=== PATIENT | male | born 1935 | race Caucasian/White ===

== ENCOUNTER 2017-03-12 13:19 | Emergency (ER) | payer MEDICARE, BC ==
[2017-03-12 14:34] LABS: #Eosinphils 0.3 thou/uL (0.0-0.7); #Lymphocytes 1.1 thou/uL (1.20-3.40); #Monocytes 0.8 thou/uL (0.11-0.59); #Neutrophils 8.3 thou/uL (1.40-6.50); %Basophils 0.4 % (0.0-1.0); %Eosinophils 2.7 % (0.0-10.0); %Lymphocytes 10.6 % (21.0-51.0); %Monocytes 7.7 % (0.0-10.0); %Neutrophils 78.6 % (42.0-75.0); Hemoglobin 14.9 g/dL (14.0-18.0); Mean Corpuscular Hemoglobin 34.3 pg (27.0-31.0); Mean Platelet Volume 9.4 fL (7.4-10.4); Platelet Count 166 thou/uL (130-400); Red Blood Cell (RBC) Count 4.35 mill/uL (4.70-6.10); White Blood Cell (WBC) Count 10.5 thou/uL (4.8-10.8)
--- NOTE | 2017-03-12 14:36 | RAD ---
PORTABLE AP CHEST: Date: 03-12-17 History: Worsening confusion. Altered mental status. Comparison: 08-14-12 FINDINGS: Post-surgical changes related to CABG are again noted. Fractured second sternal wire. Cardiac silhoue tte is magnified by projection and patient rotation. Pulmonary vasculature is within normal limits an d the lungs are clear. There has been no interval change from prior exam. IMPRESSION: No acute cardiopulmonary process. POS: [facility]
[2017-03-12 14:54] LABS: ALT (SGPT) 32 U/L (8-55); AST (SGOT) 24 U/L (5-34); Albumin 4.1 g/dL (3.4-4.8); Alkaline Phosphatase 50 U/L (40-150); Anion Gap 16 mmol/L (10-20); BUN (Urea Nitrogen) 16 mg/dL (8.4-25.7); Bilirubin, Total 0.6 mg/dL (0.2-1.2); Calc. Creatinine Clearance 0 mL/min (70-130); Calcium 10.2 mg/dL (7.8-10.44); Carbon Dioxide 26 mmol/L (23-31); Chloride 96 mmol/L (98-107); Estimated GFR-MDRD 59; Globulin 3.6 g/dL (2.4-3.5); Glucose 150 mg/dL (83-110); Potassium 3.7 mmol/L (3.5-5.1); Protein, Total 7.7 g/dL (5.8-8.1); Sodium 134 mmol/L (136-145)
--- NOTE | 2017-03-12 15:50 | CT ---
NONCONTRAST CT HEAD: Date: 03-12-17 History: Worsening confusion/altered mental status. Comparison: 08-14-12 FINDINGS: Again noted are areas of encephalomalacia seen within the right frontoparietal and left parietal lobe s, larger in size on the right, which are unchanged from the prior exam. There is decreased attenuati on likely related to prior areas of infarction. Areas of decreased attenuation are again seen in the periventricular white matter, again most likely reflective of chronic small vessel ischemic changes. There is a small low density area seen within the left basal ganglia, not definitely present on the p rior study, suggestive of a lacunar infarction of indeterminate age. No acute cortical infarction, he morrhage, mass effect, or midline shift is seen. Cerebral volume loss is again noted. Ventricular sys tem is normal in size, shape, and position for the degree of sulcal atrophy. No other interval change . IMPRESSION: 1. 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 MRI would be a more sensitive s tudy for evaluation of acute infarction. 2. Areas of encephalomalacia in the right frontoparietal and left parietal lobes likely related to re mote areas of infarction. 3. Chronic small vessel ischemic changes and cerebral volume loss. POS: [facility]
[2017-03-12] MEDS ORDERED: Haloperidol 1 MG TAB ONE (18:15)
== END 2017-03-12 18:19 | disposition home or self-care (01) ==
LOC: ERS 13:19
DX: F03.90 Unspecified dementia, unspecified severity, without behavioral disturbance, psychotic disturbance, mood disturbance, and anxiety (principal); I10 Essential (primary) hypertension; I48.91 Unspecified atrial fibrillation
CPT/HCPCS: 36415; 70450; 71045; 80053; 85025

== ENCOUNTER 2017-04-02 09:07 | Outpatient (CLI) | payer MEDICARE, BC ==
--- NOTE | 2017-04-02 10:39 | MRI ---
MRI BRAIN NONCONTRAST: DATE: 04/02/17 HISTORY: 82-year-old male with R41.3 memory impairment, F91.9 behavioral change, and dementia. COMPARISON: MRI of 08/15/12. FINDINGS: There is diffuse brain parenchymal volume loss. There is mild to moderate ventriculomegaly on an ex v acuo basis due to the diffuse parenchymal volume loss. There is a moderate sized region of right devaughn etal encephalomalacia and gliosis representing an old infarction in the right MCA territory. There is a smaller region of contralateral left parietal encephalomalacia and gliosis representing an old infarction in the left MCA territory. This has mild hemosiderin staining, indicating previous mi ld hemorrhagic transformation. There is a stronger but smaller focal hemosiderin stain at the posterior aspect of the right external capsule consistent with a small focus of prior hemorrhage. There are several tiny focal discrete T2 hyperintensities in the inferior aspect of the left basal ganglia, most of which represent mildly dil ated Virchow-Moreno spaces. There are more patchy, ill-defined regions of T2 hyperintensity in the bibiana ateral thalami and bilateral basal ganglia, suggestive of chronic ischemic changes. There are moderat e chronic ischemic white matter changes in the periventricular white matter and deep cerebral white m atter. There is no restricted diffusion to indicate any acute infarction. There is no acute intracran ial hemorrhage. No mass effect, midline shift, or any significant interval change compared to 3. There are also chronic ischemic white matter changes of the kay and midbrain. IMPRESSION: 1. Moderate sized old right parietal infarction in the right middle cerebral artery territory. 2. Smaller old left parietal infarction in the left middle cerebral artery territory. 3. Small focus of remote hemorrhage in the posterior aspect of the right external capsule. 4. Chronic ischemic changes in the bilateral thalami and basal ganglia. 5. Involutional changes and diffuse, moderate chronic ischemic white matter changes. 6. No acute findings and no interval change compared to 08/15/12. JOSHUA Bejarano POS: [facility]
== END 2017-04-02 09:08 | disposition home or self-care (01) ==
LOC: MRI 09:07
PROVIDERS: ATTEND Student in an Organized Health Care Education/Training Program
DX: R41.3 Other amnesia (principal); F91.9 Conduct disorder, unspecified; G93.89 Other specified disorders of brain; Z86.73 Personal history of transient ischemic attack (TIA), and cerebral infarction without residual deficits
CPT/HCPCS: 36415; 70551; 82164; 82306; 82607; 84207; 84425; 85652; 86038; 86140; 86592; 95816

== ENCOUNTER 2017-05-05 12:33 | Observation (INO) | payer MEDICARE, BC ==
[2017-05-05 15:14] VITALS: BMI 26.9
[2017-05-05] MEDS ORDERED: Senokot 8.6 MG TAB PO PRN (17:02)
[2017-05-05] MEDS ORDERED: Calcium Carbonate 500 MG ChewTAB PO PRN (17:02)
[2017-05-05] MEDS ORDERED: Milk Of Magnesia 30 ML UDCUP PO PRN (17:02)
[2017-05-05] MEDS ORDERED: Nitroglycerin 0.4 MG TAB (25 Tab Bottle) PO PRN (17:02)
[2017-05-05] MEDS ORDERED: hydrALAZINE 20 MG/ML VIAL SLOW IVP PRN (17:07)
[2017-05-05] MEDS ORDERED: Haloperidol 1 MG TAB PO PRN (17:10)
[2017-05-05] MEDS ORDERED: Potassium Chloride 20 MEQ TAB PO SCH (17:15)
[2017-05-05] MEDS ORDERED: Magnesium Sulfate 2 GM in Sodium Chloride 0.9% 100 ML IVPB SCH (17:15)
[2017-05-05] MEDS ORDERED: Atropine Sulfate 1 mg/1 ml Vial IVP PRN (17:22)
[2017-05-05 17:53] LABS: Prothrombin Time 43.6 SEC (12.0-14.7)
[2017-05-05 17:55] LABS: INR-International Normal Ratio 4.3
[2017-05-05 18:18] LABS: Troponin I 0.014 ng/mL (< 0.028)
[2017-05-05] MEDS: Donepezil HCl 5 MG TAB PO SCH (19:42)
[2017-05-05] MEDS: Atorvastatin Calcium 20 MG TAB PO SCH (19:42)
[2017-05-05] MEDS: Docusate 100 MG CAP PO SCH (19:42)
[2017-05-05] MEDS: TROSPIUM 20 MG TABLET PO SCH (19:42)
--- NOTE | 2017-05-05 22:55 | PDOC.PN ---
- Subjective Encounter Start Date: 05/05/17 Encounter Start Time: 21:00 Patient seen and examined. Note dictated. - Objective Resuscitation Status: Resuscitation Status FULL:Full Resuscitation MAR Reviewed: Yes Vital Signs & Weight: Vital Signs (12 hours) Temp Pulse Resp BP BP BP BP 05/05/17 19:42 97.6 F 58 L 16 167/72 H 166/72 H 168/73 H 05/05/17 16:55 98.4 F 60 20 05/05/17 14:43 60 20 170/85 H Pulse Ox 05/05/17 19:42 95 05/05/17 16:55 05/05/17 14:43 96 Weight Weight 161 lb 14.4 oz I&O: 05/04/17 05/05/17 05/06/17 06:59 06:59 06:59 Intake Total 120 Output Total 386 Balance -266 EKG Reviewed by me: Yes (Afib with SVR) Phys Exam - Physical Examination Constitutional: NAD HEENT: PERRLA, moist MMs Neck: no nodes, no JVD, supple Respiratory: no wheezing, no rales, no rhonchi, clear to auscultation bilateral Cardiovascular: no rub, irregular Bradycardic, No heaves/pulsations Gastrointestinal: soft, non-tender, no distention, positive bowel sounds Musculoskeletal: no edema, pulses present Neurological: non-focal, normal sensation, moves all 4 limbs Psychiatric: A&O x 3 Skin: no rash Dx/Plan - Plan * Dictated Review of Systems - Review of Systems Constitutional: negative: fever, chills, sweats, weakness, malaise Eyes: negative: Pain, Vision Change, Conjunctivae Inflammation, Eyelid Inflammation, Redness ENT: negative: Ear Pain, Ear Discharge, Nose Pain, Nose Discharge, Nose Congestion, Mouth Pain, Mouth Swelling, Throat Pain, Throat Swelling, Other Respiratory: negative: Cough, Dry, Shortness of Breath, Hemoptysis, SOB with Excertion, Pleuritic Pain, Sputum, Wheezing Cardiovascular: chest pain. negative: palpitations, orthopnea, paroxysmal nocturnal dyspnea, edema, light headedness Gastrointestinal: negative: Nausea, Vomiting, Abdominal Pain, Diarrhea, Constipation, Melena, Hematochezia Genitourinary: negative: Dysuria, Frequency, Incontinence, Hematuria, Retention Musculoskeletal: negative: Neck Pain, Shoulder Pain, Arm Pain, Back Pain, Hand Pain, Leg Pain, Foot Pain Skin: negative: Rash, Lesions, Demario, Bruising Neurological: negative: Weakness, Numbness, Incoordination, Change in Speech, Confusion, Seizures - Medications/Allergies Allergies/Adverse Reactions: Allergies Allergy/AdvReac Type Severity Reaction Status Date / Time Sulfa (Sulfonamide Allergy Unknown Verified 08/14/12 20:28 Antibiotics) MARIA T Inhibitors Allergy Anaphylaxis Verified 08/14/12 20:28 trimethoprim Allergy Verified 05/05/17 16:23 Medications: Current Medications Acetaminophen (Tylenol) 650 mg PO Q4H PRN PRN Reason: Headache/Fever or Pain Amlodipine Besylate (Norvasc) 5 mg PO DAILY [facility] Aspirin (Ecotrin) 81 mg PO DAILY [facility] Atorvastatin Calcium (Lipitor) 20 mg PO HS [facility] Last Admin: 05/05/17 19:42 Dose: 20 mg Atropine Sulfate (Atropine) 0.5 mg IVP ASDIR PRN PRN Reason: Sustained Bradycardia Calcium Carbonate (Tums) 1,000 mg PO Q4H PRN PRN Reason: Heartburn or Indigestion Docusate Sodium (Colace) 100 mg PO BID [facility] Last Admin: 05/05/17 19:42 Dose: Not Given Donepezil HCl (Aricept) 5 mg PO HS [facility] Last Admin: 05/05/17 19:42 Dose: 5 mg HCTZ/Losartan Potassium (Hyzaar 100/25) 1 tab PO DAILY [facility] Haloperidol (Haldol) 1 mg PO HS PRN PRN Reason: Anxiety Hydralazine HCl (Apresoline) 5 mg SLOW IVP Q4H PRN PRN Reason: SBP Greater Than 180 Magnesium Hydroxide (Milk Of Magnesium) 30 ml PO DAILYPRN PRN PRN Reason: Constipation Miscellaneous Medication (Pharmacy To Dose) 1 each PO PRN PRN PRN Reason: Pharmacy to dose Nitroglycerin (Nitrostat) 0.4 mg PO Q5MIN PRN PRN Reason: Chest Pain Potassium Chloride (Klor-Con 10) 10 meq PO QAM-WM [facility] Senna (Senokot) 2 tab PO HSPRN PRN PRN Reason: Constipation Sertraline HCl (Zoloft) 100 mg PO DAILY [facility] Sodium Chloride (Flush - Normal Saline) 10 ml IVF PRN PRN PRN Reason: Saline Flush Trospium (Trospium) 20 mg PO BID [facility] Last Admin: 05/05/17 19:42 Dose: 20 mg Warfarin Sodium (Coumadin) 6 mg PO SuTuWeFrSa@1700 JOSSUE Warfarin Sodium (Coumadin) 5 mg PO MoTh@1700 JOSSUE
--- NOTE | 2017-05-05 23:23 | HP ---
DATE OF ADMISSION: 05/05/2017 Please note that patient is a direct admit from [facility]. This patient was admitted by [facility] team. The patient's primary care is Dr. Santillan. For this reason, patient's care was transferred to [facility]. CHIEF COMPLAINT: Near syncopal episode. HISTORY OF PRESENT ILLNESS: Patient is an 82-year-old male with chronic atrial fibrillation on anticoagulation, coronary artery disease, status post CABG, hypertension, and hyperlipidemia presented to [facility] Emergency Room with an episode of near syncope this morning around 7:00 a.m. History is somewhat limited from the patient. No family members at the bedside. History was obtained partially from the patient and the ER records. Patient has had a brief episode of near syncopal episode at home. He had mild chest discomfort without any diaphoresis, nausea, vomiting, or palpitations. He felt sick to his stomach; however, denies any vomiting. No seizure, fall, or injuries reported. At [facility], his initial vital signs showed temperature 97.6 with respiration of 19, pulse rate of 40 with a blood pressure 171/77 with O2 saturation 95% on room air. His initial EKG showed atrial fibrillation with slow ventricular response with heart rate in 40s. His potassium was 3.4 with magnesium of 1.5. He was then transferred to this facility for hospital admission. He denies any chest discomfort at this time. PAST MEDICAL HISTORY: 1. Coronary artery disease, status post coronary artery bypass grafting. 2. Chronic atrial fibrillation on anticoagulation. 3. Hypertension. 4. Hyperlipidemia. 5. Depression 6. History of vitamin B12 deficiency. 7. Alzheimer dementia. 8. History of CVA without any residual deficits. 9. History of carotid artery disease. 10. Overactive bladder. 11. Recent RUE Staph Cellulitis completed 12 days of Atbx per spouse. PAST SURGICAL HISTORY: 1. Coronary artery bypass grafting x3 in 2000. 2. Hernia surgery. 3. Tonsillectomy. ALLERGIES: Patient is allergic to SULFA, MARIA T INHIBITOR, and BACTRIM. CURRENT HOME MEDICATIONS: Warfarin, Detrol LA 4 mg at bedtime, Zoloft 100 mg daily, sublingual nitroglycerin as needed, losartan/hydrochlorothiazide 100/25 daily, probiotics daily, Haldol 1 mg at bedtime p.r.n., Aricept 5 mg at bedtime , carvedilol 6.25 mg b.i.d., Lipitor 20 mg at bedtime, aspirin 81 mg daily, amlodipine 5 mg daily. SOCIAL HISTORY: Patient currently lives at home with his . He is a nonsmoker. Drinks alcohol socially. He is retired. He has total of 4 children. FAMILY HISTORY: Mother and father with heart disease. Review of systems, physical examination, and EKG finding, please refer to my progress notes. LABORATORY FINDINGS: At outside emergency room showed WBC of 9.8 with hemoglobin 13.4. BUN 25, creatinine 1.31, sodium 136, potassium 3.4, chloride 99, bicarb 34. D-dimer was negative. Urinalysis was negative for wbc or bacteria. Chest x-ray at outside facility was negative for infiltrate or edema. INR was 4.3. Repeat troponin was negative. TSH was 1.58. EKG by my review as discussed above. IMPRESSION: 1. Near syncope secondary to bradycardia. 2. Coronary artery disease, status post coronary artery bypass graft. 3. Hypertension. 4. Hyperlipidemia. 5. Alzheimer's dementia. 6. History of carotid stenosis. 7. Depression. PLAN: Patient will be monitored in the telemetry unit. Cardiology will be consulted. We will hold beta blockers. We will replace potassium and magnesium. We will recheck labs in a.m. Continue other home medications. Hold Coumadin due to elevated INR. DISPOSITION: Probably in 24 hours if his heart rate improves. MTDD
[2017-05-05] MEDS: Acetaminophen 325 MG TAB PO PRN (23:40)
[2017-05-06] MEDS: Acetaminophen 325 MG TAB PO PRN (03:44)
[2017-05-06 05:40] LABS: Prothrombin Time 45.8 SEC (12.0-14.7)
[2017-05-06 05:51] LABS: INR-International Normal Ratio 4.6
[2017-05-06 06:05] LABS: Albumin 3.5 g/dL (3.4-4.8); Anion Gap 10 mmol/L (10-20); BUN (Urea Nitrogen) 23 mg/dL (8.4-25.7); BUN/Creatinine Ratio 17.83; Calc. Creatinine Clearance 47 mL/min (70-130); Carbon Dioxide 31 mmol/L (23-31); Chloride 99 mmol/L (98-107); Estimated GFR-MDRD 54; Glucose 141 mg/dL (83-110); Magnesium 2.2 mg/dL (1.6-2.6); Potassium 4.3 mmol/L (3.5-5.1); Sodium 136 mmol/L (136-145)
[2017-05-06] MEDS ORDERED: Potassium Chloride 10 MEQ TAB PO SCH (08:00)
[2017-05-06] MEDS: TROSPIUM 20 MG TABLET PO SCH ×2 (09:38→20:56)
[2017-05-06] MEDS: Docusate 100 MG CAP PO SCH ×2 (09:39→20:56)
[2017-05-06] MEDS: Losartan/Hydrochlorothiazide 100 mg/25 mg Tablet PO SCH (09:39)
[2017-05-06] MEDS: Aspirin 81 mg Enteric Coated Tablet PO SCH (09:39)
[2017-05-06] MEDS: Amlodipine 5 MG TAB PO SCH (09:39)
--- NOTE | 2017-05-06 15:48 | CT ---
CT OF HEAD NONCONTRAST 05/06/17 COMPARISON: 03/12/17 INDICATION: Near syncope. FINDINGS: Redemonstration of bilateral encephalomalacia more notable on the right, superimposed upon moderate c hronic microvascular ischemic disease. There is no intracranial hemorrhage, mass effect or midline sh ift. No acute fluid levels of the paranasal sinuses. IMPRESSION: 1. No acute intracranial hemorrhage or mass effect. 2. Extensive chronic ischemic disease is redemonstrated. POS: [facility]
--- NOTE | 2017-05-06 16:15 | PRG ---
DATE OF SERVICE: 05/06/2017 SUBJECTIVE: Mr. Jamil has improved. The patient's heart rate has been in the upper 40s to 60s. He has not been up to ambulate. No current complaints. PHYSICAL EXAMINATION: VITAL SIGNS: Blood pressure 147/67, pulse 58, temperature afebrile. LUNGS: Clear to auscultation. HEART: Irregular, irregular. ABDOMEN: Soft, nontender, nondistended. EXTREMITIES: No edema. IMPRESSION: 1. Syncope. 2. Bradycardia. 3. Coronary artery disease, status post bypass surgery. RECOMMENDATIONS: 1. Discontinue beta matt therapy. 2. Ambulate. 3. If heart rate appears stable, would be okay for discharge from my standpoint with close outpatien t followup with 3-week event recorder.
[2017-05-06] MEDS ORDERED: Warfarin Sodium 5 MG TAB PO SCH (17:00)
[2017-05-06] MEDS ORDERED: cefTRIAXone\\ROCEPHIN 1 GM in Sodium Chloride 0.9% 100 ML IVPB SCH (18:00)
--- NOTE | 2017-05-06 18:04 | CON ---
DATE OF CONSULTATION: 05/05/2017 REASON FOR CONSULTATION: Bradycardia and syncope. REFERRING PROVIDER: Niraj Morales M.D. HISTORY OF PRESENT ILLNESS: Mr. Jamil is an 82-year-old gentleman whom I have seen and evaluated in the past. He recently presented with syncope. His heart rate in outside emergency room was in the 30s to 60s. He has been on a beta matt therapy 6.25 mg p.o. b.i.d. He denied chest pain, pressur e, shortness of breath or other associated symptoms. PAST MEDICAL HISTORY: Atrial fibrillation, hypertension, TIA, CAD, status post bypass surgery, kidne y removal, right leg surgery, and gout. ALLERGIES: SULFA and LISINOPRIL. HOME MEDICATIONS: Include Coumadin, tolterodine, losartan, , sertraline, Detrol, Coumadin, Nor vasc, Lipitor, carvedilol, and nitroglycerin p.r.n. REVIEW OF SYSTEMS: Ten point review of systems reviewed and is as above, negative. PHYSICAL EXAMINATION: GENERAL: Patient is a pleasant male who is in no acute distress. The patient appears his stated age . VITAL SIGNS: Blood pressure 143/69, pulse 65, temperature afebrile. NEUROLOGIC: The patient is alert and oriented times 3 with no focal neurologic deficits. HEENT: Sclerae without icterus. Mouth has moist mucous membranes with normal pallor. NECK: No JVD. Carotid upstroke brisk. No bruits bilaterally. LUNGS: Clear to auscultation with unlabored respirations. BACK: No scoliosis or kyphosis. CARDIAC: Irregularly irregular. ABDOMEN: Soft, nontender, nondistended. No peritoneal signs present. No hepatosplenomegaly. No ab normal striae. EXTREMITIES: 2+ femoral and 2+ dorsalis pedis pulses. No cyanosis, clubbing, or edema. SKIN: No gross abnormalities. EXTREMITIES: No gross abnormalities. PERTINENT LABORATORY DATA: INR 4.6, creatinine 1.29. IMPRESSION: 1. Atrial fibrillation with slow ventricular response. 2. Coronary artery disease. 3. Status post bypass surgery. 4. Recent diagnosis of dementia. RECOMMENDATIONS: At this point, we will stop beta matt therapy and continue to monitor on telemet ry. He appears to currently be asymptomatic. His syncope likely related to bradycardia. If he cont inues to be bradycardic and symptomatic, we would therefore recommend pacemaker implantation, but at this point, do not see the need. Further recommendations pending the above.
--- NOTE | 2017-05-06 19:16 | PDOC.PN ---
- Subjective Encounter Start Date: 05/06/17 Encounter Start Time: 17:00 Patient seen and examined. Spouse noticed redness around the Rt forearm and wrist this afternoon. No overnight events - Objective Resuscitation Status: Resuscitation Status FULL:Full Resuscitation MAR Reviewed: Yes Vital Signs & Weight: Vital Signs (12 hours) Temp Pulse Resp BP BP BP BP 05/06/17 15:40 98.5 F 65 16 05/06/17 11:58 58 L 18 147/67 H 05/06/17 09:57 114/65 05/06/17 09:55 158/67 H 131/59 L 05/06/17 07:54 98.2 F 65 18 153/77 H 05/06/17 07:52 BP Pulse Ox 05/06/17 15:40 168/75 H 93 L 05/06/17 11:58 05/06/17 09:57 05/06/17 09:55 142/69 H 05/06/17 07:54 93 L 05/06/17 07:52 96 Weight Weight 161 lb 14.4 oz I&O: 05/05/17 05/06/17 05/07/17 06:59 06:59 06:59 Intake Total 410 Output Total 386 Balance 24 Result Diagrams: 05/06/17 04:54 Phys Exam - Physical Examination Constitutional: NAD Respiratory: no wheezing, no rhonchi Cardiovascular: RRR, no rub Gastrointestinal: soft, non-tender, positive bowel sounds Musculoskeletal: no edema RUE with erythema over the forearm. Fluctuance over the Rt thenar Neurological: non-focal, moves all 4 limbs Dx/Plan - Plan DVT proph w/SCDs IMPRESSION: 1. Near syncope secondary to bradycardia. Betablockers dced. HR improving 2. RUE cellulitis 3. Hypertension. 4. Hyperlipidemia. 5. Alzheimer's dementia. 6. Hypokalemia/Hypomagnesemia - replaced 7. Depression. 8. Coronary artery disease, status post coronary artery bypass graft/History of carotid stenosis. PLAN: * Event monitor at dc * Will start Vanc/Ceftriaxone due to RUE cellulitis * Blood cultures * AM labs * Obtain records from recent hospitalization for cellulitis * Cont other meds as below Review of Systems - Review of Systems Respiratory: negative: Cough, Dry, Shortness of Breath, Hemoptysis, SOB with Excertion, Pleuritic Pain, Sputum, Wheezing Cardiovascular: negative: chest pain, palpitations, orthopnea, paroxysmal nocturnal dyspnea, edema, light headedness Gastrointestinal: negative: Nausea, Vomiting, Abdominal Pain, Diarrhea, Constipation, Melena, Hematochezia - Medications/Allergies Allergies/Adverse Reactions: Allergies Allergy/AdvReac Type Severity Reaction Status Date / Time Sulfa (Sulfonamide Allergy Unknown Verified 08/14/12 20:28 Antibiotics) MARIA T Inhibitors Allergy Anaphylaxis Verified 08/14/12 20:28 trimethoprim Allergy Verified 05/05/17 16:23 Medications: Current Medications Acetaminophen (Tylenol) 650 mg PO Q4H PRN PRN Reason: Headache/Fever or Pain Last Admin: 05/06/17 03:44 Dose: 650 mg Amlodipine Besylate (Norvasc) 5 mg PO DAILY [facility] Last Admin: 05/06/17 09:39 Dose: 5 mg Aspirin (Ecotrin) 81 mg PO DAILY [facility] Last Admin: 05/06/17 09:39 Dose: 81 mg Atorvastatin Calcium (Lipitor) 20 mg PO HS [facility] Last Admin: 05/05/17 19:42 Dose: 20 mg Atropine Sulfate (Atropine) 0.5 mg IVP ASDIR PRN PRN Reason: Sustained Bradycardia Calcium Carbonate (Tums) 1,000 mg PO Q4H PRN PRN Reason: Heartburn or Indigestion Docusate Sodium (Colace) 100 mg PO BID [facility] Last Admin: 05/06/17 09:39 Dose: 100 mg Donepezil HCl (Aricept) 5 mg PO HS [facility] Last Admin: 05/05/17 19:42 Dose: 5 mg HCTZ/Losartan Potassium (Hyzaar 100/25) 1 tab PO DAILY [facility] Last Admin: 05/06/17 09:39 Dose: 1 tab Haloperidol (Haldol) 1 mg PO HS PRN PRN Reason: Anxiety Hydralazine HCl (Apresoline) 5 mg SLOW IVP Q4H PRN PRN Reason: SBP Greater Than 180 Vancomycin HCl 1 gm/ Device 200 mls @ 200 mls/hr IVPB 2000 [facility] Ceftriaxone Sodium 1 gm/ (Syringe 0.4 ml/ Sterile Water) 10 mls @ 120 mls/hr SLOW IVP Q24HR@1800 [facility] Magnesium Hydroxide (Milk Of Magnesium) 30 ml PO DAILYPRN PRN PRN Reason: Constipation Miscellaneous Medication (Pharmacy To Dose) 1 each PO PRN PRN PRN Reason: Pharmacy to dose Miscellaneous Medication (Pharmacy To Dose) 1 each IVPB PRN PRN PRN Reason: Pharmacy to dose Nitroglycerin (Nitrostat) 0.4 mg PO Q5MIN PRN PRN Reason: Chest Pain Senna (Senokot) 2 tab PO HSPRN PRN PRN Reason: Constipation Sertraline HCl (Zoloft) 100 mg PO DAILY [facility] Last Admin: 05/06/17 09:39 Dose: 100 mg Sodium Chloride (Flush - Normal Saline) 10 ml IVF PRN PRN PRN Reason: Saline Flush Trospium (Trospium) 20 mg PO BID [facility] Last Admin: 05/06/17 09:38 Dose: 20 mg Warfarin Sodium (Coumadin) 6 mg PO SuTuWeFrSa@1700 JOSSUE Warfarin Sodium (Coumadin) 5 mg PO MoTh@1700 JOSSUE
[2017-05-06] MEDS ORDERED: Vancomycin HCl 1 GM in Premix Bag 1 BAG IVPB SCH (20:00)
[2017-05-06] MEDS: cefTRIAXone\\ROCEPHIN 1 GM, Syringe 0.4 ML in Sterile Water 9.6 ML SLOW IVP SCH (20:51)
[2017-05-06] MEDS: Donepezil HCl 5 MG TAB PO SCH (20:56)
[2017-05-06] MEDS: Atorvastatin Calcium 20 MG TAB PO SCH (20:56)
[2017-05-07 05:10] LABS: INR-International Normal Ratio 3.3; Prothrombin Time 34.7 SEC (12.0-14.7)
[2017-05-07 05:27] LABS: Anion Gap 11 mmol/L (10-20); BUN (Urea Nitrogen) 19 mg/dL (8.4-25.7); Calc. Creatinine Clearance 56 mL/min (70-130); Calcium 8.8 mg/dL (7.8-10.44); Carbon Dioxide 29 mmol/L (23-31); Chloride 96 mmol/L (98-107); Estimated GFR-MDRD 65; Glucose 129 mg/dL (83-110); Magnesium 1.7 mg/dL (1.6-2.6); Potassium 3.6 mmol/L (3.5-5.1); Sodium 132 mmol/L (136-145)
[2017-05-07 06:06] LABS: #Eosinphils 0.2 thou/uL (0.0-0.7); #Lymphocytes 1.2 thou/uL (1.20-3.40); #Neutrophils 7.3 thou/uL (1.40-6.50); %Basophils 0.2 % (0.0-1.0); %Eosinophils 1.7 % (0.0-10.0); %Lymphocytes 12.1 % (21.0-51.0); %Monocytes 10.7 % (0.0-10.0); %Neutrophils 75.3 % (42.0-75.0); Hemoglobin 12.9 g/dL (14.0-18.0); Mean Corpuscular HGB CONC 33.4 g/dL (32.0-36.0); Mean Corpuscular Hemoglobin 32.7 pg (27.0-31.0); Mean Corpuscular Volume 98.1 fl (80.0-94.0); Mean Platelet Volume 9.1 fL (7.4-10.4); PLT Morphology Comment Appears Decreased; Platelet Count 116 thou/uL (130-400); RBC Distribution Width 12.5 % (11.5-14.5); Red Blood Cell (RBC) Count 3.95 mill/uL (4.70-6.10); White Blood Cell (WBC) Count 9.7 thou/uL (4.8-10.8)
--- NOTE | 2017-05-07 09:39 | PRG ---
DATE OF SERVICE: 05/07/2017 Mr. Jamil is doing well. I spoke with Dr. Morales today. It appears he has a cellulitis to his arm. From a heart rate standpoint, he has been stable. Heart rates have been in the 50s-60s, stop beta b locker therapy. PHYSICAL EXAMINATION: VITAL SIGNS: Blood pressure 152/70, pulse 72, temperature 97.3. LUNGS: Clear to auscultation. CARDIAC: Irregularly irregular. ABDOMEN: Soft, nontender, nondistended. EXTREMITIES: No edema. IMPRESSION: Bradycardia. RECOMMENDATIONS: From a cardiovascular standpoint, Mr. Jamil is doing well. It would be okay from my standpoint to discharge tele if he is anticipating a longer hospitalization. We will hold off on beta matt therapy. Recommend a 3-week event recorder.
[2017-05-07] MEDS: Amlodipine 5 MG TAB PO SCH ×2 (09:52→20:23)
[2017-05-07] MEDS: Aspirin 81 mg Enteric Coated Tablet PO SCH (09:52)
[2017-05-07] MEDS: Docusate 100 MG CAP PO SCH ×2 (09:52→21:53)
[2017-05-07] MEDS: Losartan/Hydrochlorothiazide 100 mg/25 mg Tablet PO SCH (09:52)
[2017-05-07] MEDS: TROSPIUM 20 MG TABLET PO SCH ×2 (09:53→20:23)
--- NOTE | 2017-05-07 14:46 | CON ---
DATE OF CONSULTATION: 05/07/2017 REASON FOR CONSULTATION: Concern with inflammatory changes, right upper extremity. HISTORY OF PRESENT ILLNESS: An 82-year-old patient with history of ischemic cardiomyopathy, atrial f ibrillation, and episodes of syncopal events with prior coronary bypass graft surgery. 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 The patient had been admitted to a hospital in [place] a few weeks ago for what the describes as an inflammatory process in th e right upper extremity, localized around the right hand extending to the more proximal aspects of th e right forearm. This was treated with IV antimicrobial therapy. We do not have yet the records fro [facility] to review, the patient was discharged home and I believe yesterday had another syncop al event and EMT was activated. He was brought to [facility] and transferred over her e. Initial findings included temperature 97.6, BP 160/72, pulse 58, and respiratory rate 16. The ex am was fairly unremarkable. Apparently over the course of the first 24 hours, he developed some swel ling and tenderness in the right first MCP joint and skin area extending towards the proximal forearm and was started on antimicrobial therapy. Dr. Page has evaluated the patient yesterday and fel t that he had atrial fibrillation with slow ventricular response. Beta matt therapy was discontin ued and he was continued to be monitored. It felt that his syncopal event was due to bradycardia. P ossibility of pacemaker implantation was discussed. Currently, Mr. Jamil is awake. He has signific ant cognitive impairment. is in the room with him. Denies headaches, visual symptoms, sore thr oat, odynophagia or dysphagia and little bit of shoulder pain. The patient has had pain in the ankle s intermittently related to gout or gouty arthritis. No back pain, no dyspnea or chest pain, no abdo jovita pain or diarrhea, voids without difficulty. No other joint symptoms outside the areas mentione d above. The patient is oriented to himself and knows he is in the hospital, but could not tell me t he name or the date. Recollection is quite limited. PAST MEDICAL HISTORY: Coronary artery disease with bypass graft surgery, atrial fibrillation previou sly on beta-blockers and warfarin, hypertension, hyperlipidemia, depression, vitamin B12 deficiency, history of gout, mostly involving ankle regions and a history of this possible cellulitis in the righ t forearm treated with IV antimicrobial therapy. PAST SURGICAL HISTORY: As above. Also, herniorrhaphy and tonsillectomy. ALLERGIES: SULFA DRUGS, MARIA T INHIBITOR, and BACTRIM. MEDICATIONS: Warfarin, Detrol, Zoloft, losartan, probiotics, Haldol, Aricept, Coreg, Lipitor, aspiri n, Norvasc. SOCIAL HISTORY: Lives with in [place]. Never a smoker, retired. FAMILY HISTORY: Noncontributory. CURRENT MEDICATIONS: Include the ones mentioned above, Rocephin and vancomycin. PHYSICAL EXAMINATION: VITAL SIGNS: Patient has been afebrile through the hospital stay. BP 152/70, pulse 68, respirations 18, O2 sat 94 to 96%. GENERAL: Appears no distress, awake, alert, oriented. Oral cavity with still quite a few teeth in p lace with the expected decay and gum disease. NECK: Supple, no jugular vein distention, no carotid bruits. LUNGS: With symmetric, clear breath sounds. HEART: S1, S2, regular rate. No S3 or S4. ABDOMEN: Soft, not distended or tender. No ascites. No bladder distention. EXTREMITIES: The patient has some swelling of the right MCP joint. No erythema noted in the skin an ywhere. No areas of induration or evidence of phlebitis noted in the right upper extremity. There i s some tenderness in the first right MCP joint. ABDOMEN: Soft, nondistended noted. No clubbing, cyanosis or edema. Pulses are 1+ in dorsalis pedis . He has what appears to be resting tremor in the right side of his extremities. NEUROLOGIC: His cognitive function is as described above. LABORATORY DATA: Sodium 136, creatinine 1.29, GFR 54. I do not have a previous uric acid submitted. There is an SUE screen from March this year was nonreactive. The white cell count 9.7, hemoglobi n 12.9, platelets 116 with 75% neutrophils. INR 4.3 and 4.6. Microbiology with 2 sets of blood cult ures thus far no growth. He had brain CT, was not remarkable. Brain MRI with old CVAs. Previous est x-ray from March with no acute cardiopulmonary process. ASSESSMENT: 1. Ischemic cardiomyopathy, atrial fibrillation, bradycardia with syncopal event. 2. Inflammatory process right upper extremity with first metacarpophalangeal joint involvement, poss ible cellulitis described during the recent admission in the hospital in [place]. DISCUSSION: The differential diagnosis includes gouty arthritis involving the right first MCP joint as the most likely scenario. Cellulitis is less likely. There is no evidence of cellulitis at this point in time. We need to obtain records from the hospital in [place] but I would switch him to Co lcrys, check uric acid serum level and x-rays of the right hand. Discontinue antimicrobial therapy.
--- NOTE | 2017-05-07 15:45 | RAD ---
THREE VIEWS OF THE RIGHT HAND 05/07/17 COMPARISON: None. HISTORY: Swelling of the right thenar eminence. FINDINGS: There is widening of the scapholunate interspace, evidence of a scapholunate ligament tear. There is chondrocalcinosis in the region of the triangular fibrocartilage complex. There is severe degenerative change at the first carpometacarpal joint with joint space narrowing, hawkins bchondral sclerosis and osteophyte formation. There is prominent degenerative change at the second and third metacarpophalangeal joints and to a le sser degree, the first and fourth metacarpophalangeal joints. There is also significant degenerative change involving the distal interphalangeal joint of the secon d and third digits. IMPRESSION: 1. Prominent multilevel osteoarthritic changes. 2. No acute fracture or dislocation. 3. Widening of the scapholunate interval, evidence of scapholunate ligament rupture. 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 POS: ANTONIO
[2017-05-07] MEDS ORDERED: Warfarin Sodium 3 MG TAB PO SCH (17:00)
[2017-05-07] MEDS: cefTRIAXone\\ROCEPHIN 1 GM, Syringe 0.4 ML in Sterile Water 9.6 ML SLOW IVP SCH (18:17)
[2017-05-07] MEDS ORDERED: hydrALAZINE 20 MG/ML VIAL SLOW IVP PRN (18:29)
--- NOTE | 2017-05-07 18:29 | PDOC.PN ---
- Subjective Encounter Start Date: 05/07/17 Encounter Start Time: 17:00 Patient seen and examined. Rt hand swelling improving. No overnight events - Objective Resuscitation Status: Resuscitation Status FULL:Full Resuscitation MAR Reviewed: Yes Vital Signs & Weight: Vital Signs (12 hours) Temp Pulse Resp BP BP Pulse Ox 05/07/17 17:01 165/79 H 05/07/17 15:57 97.8 F 76 20 179/73 H 94 L 05/07/17 11:10 98.4 F 59 L 16 148/66 H 96 05/07/17 08:00 98.2 F 68 18 05/07/17 07:25 97.3 F L 72 16 152/70 H 94 L Weight Weight 161 lb 14.4 oz I&O: 05/06/17 05/07/17 05/08/17 06:59 06:59 06:59 Intake Total 650 177 5818 Output Total 386 200 Balance 24 370 1640 Result Diagrams: 05/07/17 04:33 05/07/17 04:33 Radiology Reviewed by me: Yes (Hand XR - Pseudogout) EKG Reviewed by me: Yes (Tele SR) Phys Exam - Physical Examination Constitutional: NAD Respiratory: no wheezing, no rales, no rhonchi, clear to auscultation bilateral Cardiovascular: RRR, no rub no heaves/pulsations Gastrointestinal: soft, non-tender, no distention, positive bowel sounds Musculoskeletal: no edema improving Rt UE swelling/erythema Neurological: moves all 4 limbs Dx/Plan - Plan DVT proph w/SCDs IMPRESSION: 1. Near syncope secondary to bradycardia. Betablockers dced. HR improving 2. RUE cellulitis vs [address] st MCP Pseudogout flare 3. Hypertension - uncontrolled 4. Hyperlipidemia. 5. Alzheimer's dementia. 6. Hypokalemia/Hypomagnesemia - replaced 7. Depression. 8. Coronary artery disease, status post coronary artery bypass graft/History of carotid stenosis. PLAN: * DC ATbx per ID * Increase Amlodipine to 5 mg BID due to elevated BP * Event monitor at dc * Blood cultures pending * AM labs * DC summary from recent hospitalization reviewed * Add Colchicine * Cont other meds as below * Add Doxycycline Review of Systems - Review of Systems Respiratory: negative: Cough, Dry, Shortness of Breath, Hemoptysis, SOB with Excertion, Pleuritic Pain, Sputum, Wheezing Cardiovascular: negative: chest pain, palpitations, orthopnea, paroxysmal nocturnal dyspnea, edema, light headedness - Medications/Allergies Allergies/Adverse Reactions: Allergies Allergy/AdvReac Type Severity Reaction Status Date / Time Sulfa (Sulfonamide Allergy Unknown Verified 08/14/12 20:28 Antibiotics) MARIA T Inhibitors Allergy Anaphylaxis Verified 08/14/12 20:28 trimethoprim Allergy Verified 05/05/17 16:23 Medications: Current Medications Acetaminophen (Tylenol) 650 mg PO Q4H PRN PRN Reason: Headache/Fever or Pain Last Admin: 05/06/17 03:44 Dose: 650 mg Amlodipine Besylate (Norvasc) 5 mg PO BID [facility] Aspirin (Ecotrin) 81 mg PO DAILY [facility] Last Admin: 05/07/17 09:52 Dose: 81 mg Atorvastatin Calcium (Lipitor) 20 mg PO HS [facility] Last Admin: 05/06/17 20:56 Dose: 20 mg Atropine Sulfate (Atropine) 0.5 mg IVP ASDIR PRN PRN Reason: Sustained Bradycardia Calcium Carbonate (Tums) 1,000 mg PO Q4H PRN PRN Reason: Heartburn or Indigestion Colchicine (Colcrys) 0.3 mg PO BID [facility] Docusate Sodium (Colace) 100 mg PO BID [facility] Last Admin: 05/07/17 09:52 Dose: 100 mg Donepezil HCl (Aricept) 5 mg PO HS [facility] Last Admin: 05/06/17 20:56 Dose: 5 mg Doxycycline Hyclate (Vibramycin) 100 mg PO BID [facility] HCTZ/Losartan Potassium (Hyzaar 100/25) 1 tab PO DAILY [facility] Last Admin: 05/07/17 09:52 Dose: 1 tab Haloperidol (Haldol) 1 mg PO HS PRN PRN Reason: Anxiety Hydralazine HCl (Apresoline) 5 mg SLOW IVP Q4H PRN PRN Reason: SBP Greater Than 180 Magnesium Hydroxide (Milk Of Magnesium) 30 ml PO DAILYPRN PRN PRN Reason: Constipation Miscellaneous Medication (Pharmacy To Dose) 1 each PO PRN PRN PRN Reason: Pharmacy to dose Miscellaneous Medication (Pharmacy To Dose) 1 each IVPB PRN PRN PRN Reason: Pharmacy to dose Nitroglycerin (Nitrostat) 0.4 mg PO Q5MIN PRN PRN Reason: Chest Pain Senna (Senokot) 2 tab PO HSPRN PRN PRN Reason: Constipation Sertraline HCl (Zoloft) 100 mg PO DAILY [facility] Last Admin: 05/07/17 09:52 Dose: 100 mg Sodium Chloride (Flush - Normal Saline) 10 ml IVF PRN PRN PRN Reason: Saline Flush Trospium (Trospium) 20 mg PO BID [facility] Last Admin: 05/07/17 09:53 Dose: 20 mg Warfarin Sodium (Coumadin) 6 mg PO SuTuWeFrSa@1700 JOSSUE Warfarin Sodium (Coumadin) 5 mg PO MoTh@1700 JOSSUE
[2017-05-07] MEDS: Doxycycline 100 MG CAP PO SCH (20:23)
[2017-05-07] MEDS: Donepezil HCl 5 MG TAB PO SCH (20:24)
[2017-05-07] MEDS: Atorvastatin Calcium 20 MG TAB PO SCH (20:24)
[2017-05-07] MEDS: Colchicine 0.3 MG TAB PO SCH (20:25)
[2017-05-07] MEDS: Acetaminophen 325 MG TAB PO PRN (22:28)
[2017-05-08 04:52] LABS: INR-International Normal Ratio 1.7; Prothrombin Time 20.3 SEC (12.0-14.7)
[2017-05-08 07:56] VITALS: BP 146/66; TEMP 97.4
[2017-05-08] MEDS: Aspirin 81 mg Enteric Coated Tablet PO SCH (09:38)
[2017-05-08] MEDS: Doxycycline 100 MG CAP PO SCH (09:38)
[2017-05-08] MEDS: TROSPIUM 20 MG TABLET PO SCH (09:38)
[2017-05-08] MEDS: Losartan/Hydrochlorothiazide 100 mg/25 mg Tablet PO SCH (09:39)
[2017-05-08] MEDS: Amlodipine 5 MG TAB PO SCH (09:39)
[2017-05-08] MEDS: Docusate 100 MG CAP PO SCH (09:44)
[2017-05-08] MEDS: Colchicine 0.3 MG TAB PO SCH (10:02)
--- NOTE | 2017-05-08 13:19 | DIS ---
DATE OF DISCHARGE: 05/08/2017 DISCHARGE DISPOSITION: Home. FOLLOWUP: 1. Follow up with primary care physician, Dr. Santillan in 1 week. 2. Follow up with Dr. Page in 1 week. 3. Event monitor has been arranged by Dr. Page. ALLERGIES: Patient is allergic to SULFA, MARIA T INHIBITOR, and BACTRIM. DISCHARGE MEDICATIONS: Amlodipine 5 mg b.i.d., aspirin 81 mg daily, Lipitor 20 mg at bedtime, colchi cine 0.3 mg twice a day, Aricept 5 mg at bedtime, doxycycline 100 mg b.i.d. #14, Haldol as needed, pr obiotic 1 capsule daily, losartan/hydrochlorothiazide 100/25 daily, sublingual nitroglycerin as neede d, Zoloft 100 mg daily, Detrol-LA 4 mg at bedtime, Coumadin as directed. SIGNIFICANT LABORATORY: INR on the day of discharge is 1.7, on admission was 4.3. Creatinine 1.09 w ith BUN of 19. CRP was 9.6. INPATIENT CONSULTANTS: Dr. Page, Cardiology and Infectious Disease, Dr. King. BRIEF HOSPITAL COURSE: The patient is an 82-year-old male with chronic atrial fibrillation, on antic oagulation; coronary artery disease, status post CABG; hypertension; hyperlipidemia with recent staph infection at [facility], presented to the emergency room at [facility] with near syncope around 7:00 a.m. The patient was found to have bradycardia with heart rate in 40s . He was transferred to this facility and was accepted by the [facility] team. When the patient arrived, it was found that patient sees Dr. Santillan, for which the care was transferred t [facility]. Please refer to the history and physical dated 05/05/2017 for further details. The patient was admitted to the hospital with a diagnosis of near syncope secondary to bradycardia. Beta blockers were discontinued. He also had few sinus pauses on the monitor. The patient was evalu ated by Cardiology, Dr. Page. He had no more sinus pauses after discontinuation of the beta blo ckers. Due to elevated blood pressure, amlodipine has been increased to 5 mg twice a day. The next day the noticed some swelling of his right thenar eminence with some redness around his right forearm. He was started on broad spectrum antibiotics for suspected cellulitis. Blood cultur es were negative. The patient was evaluated by Dr. King. The x-ray of his hand is consistent with pseudogout. Antibiotics have been changed to doxycycline for suspected infection with acute pseudogo ut. He has shown good improvement with colchicine. Primary care physician advised to follow. The patient was advised to resume his INR check as scheduled. FINAL DIAGNOSES: 1. Near syncope secondary to bradycardia with sinus pause. Beta blockers discontinued. Event monit or arranged. 2. Right upper extremity cellulitis versus pseudogout flare. 3. Hypertension 4. Hyperlipidemia. 5. Alzheimer dementia. 6. Hypokalemia and hypomagnesemia on admission, resolved. 7. Depression. 8. Coronary artery disease, status post coronary artery bypass grafting. 9. History of carotid stenosis in the past. Primary care physician advised to follow. 10. Thrombocytopenia with platelet of 116. Primary care physician advised to follow. Please note t hat patient has history of chronic thrombocytopenia in the past. 11. Hyponatremia. 12. MARIA T INHIBITOR, SULFA AND BACTRIM allergy. Plan of care was discussed with the patient in detail. He stated understanding.
[2017-05-08] MEDS ORDERED: Warfarin Sodium 5 MG TAB PO SCH (17:00)
== END 2017-05-08 10:01 | disposition home or self-care (01) ==
LOC: 2SW 14:22
PROVIDERS: ADMIT Internal Medicine; ATTEND Internal Medicine
DX: R00.1 Bradycardia, unspecified (principal); I45.5 Other specified heart block; R55 Syncope and collapse; I10 Essential (primary) hypertension; E78.5 Hyperlipidemia, unspecified; G30.9 Alzheimer's disease, unspecified; F02.80 Dementia in other diseases classified elsewhere, unspecified severity, without behavioral disturbance, psychotic disturbance, mood disturbance, and anxiety; E87.6 Hypokalemia; E83.42 Hypomagnesemia; E87.1 Hypo-osmolality and hyponatremia; F32.9 Major depressive disorder, single episode, unspecified; I25.10 Atherosclerotic heart disease of native coronary artery without angina pectoris; D69.6 Thrombocytopenia, unspecified; I48.2 Chronic atrial fibrillation; L03.113 Cellulitis of right upper limb; Z88.1 Allergy status to other antibiotic agents; Z88.2 Allergy status to sulfonamides; Z88.8 Allergy status to other drugs, medicaments and biological substances; Z79.899 Other long term (current) drug therapy; Z95.1 Presence of aortocoronary bypass graft; Z79.01 Long term (current) use of anticoagulants; Z98.890 Other specified postprocedural states
CPT/HCPCS: 70450; 73130; 80048; 80069; 83735 ×2; 84443; 84484; 85025; 85610 ×4; 86140; 87040; 94760 ×3; 96365; 96367; 97139; G0378; G0379; 36415; A4216; J0696; J3370; J3475; J7050

== ENCOUNTER 2019-02-09 17:36 | Emergency (ER) | payer MEDICARE, BC ==
--- NOTE | 2019-02-09 19:46 | CT ---
Exam: Head CT without contrast HISTORY: Fall. Pain. COMPARISON: 05/06/2017 FINDINGS: Hemorrhage: No intraparenchymal hemorrhage or extra-axial hematoma. Brain parenchyma: Stable encephalomalacia involving the right temporal occipital parietal region and left occipital parietal region. Remainder of the cerebrum demonstrates preservation of cortical davison-white matter differentiation. Confluent white matter hypodensities due to chronic small vessel i schemic change. Ventricular system: Ventricles and sulci are patent and symmetric. Calvarium: Intact. Sinuses and mastoid air cells: Adequate aeration. IMPRESSION: No acute intracranial process. Stable encephalomalacia.
[2019-02-09] MEDS ORDERED: Lidocaine 1% w/Epinephrine 1:100K 20 ML VIAL ONE (20:43)
[2019-02-09] MEDS ORDERED: Lidocaine 4% Cream 5 GM TUBE w/ Tegaderm ONE (20:43)
--- NOTE | 2019-02-14 08:00 | CON ---
DATE OF CONSULTATION: CHIEF COMPLAINT: Left ear trauma. HISTORY OF PRESENT ILLNESS: An elderly male patient with history of dementia, taking Haldol with significant trauma, presenting with recent fall, resulting in left ear trauma and left ear laceration with hematoma and active bleeding. ENT consult was warranted given the patient was bleeding and the patient has significant ear trauma. The patient is alert and oriented, in normal mental status after emergency room evaluation. However, given risk for ear necrosis and cosmetic defect, emergency room recommended Otolaryngology consultation. PAST MEDICAL HISTORY: Please see HPI. PAST SURGICAL HISTORY: No known head and neck surgery. CURRENT MEDICATIONS: Please see electronic medical record. ALLERGIES: NO KNOWN DRUG ALLERGIES. 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 REVIEW OF SYSTEMS: SKIN: Negative. EYES: Negative. EARS, NOSE, AND THROAT: Please see HPI. RESPIRATORY: Negative. CARDIOVASCULAR: Negative. GASTROINTESTINAL: Negative. MUSCULOSKELETAL: Negative. NEUROLOGIC: Please see HPI. HEMATOLOGIC/LYMPHATIC/IMMUNOLOGIC: Please see HPI. ENDOCRINE: Negative. PHYSICAL EXAMINATION: GENERAL: No acute distress and is alert and oriented. HEAD AND FACE: Traumatic. Laceration to the left ear. No facial skin lesions. No maxillary tenderness. No frontal tenderness. No parotid gland masses or tenderness. No submandibular masses or lesions. EYES: Equally round and reactive to light pupils. Extraocular movements are intact. No nystagmus on lateral gaze. EARS: Left ear has a superior laceration that extends all the way from the root of the helix all the way through the cartilage and through the skin on the other side and the ear appears to be somewhat dusky and ischemic in the superior aspect. The inferior aspect is showing some active arterial bleeding. NOSE: External nose is normal. Nasal mucosa is healthy. Turbinates are healthy. No masses or lesions. No septal hematoma. ORAL CAVITY: Lips, teeth, and tongue are normal. Oral mucosa is moist. Tongue and floor of mouth are without masses. Palate and uvula without lesions with symmetric elevation. NECK: No lymphadenopathy. Trachea midline. Thyroid, normal size without apparent nodules. NEUROLOGIC: Grossly 2 through 12 are intact. Mood and affect are normal. PROCEDURE NOTE: The procedure is I and D and washout of hematoma and irrigation of wound, ligation of left ear arterial bleeding and complex wound and layered closure. The patient's ear was washed out. The wound was probed and a small hematoma was drained and some thick blood was removed. There was a small arterial bleeder on the inferior aspect of the helix of the ear, which was tied with chromic suture to stop bleeding. Once hemostasis was achieved, 1% lidocaine with 1:100,000 epinephrine 5 mL was injected in the ear for anesthetic. The cartilage was reapproximated with chromic suture and the skin anteriorly and posteriorly was approximated with a combination of interrupted as well as a running suture. The posterior aspect of the ear was also sutured with 5-0 Prolene suture in a horizontal mattress to reapproximate the height of the ear, which was lost. ASSESSMENT AND PLAN: Elderly gentleman, presenting with significant left ear trauma, hematoma, complex laceration, arterial bleeding, as well as some wound necrosis and ischemia. Given the patient's significant wound injury, I recommend the procedure of closing that ear as well as irrigating with wound debridement and complex layered closure and drainage of hematoma with followup in clinic. The patient should be on antibiotics over the course and should follow up within 7-10 days for removal of the sutures and for examination and repeat debridement if need be. Pain control per emergency room. Job ID: [id number]
== END 2019-02-09 22:29 | disposition home or self-care (01) ==
LOC: ERS 17:36
DX: S09.90XA Unspecified injury of head, initial encounter (principal); S01.312A Laceration without foreign body of left ear, initial encounter; I10 Essential (primary) hypertension; E78.00 Pure hypercholesterolemia, unspecified; I48.91 Unspecified atrial fibrillation; Z79.899 Other long term (current) drug therapy; Z79.01 Long term (current) use of anticoagulants; W18.30XA Fall on same level, unspecified, initial encounter
CPT/HCPCS: 70450

== ENCOUNTER 2020-01-13 19:14 | Inpatient (IN) | payer MEDICARE ==
[2020-01-13 20:30] LABS: Bacteria/HPF None Seen HPF (None Seen); Bilirubin Negative (Negative); Blood, Urine Negative (Negative); Clarity Clear (Clear); Glucose, Urine (Dipstick) Normal (Negative); Ketone, Urine Negative (Negative); Leukocyte Negative Leu/uL (Negative); Nitrite Negative (Negative); Protein, Urine (Dipstick) 70 mg/dL (Neg-Trace); RBC/HPF 0-3 HPF (0-3); Squamous Epithelial None Seen HPF (0-3); Urobilinogen Normal mg/dL (Less than 2); WBC/HPF 0-3 HPF (0-3); pH, Urine 6.5 (5.0-9.0)
--- NOTE | 2020-01-13 20:52 | CT ---
CT BRAIN WITHOUT CONTRAST: HISTORY:Weakness COMPARISON:02/24/2019 FINDINGS: There are foci of decreased attenuation in the periventricular white matter, consistent with chronic small vessel ischemic disease. Changes of bilateral encephalomalacia, right larger than left are stable. No evidence of acute infarct, hemorrhage, midline shift or abnormal extra-axial fluid collections is seen. The ventricular size is appropriate and the basilar cisterns are patent. The bony calvarium is intact. The visualized paranasal sinuses and mastoid air cells are well aerated. IMPRESSION: Stable exam. No CT evidence of acute intracranial process.
[2020-01-13 21:04] LABS: #Eosinphils 0.3 thou/uL (0.0-0.7); #Monocytes 1.4 thou/uL (0.11-0.59); #Neutrophils 8.1 thou/uL (1.40-6.50); %Basophils 0.3 % (0.0-1.0); %Lymphocytes 9.5 % (21.0-51.0); %Monocytes 12.7 % (0.0-10.0); %Neutrophils 74.4 % (42.0-75.0); Hemoglobin 14.1 g/dL (14.0-18.0); Mean Corpuscular HGB CONC 34.6 g/dL (32.0-36.0); Mean Corpuscular Hemoglobin 34.2 pg (27.0-31.0); Mean Corpuscular Volume 98.8 fL (78.0-98.0); Mean Platelet Volume 9.3 fL (7.4-10.4); Platelet Count 126 thou/uL (130-400); RBC Distribution Width 12.1 % (11.5-14.5); Red Blood Cell (RBC) Count 4.13 mill/uL (4.70-6.10); White Blood Cell (WBC) Count 10.8 thou/uL (4.8-10.8)
--- NOTE | 2020-01-13 21:13 | RAD ---
XR Chest 1 View Portable HISTORY: Hypoxia COMPARISON: 03/12/2017 FINDINGS: Changes of median sternotomy are again seen. Fracture second sternal wire is unchanged. The heart size is at upper limits of normal. The lungs are without focal areas of consolidation, pneumothorax or pleural effusions. IMPRESSION: No radiographic evidence of acute cardiopulmonary process.
[2020-01-13 21:18] LABS: ALT (SGPT) 25 U/L (8-55); AST (SGOT) 16 U/L (5-34); Albumin 4.1 g/dL (3.4-4.8); Alkaline Phosphatase 35 U/L (40-110); Anion Gap 15 mmol/L (10-20); BUN (Urea Nitrogen) 18 mg/dL (8.4-25.7); Bilirubin, Total 0.5 mg/dL (0.2-1.2); Calc. Creatinine Clearance 0 mL/min (70-130); Carbon Dioxide 28 mmol/L (23-31); Chloride 95 mmol/L (98-107); Estimated GFR-MDRD 45; Globulin 2.9 g/dL (2.4-3.5); Glucose 148 mg/dL (83-110); Potassium 3.5 mmol/L (3.5-5.1); Sodium 134 mmol/L (136-145)
[2020-01-14] MEDS: Sodium Chloride 0.9% 1,000 ML IV SCH ×3 (00:30→21:32)
[2020-01-14] MEDS: hydrALAZINE 25 MG TAB PO PRN ×3 (00:30→15:35)
[2020-01-14 00:42] VITALS: BMI 29.2
--- NOTE | 2020-01-14 02:12 | HP ---
REASON FOR ADMISSION: Difficulty with ambulation. HISTORY OF PRESENT ILLNESS: This is an 85-year-old male patient, who is demented, yesterday developed congestion, him and his who has been sick for a week. They slept in the recliner all night in the morning. The patient was able to go to the bathroom, but then at some point was not able to ambulate. He is able to move his lower extremities, but does not have the energy to stand up whenever he stands up his legs gave out and for that reason, the was concerned. She called EMS. Upon their arrival, his oxygen level was low. He was started on oxygen and brought to the ER. The does not report any fevers or chills. No cough. No sputum production. No diarrhea. No dysuria. I did review his records. The patient's last admission to our hospital was in February 2019 after he fell and developed a wound that needed a procedure on his ear. PAST MEDICAL HISTORY: 1. Dementia. 2. High blood pressure. 3. High cholesterol. 4. Depression. 5. Coronary artery disease status post CABG. 6. Carotid stenosis. 7. Atrial fibrillation. 8. Vitamin B12 deficiency. 9. Gout. 10. High cholesterol. ALLERGIES: TO SULFA, MARIA T INHIBITOR AND BACTRIM. FAMILY HISTORY: Noncontributory. SOCIAL HISTORY: Does not smoke. Does not drink alcohol. REVIEW OF SYSTEMS: Unable to obtain due to his dementia. PHYSICAL EXAMINATION: GENERAL: He is awake. He is confused. His is at the bedside providing with most of the information. VITAL SIGNS: His blood pressure is 176/106, pulse of 70, respiratory rate of 22, saturating 97% on room air. HEAD: Nontraumatic, normocephalic. Pupils equal, reactive. Extraocular movements are intact. Nonicteric sclerae. Well injected conjunctivae. Oral mucosa normal. Nasal mucosa normal. NECK: Supple. No adenopathy. No murmur. Thyroid is not palpable. Trachea is midline. No supraclavicular adenopathy. CARDIAC: S1, S2 irregular. No murmur. No gallops. No friction rubs. No displacement of PMI. LUNGS: Poor inspiratory effort. No wheezes. No rhonchi. No crackles. ABDOMEN: Bowel sounds are positive, nontender abdomen. No hepatosplenomegaly. EXTREMITIES: No lower extremity edema. No cyanosis noted on exam. He does have a resting tremor in his upper extremities. He is able to move his bilateral lower extremities. No focal neurological motor weakness detected. LABORATORY STUDIES: Blood work shows a WBC of 10.8, hemoglobin of 14.1%, platelets of 126. Sodium of 134, potassium 3.5, bicarb of 28, creatinine of 1.48, previous creatinine in couple years ago was 1, glucose 148, troponin 0.011. Urinalysis does not show any evidence of infection. COVID-[address] A CT of the brain shows stable exam. A chest x-ray shows no evidence of cardiopulmonary process. ASSESSMENT AND PLAN: 1. This is an 85-year-old male patient, who was brought by his stating that he today developed inability to ambulate. He is able to move his extremities. She says that he has been congested for the past 24 hours. Initially, EMS did detect a low oxygen level at home, but currently does not appear to be short of breath. He is not requiring oxygen. His blood pressure was elevated. He was given his home medication. Blood pressure remained slightly elevated. 2. Cardiac, the patient will be restarted on his blood pressure medications. He has history of atrial fibrillation, so we will continue with Coumadin and we will adjust his dose as per his INR. 3. In regard of his weakness, this could be due to a viral illness. He is now being swab for COVID-19. Also he appears to be dehydrated, witnessed by the increased creatinine. So, the plan is to gently hydrate him. Also hold his diuretics, reassess tomorrow and ask physical therapy to see him. 4. Renal system and electrolytes: The patient is to be slightly dehydrated. We will hold his diuretics and we will have him on IV fluids. 5. For DVT prophylaxis, he is on Coumadin. We will check his INR and we will have him on SCDs. I did discuss the code status with his and she is agreeable for him to receive cardiac resuscitation, but adamantly refusing him to be intubated, so the patient will be modified code. Job ID: [id number]
[2020-01-14 05:10] LABS: #Eosinphils 0.3 thou/uL (0.0-0.7); #Lymphocytes 1.2 thou/uL (1.20-3.40); #Monocytes 1.4 thou/uL (0.11-0.59); #Neutrophils 6.9 thou/uL (1.40-6.50); %Eosinophils 3.1 % (0.0-10.0); %Lymphocytes 12.5 % (21.0-51.0); %Neutrophils 70.3 % (42.0-75.0); Hemoglobin 13.2 g/dL (14.0-18.0); Mean Corpuscular HGB CONC 34.6 g/dL (32.0-36.0); Mean Corpuscular Hemoglobin 34.3 pg (27.0-31.0); Mean Corpuscular Volume 99.2 fL (78.0-98.0); Mean Platelet Volume 9.3 fL (7.4-10.4); Platelet Count 119 thou/uL (130-400); RBC Distribution Width 11.9 % (11.5-14.5); Red Blood Cell (RBC) Count 3.84 mill/uL (4.70-6.10); White Blood Cell (WBC) Count 9.8 thou/uL (4.8-10.8)
[2020-01-14 05:13] LABS: INR-International Normal Ratio 2.3; Prothrombin Time 26.2 sec (12.0-14.7)
[2020-01-14 05:28] LABS: Anion Gap 11 mmol/L (10-20); BUN (Urea Nitrogen) 17 mg/dL (8.4-25.7); Calc. Creatinine Clearance 48 mL/min (70-130); Calcium 8.8 mg/dL (7.8-10.44); Carbon Dioxide 30 mmol/L (23-31); Chloride 97 mmol/L (98-107); Estimated GFR-MDRD 49; Glucose 149 mg/dL (83-110); Potassium 3.2 mmol/L (3.5-5.1); Sodium 135 mmol/L (136-145)
[2020-01-14] MEDS ORDERED: FLU VACC QS2020-21(65YR UP)/PF 240 MCG/0.7 ML SYRINGE IM ONE (09:00)
[2020-01-14] MEDS ORDERED: Potassium Citrate 10 MEQ TAB PO SCH (09:00)
[2020-01-14] MEDS ORDERED: Nitroglycerin 0.4 MG TAB (25 Tab Bottle) SL SCH (10:45)
[2020-01-14] MEDS ORDERED: HALOPERIDOL 2 MG PO PRN (10:45)
--- NOTE | 2020-01-14 12:12 | PDOC.HOSPP ---
- Subjective Encounter Date: 01/14/20 Encounter Time: 10:40 Subjective: Patient's at bedside. He is having some wheezing. Covid test is pending. His sats are 99% with 2 L oxygen. His blood pressure is little elevated. Discussed with RN. Will put him back on his home medications. - Objective Vital Signs & Weight: Vital Signs (12 hours) Temp Pulse Resp BP BP Pulse Ox 01/14/20 11:08 63 20 95 01/14/20 10:58 98.9 F 64 139/69 99 01/14/20 08:50 72 173/77 H 97 01/14/20 07:36 74 20 160/75 H 97 01/14/20 03:56 99.4 F 73 19 151/73 H 96 01/14/20 00:57 96 01/14/20 00:42 99.3 F 63 20 179/76 H 96 01/14/20 00:30 65 172/80 H Weight Weight 187 lb 1.6 oz I&O: 01/13/20 01/14/20 01/15/20 06:59 06:59 06:59 Intake Total 240 Balance 240 Result Diagrams: 01/14/20 04:56 01/14/20 04:56 Hospitalist ROS - Medication Medications: Active Medications Generic Name Dose Route Start Last Admin Trade Name Freq PRN Reason Stop Dose Admin Hydralazine HCl 25 mg 01/14/20 00:04 01/14/20 08:50 Hydralazine 25 Mg Tab PO 25 mg QID PRN Administration Hypertension Sodium Chloride 1,000 mls @ 75 mls/hr 01/14/20 00:15 01/14/20 00:30 Normal Saline 0.9% IV 1,000 mls .[id number] JOSSUE Administration - Exam General Appearance: NAD, awake alert Eye: PERRL ENT: normocephalic atraumatic Neck: supple Heart: RRR Heart - other findings: Some congestion Respiratory: no rales, no ronchi, normal chest expansion, wheezes Gastrointestinal: soft, normal bowel sounds Neurological: no focal deficits Psychiatric: A&O x 3 Hosp A/P - Plan Generalized weakness and not able to ambulate. Metabolic encephalopathy Hypertension History of atrial fibrillation on Coumadin Hyperlipidemia Dementia -CT head did not show any acute abnormalities. -Daily INR. -Breathing treatments and will check his inflammatory markers.--------------> his CRP did come back with a 6.42, even though his D-dimer is 0.3--his chest x- ray did not show any active disease -Pending Covid test result. -We will check his BNP as well as 2D echo as it appears he has some diastolic dysfunction he does not appear volume overloaded at this point. -With his wheezing we will start him on breathing treatments as well as low-dose steroid. Please check his Covid test and if it is positive need to switch him to Decadron. Hypokalemia being replaced. PT consult placed
[2020-01-14] MEDS: Metoprolol Tartrate 5 MG/5 ML VIAL IVP PRN (17:52)
[2020-01-14 18:29] LABS: SARS-CoV-2 MS2 Positive; SARS-CoV-2 N Gene Negative; SARS-CoV-2 S Gene Negative; SARS-CoV-2 by NAA Not Detected (NotDetected); SARS-CoV-2 orf1ab Negative
[2020-01-14] MEDS ORDERED: Tolterodine Tartrate LA 4 MG CAP PO SCH (21:00)
[2020-01-14] MEDS: Atorvastatin Calcium 20 MG TAB PO SCH (21:24)
[2020-01-14] MEDS: Carvedilol 6.25 MG TAB PO SCH (21:24)
[2020-01-14] MEDS: Trospium 20 MG TAB PO SCH (21:42)
[2020-01-14] MEDS ORDERED: Donepezil HCl 5 MG TAB PO SCH (22:00)
[2020-01-14] MEDS: Haloperidol 1 MG TAB PO PRN (22:22)
[2020-01-15 06:05] LABS: Prothrombin Time 23.1 sec (12.0-14.7)
[2020-01-15 06:20] LABS: Anion Gap 11 mmol/L (10-20); BUN (Urea Nitrogen) 18 mg/dL (8.4-25.7); Calc. Creatinine Clearance 50 mL/min (70-130); Calcium 8.7 mg/dL (7.8-10.44); Carbon Dioxide 29 mmol/L (23-31); Chloride 99 mmol/L (98-107); Estimated GFR-MDRD 50; Glucose 131 mg/dL (83-110); Sodium 135 mmol/L (136-145)
[2020-01-15] MEDS ORDERED: Non-Formulary Item 1 EACH (Sertraline Hcl [Zoloft] 20 MG/1 ML Ml) PO SCH (09:00)
[2020-01-15] MEDS ORDERED: Warfarin Sodium 5 MG TAB PO SCH (09:00)
[2020-01-15] MEDS: Carvedilol 6.25 MG TAB PO SCH ×2 (09:44→20:54)
[2020-01-15] MEDS: Trospium 20 MG TAB PO SCH ×2 (09:44→20:55)
[2020-01-15] MEDS: methylPREDNISolone Sod Succ 40 MG VIAL IVP SCH (09:44)
[2020-01-15] MEDS: Oxybutynin 5 MG TAB PO SCH (09:45)
--- NOTE | 2020-01-15 12:20 | PDOC.HOSPP ---
- Subjective Encounter Date: 01/15/20 Encounter Time: 12:08 Subjective: sudden inability to walk or stand - Objective Vital Signs & Weight: Vital Signs (12 hours) Temp Pulse Resp BP BP Pulse Ox 01/15/20 11:35 98.4 F 67 16 149/72 H 92 L 01/15/20 11:09 98.4 F 64 16 149/72 H 93 L 01/15/20 09:44 128/62 01/15/20 07:41 98.1 F 64 18 150/79 H 96 01/15/20 03:29 98.2 F 77 16 135/66 96 Weight Weight 187 lb 1.6 oz I&O: 01/14/20 01/15/20 01/16/20 06:59 06:59 06:59 Intake Total 1580 1380 Balance 1580 1380 Result Diagrams: 01/14/20 04:56 01/15/20 05:35 Hospitalist ROS - Medication Medications: Active Medications Generic Name Dose Route Start Last Admin Trade Name Freq PRN Reason Stop Dose Admin Atorvastatin Calcium 20 mg 01/14/20 21:00 01/14/20 21:24 Atorvastatin Calcium 20 Mg Tab PO 20 mg HS JOSSUE Administration Carvedilol 6.25 mg 01/14/20 21:00 01/15/20 09:44 Carvedilol 6.25 Mg Tab PO 6.25 mg BID JOSSUE Administration Haloperidol 1 mg 01/14/20 10:55 01/14/20 22:22 Haloperidol 1 Mg Tab PO 1 mg HSPRN PRN Administration ANXIETY Hydralazine HCl 25 mg 01/14/20 00:04 01/14/20 15:35 Hydralazine 25 Mg Tab PO 25 mg QID PRN Administration Hypertension Sodium Chloride 1,000 mls @ 75 mls/hr 01/14/20 00:15 01/14/20 21:32 Normal Saline 0.9% IV 1,000 mls .[id number] JOSSUE Administration Methylprednisolone Sodium Succinate 40 mg 01/15/20 09:00 01/15/20 09:44 Methylprednisolone Sod Succ 40 Mg Vial IVP 40 mg DAILY JOSSUE Administration Metoprolol Tartrate 5 mg 01/14/20 08:54 01/14/20 17:52 Metoprolol Tartrate 5 Mg/5 Ml Vial IVP 5 mg Q4H PRN Administration for HR > 90 or SBP>150 Oxybutynin Chloride 10 mg 01/15/20 09:00 01/15/20 09:45 Oxybutynin 5 Mg Tab PO 10 mg DAILY JOSSUE Administration Sertraline HCl 100 mg 01/15/20 09:00 01/15/20 09:47 Sertraline Hcl 100 Mg Tab PO 100 mg DAILY JOSSUE Administration Sodium Chloride 10 ml 01/14/20 21:00 01/15/20 09:57 Flush - Normal Saline 10 Ml Syringe IVF 10 ml Q12HR JOSSUE Administration Trospium 20 mg 01/14/20 21:00 01/15/20 09:44 Trospium 20 Mg Tab PO 20 mg BID JOSSUE Administration Warfarin Sodium 5 mg 01/15/20 09:00 01/15/20 09:44 Warfarin Sodium 5 Mg Tab PO 5 mg DAILY JOSSUE Administration - Exam General Appearance: awake alert Neck: no JVD Heart: RRR, no murmur Respiratory: CTAB, no wheezes Gastrointestinal: soft, non-distended, no hepatomegaly Extremities: 1+ LE edema Neurological - other findings: hands, below knees. DTTs leg decreased Hosp A/P (1) Leg weakness, bilateral Code(s): R29.898 - OT SYMPTOMS AND SIGNS INVOLVING THE MUSCULOSKELETAL SYSTEM Status: Acute (2) Dementia Code(s): F03.90 - UNSPECIFIED DEMENTIA WITHOUT BEHAVIORAL DISTURBANCE Status: Acute Qualifiers: Dementia type: unspecified type Dementia behavioral disturbance: without behavioral disturbance Qualified Code(s): F03.90 - Unspecified dementia without behavioral disturbance (3) CAD (coronary artery disease) Code(s): I25.10 - ATHSCL HEART DISEASE OF [place] CORONARY ARTERY W/O ANG PCTRS Status: Acute Qualifiers: Coronary Disease-Associated Artery/Lesion type: [place] artery [place] vs. transplanted heart: [place] heart Associated angina: without angina Qualified Code(s): I25.10 - Atherosclerotic heart disease of [place] coronary artery without angina pectoris (4) HTN (hypertension) Code(s): I10 - ESSENTIAL (PRIMARY) HYPERTENSION Status: Acute Qualifiers: Hypertension type: essential hypertension Qualified Code(s): I10 - Essential (primary) hypertension (5) Atrial fibrillation Code(s): I48.91 - UNSPECIFIED ATRIAL FIBRILLATION Status: Acute Qualifiers: Atrial fibrillation type: permanent Qualified Code(s): I48.21 - Permanent atrial fibrillation - Plan [facility]ER[facility] CPOVID, FLU neg concern for Guillian [place] consult neurology
--- NOTE | 2020-01-15 14:00 | CON ---
NEUROLOGY CONSULTATION DATE OF CONSULTATION: 01/15/2020 REASON FOR CONSULTATION: Bilateral lower extremity weakness and numbness. HISTORY OF PRESENT ILLNESS: Mr. Shane Jamil is an 85-year-old male with history significant for hypertension, dementia, hyperlidemia, was called by the because he was unable to walk on Wednesday. Per , she took him to the restroom and on coming back, he was unable to take any steps and his legs feel heavy and he was unable to stand. She called the EMS. When the EMS arrived, he was found to be hypoxic. The denies any focal weakness, focal paresthesias, nausea, vomiting, headache, chest pain, or abdominal pain. The patient has baseline dementia and needs help with his activities of daily living. However, he is able to walk with the help of the . The denies any recent illness, recent sick contacts, diarrhea, respiratory illness, or exposure to COVID. The also denies urinary incontinence or urinary retention. REVIEW OF SYSTEMS: Per , all systems reviewed and were negative except the pertinent positives and negatives mentioned in the HPI. ALLERGIES: SULFA, MARIA T INHIBITORS, TRIMETHOPRIM. MEDICATIONS: 1. Solu-Medrol. 2. Warfarin. 3. Sertraline. 4. Haldol. 5. DuoNeb. 6. Carvedilol. 7. Metoprolol tartrate. 8. Hydralazine. 9. Oxybutynin chloride. 10. Trospium. 11. Lipitor. 12. Nitrostat. 13. Donepezil. PAST MEDICAL HISTORY: Dementia and hypertension. PAST SURGICAL HISTORY: No significant past surgical history. FAMILY HISTORY: No significant family history. Objective Vital Signs & Weight: Vital Signs (12 hours) Temp Pulse Resp BP BP Pulse Ox 01/15/20 11:35 98.4 F 67 16 149/72 H 92 L 01/15/20 11:09 98.4 F 64 16 149/72 H 93 L 01/15/20 09:44 128/62 01/15/20 07:41 98.1 F 64 18 150/79 H 96 01/15/20 03:29 98.2 F 77 16 135/66 96 Weight Weight 187 lb 1.6 oz I&O: 01/14/20 01/15/20 01/16/20 06:59 06:59 06:59 Intake Total 1580 1380 Balance 1580 1380 Active Medications Generic Name Dose Route Start Last Admin Trade Name Freq PRN Reason Stop Dose Admin Atorvastatin Calcium 20 mg 01/14/20 21:00 01/14/20 21:24 Atorvastatin Calcium 20 Mg Tab PO 20 mg HS JOSSUE Administration Carvedilol 6.25 mg 01/14/20 21:00 01/15/20 09:44 Carvedilol 6.25 Mg Tab PO 6.25 mg BID JOSSUE Administration Haloperidol 1 mg 01/14/20 10:55 01/14/20 22:22 Haloperidol 1 Mg Tab PO 1 mg HSPRN PRN Administration ANXIETY Hydralazine HCl 25 mg 01/14/20 00:04 01/14/20 15:35 Hydralazine 25 Mg Tab PO 25 mg QID PRN Administration Hypertension Sodium Chloride 1,000 mls @ 75 mls/hr 01/14/20 00:15 01/14/20 21:32 Normal Saline 0.9% IV 1,000 mls .[id number] JOSSUE Administration Methylprednisolone Sodium Succinate 40 mg 01/15/20 09:00 01/15/20 09:44 Methylprednisolone Sod Succ 40 Mg Vial IVP 40 mg DAILY JOSSUE Administration Metoprolol Tartrate 5 mg 01/14/20 08:54 01/14/20 17:52 Metoprolol Tartrate 5 Mg/5 Ml Vial IVP 5 mg Q4H PRN Administration for HR > 90 or SBP>150 Oxybutynin Chloride 10 mg 01/15/20 09:00 01/15/20 09:45 Oxybutynin 5 Mg Tab PO 10 mg DAILY JOSSUE Administration Sertraline HCl 100 mg 01/15/20 09:00 01/15/20 09:47 Sertraline Hcl 100 Mg Tab PO 100 mg DAILY JOSSUE Administration Sodium Chloride 10 ml 01/14/20 21:00 01/15/20 09:57 Flush - Normal Saline 10 Ml Syringe IVF 10 ml Q12HR JOSSUE Administration Trospium 20 mg 01/14/20 21:00 01/15/20 09:44 Trospium 20 Mg Tab PO 20 mg BID JOSSUE Administration Warfarin Sodium 5 mg 01/15/20 09:00 01/15/20 09:44 Warfarin Sodium 5 Mg Tab PO 5 mg DAILY JOSSUE Administration - Physical Exam General Appearance: awake alert Neck: no JVD Heart: RRR, no murmur Respiratory: CTAB, no wheezes Gastrointestinal: soft, non-distended, no hepatomegaly Extremities: 1+ LE edema Neurological Mental status, the patient is alert and awake. He is baseline confused, but is able to tell his name. Follows commands intermittently. Cranial nerves 2 through 12 are intact. Motor, muscle tone and bulk are normal. Tremor in upper extremities, left greater than right. Moving upper extremities equally and symmetrically. Minimal movements of the bilateral lower extremities, Reflexes diminished. No sensation to light touch in the lower extremities up to the knees and also on the hands bilaterally. Cerebellar, did not cooperate with the testing. Gait deferred due to the patient's safety reason. Sensory, withdraws both upper extremities to nailbed pressure. No response in the lower extremities. DATA REVIEWED: Labs reviewed. ASSESSMENT AND PLAN: (1) Leg weakness, bilateral Code(s): R29.898 - [facility] SYMPTOMS AND SIGNS INVOLVING THE MUSCULOSKELETAL SYSTEM Status: Acute (2) Dementia Code(s): F03.90 - UNSPECIFIED DEMENTIA WITHOUT BEHAVIORAL DISTURBANCE Status: Acute Qualifiers: Dementia type: unspecified type Dementia behavioral disturbance: without behavioral disturbance Qualified Code(s): F03.90 - Unspecified dementia without behavioral disturbance (3) CAD (coronary artery disease) Code(s): I25.10 - ATHSCL HEART DISEASE OF [place] CORONARY ARTERY W/O ANG PCTRS Status: Acute Qualifiers: Coronary Disease-Associated Artery/Lesion type: [place] artery [place] vs. transplanted heart: [place] heart Associated angina: without angina Qualified Code(s): I25.10 - Atherosclerotic heart disease of [place] coronary artery without angina pectoris (4) HTN (hypertension) Code(s): I10 - ESSENTIAL (PRIMARY) HYPERTENSION Status: Acute Qualifiers: Hypertension type: essential hypertension Qualified Code(s): I10 - Essential (primary) hypertension (5) Atrial fibrillation Code(s): I48.91 - UNSPECIFIED ATRIAL FIBRILLATION Status: Acute Qualifiers: Atrial fibrillation type: permanent Qualified Code(s): I48.21 - Permanent atrial fibrillation Mr. Shane Jamil is an 85-year-old male with history significant for dementia, atrial fibrillation, hypertension, coronary artery disease, presented with bilateral lower extremity weakness with numbness, which is acute onset. 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 Consider lumbar puncture to assess for albumino-cytogenic dissociation. Check IgA level and if negative, start IVIG 0.4 g/kg per day for 3 days. Check negative inspiratory pressure every 6 hours for the first 24 hours. The patient denies any breathing issues at this time. Neuro checks every 4 hours. Continue home medications. Continue medical management per primary team, PT/OT/Speech. We will continue to follow. Plan discussed in detail with the patient's at bedside and also with the primary attending, Dr. Pearson. Thank you for the consult. Job ID: [id number] [facility]
[2020-01-15] MEDS: Sodium Chloride 0.9% 1,000 ML IV SCH (17:29)
[2020-01-15] MEDS: Atorvastatin Calcium 20 MG TAB PO SCH (20:55)
[2020-01-15] MEDS: Donepezil HCl 5 MG TAB PO SCH (20:55)
[2020-01-15] MEDS: Haloperidol 1 MG TAB PO PRN (22:08)
[2020-01-16] MEDS: Sodium Chloride 0.9% 1,000 ML IV SCH ×2 (05:32→17:02)
[2020-01-16 05:40] LABS: Prothrombin Time 22.9 sec (12.0-14.7)
[2020-01-16 05:41] LABS: PTT 56.2 sec (22.9-36.1)
[2020-01-16] MEDS: Carvedilol 6.25 MG TAB PO SCH ×2 (10:29→20:52)
[2020-01-16] MEDS: methylPREDNISolone Sod Succ 40 MG VIAL IVP SCH (10:29)
[2020-01-16] MEDS: Oxybutynin 5 MG TAB PO SCH (10:30)
[2020-01-16] MEDS: Trospium 20 MG TAB PO SCH ×2 (10:31→20:52)
[2020-01-16] MEDS: Warfarin Sodium 5 MG TAB PO SCH (10:32)
--- NOTE | 2020-01-16 11:32 | PDOC.HOSPP ---
- Subjective Encounter Date: 01/16/20 Encounter Time: 11:25 Subjective: alert. calm. mental status stable - Objective Vital Signs & Weight: Vital Signs (12 hours) Temp Pulse Resp BP Pulse Ox 01/16/20 11:02 98.5 F 56 L 16 144/66 H 98 01/16/20 07:22 98.0 F 60 16 154/75 H 97 01/16/20 03:42 97.7 F 66 18 153/75 H 97 01/15/20 23:42 98.9 F 71 16 160/73 H 98 Weight Weight 187 lb 1.6 oz I&O: 01/15/20 01/16/20 01/17/20 06:59 06:59 06:59 Intake Total 1580 3260 Balance 1580 3260 Result Diagrams: 01/14/20 04:56 01/15/20 05:35 Additional Labs: Accuchecks 01/16/20 11:06 POC Glucose 156 H Hospitalist ROS - Medication Medications: Active Medications Generic Name Dose Route Start Last Admin Trade Name Freq PRN Reason Stop Dose Admin Atorvastatin Calcium 20 mg 01/14/20 21:00 01/15/20 20:55 Atorvastatin Calcium 20 Mg Tab PO 20 mg HS JOSSUE Administration Carvedilol 6.25 mg 01/14/20 21:00 01/16/20 10:29 Carvedilol 6.25 Mg Tab PO 6.25 mg BID JOSSUE Administration Donepezil HCl 5 mg 01/15/20 21:00 01/15/20 20:55 Donepezil Hcl 5 Mg Tab PO 5 mg HS JOSSUE Administration Haloperidol 1 mg 01/14/20 10:55 01/15/20 22:08 Haloperidol 1 Mg Tab PO 1 mg HSPRN PRN Administration ANXIETY Hydralazine HCl 25 mg 01/14/20 00:04 01/14/20 15:35 Hydralazine 25 Mg Tab PO 25 mg QID PRN Administration Hypertension Sodium Chloride 1,000 mls @ 75 mls/hr 01/14/20 00:15 01/16/20 05:32 Normal Saline 0.9% IV Not Given .[id number] JOSSUE Methylprednisolone Sodium Succinate 40 mg 01/15/20 09:00 01/16/20 10:29 Methylprednisolone Sod Succ 40 Mg Vial IVP 40 mg DAILY JOSSUE Administration Metoprolol Tartrate 5 mg 01/14/20 08:54 01/14/20 17:52 Metoprolol Tartrate 5 Mg/5 Ml Vial IVP 5 mg Q4H PRN Administration for HR > 90 or SBP>150 Oxybutynin Chloride 10 mg 01/15/20 09:00 01/16/20 10:30 Oxybutynin 5 Mg Tab PO 10 mg DAILY JOSSUE Administration Sertraline HCl 100 mg 01/15/20 09:00 01/16/20 10:30 Sertraline Hcl 100 Mg Tab PO 100 mg DAILY JOSSUE Administration Sodium Chloride 10 ml 01/14/20 21:00 01/16/20 10:30 Flush - Normal Saline 10 Ml Syringe IVF 10 ml Q12HR JOSSUE Administration Trospium 20 mg 01/14/20 21:00 01/16/20 10:31 Trospium 20 Mg Tab PO 20 mg BID JOSSUE Administration Warfarin Sodium 5 mg 01/16/20 09:00 01/16/20 10:32 Warfarin Sodium 5 Mg Tab PO 5 mg DAILY JOSSUE Administration - Exam General Appearance: awake alert Neck: no JVD Heart: RRR, no murmur Respiratory: CTAB, no wheezes Gastrointestinal: soft, normal bowel sounds Extremities: 1+ LE edema Hosp A/P (1) Leg weakness, bilateral Code(s): R29.898 - OT SYMPTOMS AND SIGNS INVOLVING THE MUSCULOSKELETAL SYSTEM Status: Acute (2) Dementia Code(s): F03.90 - UNSPECIFIED DEMENTIA WITHOUT BEHAVIORAL DISTURBANCE Status: Acute Qualifiers: Dementia type: unspecified type Dementia behavioral disturbance: without behavioral disturbance Qualified Code(s): F03.90 - Unspecified dementia without behavioral disturbance (3) CAD (coronary artery disease) Code(s): I25.10 - ATHSCL HEART DISEASE OF [place] CORONARY ARTERY W/O ANG PCTRS Status: Acute Qualifiers: Coronary Disease-Associated Artery/Lesion type: [place] artery [place] vs. transplanted heart: [place] heart Associated angina: without angina Qualified Code(s): I25.10 - Atherosclerotic heart disease of [place] coronary artery without angina pectoris (4) HTN (hypertension) Code(s): I10 - ESSENTIAL (PRIMARY) HYPERTENSION Status: Acute Qualifiers: Hypertension type: essential hypertension Qualified Code(s): I10 - Essential (primary) hypertension (5) Atrial fibrillation Code(s): I48.91 - UNSPECIFIED ATRIAL FIBRILLATION Status: Acute Qualifiers: Atrial fibrillation type: permanent Qualified Code(s): I48.21 - Permanent atrial fibrillation - Plan IgA infusion for guillian barre in progress holding coumadin LP for Dx when INR adequate PT daily
[2020-01-16] MEDS: OCTAGAM 10% 20 GM, OCTAGAM 10% 5 GM in Admixture Fee 1 EACH IVPB SCH (12:13)
--- NOTE | 2020-01-16 17:14 | PDOC.NEUPN ---
- Subjective Encounter Date: 01/16/20 Subjective: Patient alert and awake and no reported complaints in the last 24 hours. - Objective Vital Signs & Weight: Vital Signs (12 hours) Temp Pulse Resp BP Pulse Ox 01/16/20 14:50 98.8 F 67 16 149/55 H 92 L 01/16/20 11:02 98.5 F 56 L 16 144/66 H 98 01/16/20 07:22 98.0 F 60 16 154/75 H 97 Weight Weight 187 lb 1.6 oz I&O: 01/15/20 01/16/20 01/17/20 06:59 06:59 06:59 Intake Total 1580 3260 Balance 1580 3260 Result Diagrams: 01/14/20 04:56 01/15/20 05:35 Additional Labs: Accuchecks 01/16/20 11:06 POC Glucose 156 H Radiology Reviewed by me: Yes EKG Reviewed by me: Yes ROS - Review of Systems ROS unobtainable: due to mental status (dementia) - Medication Medications: Active Medications Generic Name Dose Route Start Last Admin Trade Name Freq PRN Reason Stop Dose Admin Atorvastatin Calcium 20 mg 01/14/20 21:00 01/15/20 20:55 Atorvastatin Calcium 20 Mg Tab PO 20 mg HS JOSSUE Administration Carvedilol 6.25 mg 01/14/20 21:00 01/16/20 10:29 Carvedilol 6.25 Mg Tab PO 6.25 mg BID JOSSUE Administration Donepezil HCl 5 mg 01/15/20 21:00 01/15/20 20:55 Donepezil Hcl 5 Mg Tab PO 5 mg HS JOSSUE Administration Haloperidol 1 mg 01/14/20 10:55 01/15/20 22:08 Haloperidol 1 Mg Tab PO 1 mg HSPRN PRN Administration ANXIETY Hydralazine HCl 25 mg 01/14/20 00:04 01/14/20 15:35 Hydralazine 25 Mg Tab PO 25 mg QID PRN Administration Hypertension Sodium Chloride 1,000 mls @ 75 mls/hr 01/14/20 00:15 01/16/20 17:02 Normal Saline 0.9% IV Not Given .[id number] JOSSUE Immune Globulin 20 gm/ Immune 250 mls @ 0 mls/hr 01/16/20 11:00 01/16/20 12:13 Globulin 5 gm/ Miscellaneous IVPB 01/18/20 11:01 250 mls Medication 1100 JOSSUE Administration As Directed Methylprednisolone Sodium Succinate 40 mg 01/15/20 09:00 01/16/20 10:29 Methylprednisolone Sod Succ 40 Mg Vial IVP 40 mg DAILY JOSSUE Administration Metoprolol Tartrate 5 mg 01/14/20 08:54 01/14/20 17:52 Metoprolol Tartrate 5 Mg/5 Ml Vial IVP 5 mg Q4H PRN Administration for HR > 90 or SBP>150 Oxybutynin Chloride 10 mg 01/15/20 09:00 01/16/20 10:30 Oxybutynin 5 Mg Tab PO 10 mg DAILY JOSSUE Administration Sertraline HCl 100 mg 01/15/20 09:00 01/16/20 10:30 Sertraline Hcl 100 Mg Tab PO 100 mg DAILY JOSSUE Administration Sodium Chloride 10 ml 01/14/20 21:00 01/16/20 10:30 Flush - Normal Saline 10 Ml Syringe IVF 10 ml Q12HR JOSSUE Administration Trospium 20 mg 01/14/20 21:00 01/16/20 10:31 Trospium 20 Mg Tab PO 20 mg BID JOSSUE Administration Warfarin Sodium 5 mg 01/16/20 09:00 01/16/20 10:32 Warfarin Sodium 5 Mg Tab PO 5 mg DAILY JOSSUE Administration - Exam General Appearance: awake alert Eye: PERRL ENT: normocephalic atraumatic Neck: supple Respiratory: CTAB Cardiovascular: RRR Gastrointestinal: soft Extremities: no cyanosis Skin: normal turgor Neurological: CN's grossly intact, no new deficit Musculoskeletal: normal tone, no muscle wasting PSYCH: normal affect, normal behavior, oriented to person Results - Labs Result Diagrams: 01/14/20 04:56 01/15/20 05:35 Lab results: WBC 9.8 thou/uL (4.8-10.8) 01/14/20 04:56 Hgb 13.2 g/dL (14.0-18.0) L 01/14/20 04:56 Hct 38.1 % (42.0-52.0) L 01/14/20 04:56 MCV 99.2 fL (78.0-98.0) H 01/14/20 04:56 Plt Count 119 thou/uL (130-400) L 01/14/20 04:56 Neutrophils % 70.3 % (42.0-75.0) 01/14/20 04:56 Sodium 135 mmol/L (136-145) L 01/15/20 05:35 Potassium 4.0 mmol/L (3.5-5.1) 01/15/20 05:35 Chloride 99 mmol/L (98-107) 01/15/20 05:35 Carbon Dioxide 29 mmol/L (23-31) 01/15/20 05:35 BUN 18 mg/dL (8.4-25.7) 01/15/20 05:35 Creatinine 1.35 mg/dL (0.7-1.3) H 01/15/20 05:35 Glucose 131 mg/dL (83-110) H 01/15/20 05:35 Calcium 8.7 mg/dL (7.8-10.44) 01/15/20 05:35 Total Bilirubin 0.5 mg/dL (0.2-1.2) 01/13/20 20:56 AST 16 U/L (5-34) 01/13/20 20:56 ALT 25 U/L (8-55) 01/13/20 20:56 Alkaline Phosphatase 35 U/L (40-110) L 01/13/20 20:56 Troponin I 0.011 ng/mL (< 0.028) 01/13/20 20:56 C-Reactive Protein 6.42 mg/dL (= or < 0.5) H 01/14/20 11:39 B-Natriuretic Peptide 161.4 pg/mL (0-100) H 01/15/20 05:35 Serum Total Protein 7.0 g/dL (5.8-8.1) 01/13/20 20:56 Albumin 4.1 g/dL (3.4-4.8) 01/13/20 20:56 Urine Ketones Negative mg/dL (Negative) 01/13/20 19:44 Urine Blood Negative (Negative) 01/13/20 19:44 Urine Nitrite Negative (Negative) 01/13/20 19:44 Ur Leukocyte Esterase Negative Jeremiah/uL (Negative) 01/13/20 19:44 Urine RBC 0-3 HPF (0-3) 01/13/20 19:44 Urine WBC 0-3 HPF (0-3) 01/13/20 19:44 Ur Squamous Epith Cells None Seen HPF (0-3) 01/13/20 19:44 Urine Bacteria None Seen HPF (None Seen) 01/13/20 19:44 - Radiology Interpretation CT scan - head Additional Comment: No acute intracranial process. 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 transplanted heart: [place] heart Associated angina: without angina Qualified Code(s): I25.10 - Atherosclerotic heart disease of [place] coronary artery without angina pectoris (4) Dementia Code(s): F03.90 - UNSPECIFIED DEMENTIA WITHOUT BEHAVIORAL DISTURBANCE Status: Acute Qualifiers: Dementia type: unspecified type Dementia behavioral disturbance: without behavioral disturbance Qualified Code(s): F03.90 - Unspecified dementia without behavioral disturbance (5) HTN (hypertension) Code(s): I10 - ESSENTIAL (PRIMARY) HYPERTENSION Status: Acute Qualifiers: Hypertension type: essential hypertension Qualified Code(s): I10 - Essential (primary) hypertension (6) Leg weakness, bilateral Code(s): R29.898 - [place] SYMPTOMS AND SIGNS INVOLVING THE MUSCULOSKELETAL SYSTEM Status: Acute - Plan Daily Plan: plan discussed w/ family, PT/OT, speech therapy, DVT proph w/SCDs 85 year old male with history significant for dementia presented with bilateral weakness. Examination should sensory deficits in BLE up to knees with diminished reflexes. Concern for GBS. LP to look for albuminocytogenic dissociation will be performed once INR is adequate. Check PT/INR daily. Neurochecks every 4 hours. Monitor respiratory status . NIF every 6 hours. Continue to hold coumadin. Coumadin is for atrial fibrillation. Discussed with Dr. Pearson and he is aware and will bridge with Lovenox if needed. Continue IVIG 0.4 G/Kg daily for 3 day. Today is day 1. Continue home medications. Strict control of BP and BG. PT/OT/Speech. Continue medical management per primary team. Plan discussed in detail with the patient's , nursing staff and also the primary attending Dr. Pearson.
--- NOTE | 2020-01-16 18:04 | PQF ---
CLINICAL DOCUMENTATION CLARIFICATION FORM: Dear Dr.COUNCIL WHITE Date: 01-16-20 Please exercise your independent, professional judgment in responding to the clarification form. Clinical indicators are provided on the bottom of this form for your review. Please check appropriate box(es): [ ] Acute Renal Failure (ARF) / Acute Kidney Injury (LUL) [ ] Insignificant Lab Values [ x ] Other diagnosis __CKD 3 [ ] Unable to determine In addition, please specify: Present on Admission (POA): [ ] Yes [ ] No [ ] Unable to determine For continuity of documentation, please document condition throughout progress notes and discharge summary. Thank You. To be completed by CDI/Coding staff for physician review: CLINICAL INDICATORS - SIGNS / SYMPTOMS / LABS / RESULTS AND LOCATION IN MR: GFR: 01-13-20: 45 01-14-20: 49 01-15-20: 50 CREATININE: 01-13-20: 1.48 01-14-20: 1.39 01-15-20: 1.35 BUN: 01-13-20: 18 01-14-20: 17 01-15-20: 18 H&P: 01-13-20: RENAL SYSTEM AND ELECTROLYTES: THE PATIENT IS SLIGHTLY DEHYDRATED, WILL HOLD HIS DIURETICS AND WE WILL HAVE HIM ON IV FLUIDS. RISK FACTORS / RESULTS AND LOCATION IN MR: ER NOTES 01-13-20: AMLODIPINE PO, SERTRALINE PO H&P: 01-13-20: THE PATIENT IS SLIGHTLY DEHYDRATED TREATMENTS / RESULTS AND LOCATION IN MR: H&P: 01-13-20: RENAL SYSTEM AND ELECTROLYTES: THE PATIENT IS SLIGHTLY DEHYDRATED, WILL HOLD HIS DIURETICS AND WE WILL HAVE HIM ON IV FLUIDS. National Kid[employer] Guidelines for CKD Staging Stage I Kidney damage with normal or increased GFR GFR > 90 Stage II Kidney damage with mildly decreased GFR GFR 60-89 Stage III Kidney damage with moderately decreased GFR GFR 30-59 Stage IV Kidney damage with severely decreased GFR GFR 16-29 Stage V Kidney failure GFR<15 ESRD End Stage Renal Disease On dialysis Acute Renal Failure/Acute Kidney Failure defined as: Increases in SCr by (>) 0.3 mg/dl within 48 hours OR- Increases in SCr by (>) 1.5 times baseline, known or presumed to have occurred within the prior 7 days OR- Urine volume < 0.5 ml/kg/hour for 6 hours (KDIGO supplement 2012 for RIFLE/ALEX criteria) CDS Signature: Geethachet Miles Phone #: [phone] Date: 01-16-20 This is a permanent part of the Medical Record [facility]
[2020-01-16] MEDS: Haloperidol 1 MG TAB PO PRN (20:52)
[2020-01-16] MEDS: Donepezil HCl 5 MG TAB PO SCH (20:52)
[2020-01-16] MEDS: Atorvastatin Calcium 20 MG TAB PO SCH (20:52)
[2020-01-17] MEDS: hydrALAZINE 25 MG TAB PO PRN ×2 (00:27→20:21)
[2020-01-17] MEDS: Metoprolol Tartrate 5 MG/5 ML VIAL IVP PRN ×2 (04:04→23:34)
[2020-01-17 06:28] LABS: INR-International Normal Ratio 1.9; PTT 40.5 sec (22.9-36.1); Prothrombin Time 22.4 sec (12.0-14.7)
[2020-01-17] MEDS: methylPREDNISolone Sod Succ 40 MG VIAL IVP SCH (07:45)
--- NOTE | 2020-01-17 08:08 | PDOC.HOSPP ---
- Subjective Encounter Date: 01/17/20 Encounter Time: 08:06 Subjective: called for SOB. nausea - Objective Vital Signs & Weight: Vital Signs (12 hours) Temp Pulse Resp BP BP Pulse Ox 01/17/20 08:00 99.8 F H 76 40 H 165/97 H 95 01/17/20 07:10 100.3 F H 76 20 95 01/17/20 04:15 155/81 H 01/17/20 03:59 170/85 H 01/17/20 03:48 99.4 F 73 18 180/72 H 96 01/17/20 02:33 162/52 H 01/17/20 00:27 77 192/89 H 01/16/20 23:51 99.1 F 77 18 97 01/16/20 21:42 73 20 176/96 H 96 01/16/20 21:16 67 16 97 01/16/20 21:02 96 01/16/20 20:52 165/78 H 92 L 01/16/20 20:32 99.1 F 66 18 165/78 H 92 L Weight Weight 187 lb 1.6 oz I&O: 01/16/20 01/17/20 01/18/20 06:59 06:59 06:59 Intake Total 3260 1979 Balance 3260 1979 Result Diagrams: 01/14/20 04:56 01/15/20 05:35 Additional Labs: Accuchecks 01/16/20 11:06 POC Glucose 156 H Hospitalist ROS - Medication Medications: Active Medications Generic Name Dose Route Start Last Admin Trade Name Freq PRN Reason Stop Dose Admin Albuterol/Ipratropium 3 ml 01/14/20 10:26 01/16/20 21:16 Ipratropium/Albuterol Sulfate 3 Ml Neb NEB 3 ml Q4H PRN Administration WHEEZING Atorvastatin Calcium 20 mg 01/14/20 21:00 01/16/20 20:52 Atorvastatin Calcium 20 Mg Tab PO 20 mg HS JOSSUE Administration Carvedilol 6.25 mg 01/14/20 21:00 01/16/20 20:52 Carvedilol 6.25 Mg Tab PO 6.25 mg BID JOSSUE Administration Donepezil HCl 5 mg 01/15/20 21:00 01/16/20 20:52 Donepezil Hcl 5 Mg Tab PO 5 mg HS JOSSUE Administration Haloperidol 1 mg 01/14/20 10:55 01/16/20 20:52 Haloperidol 1 Mg Tab PO 1 mg HSPRN PRN Administration ANXIETY Hydralazine HCl 25 mg 01/14/20 00:04 01/17/20 00:27 Hydralazine 25 Mg Tab PO 25 mg QID PRN Administration Hypertension Sodium Chloride 1,000 mls @ 75 mls/hr 01/14/20 00:15 01/16/20 17:02 Normal Saline 0.9% IV Not Given .[id number] JOSSUE Immune Globulin 20 gm/ Immune 250 mls @ 0 mls/hr 01/16/20 11:00 01/16/20 12:13 Globulin 5 gm/ Miscellaneous IVPB 01/18/20 11:01 250 mls Medication 1100 JOSSUE Administration As Directed Methylprednisolone Sodium Succinate 40 mg 01/15/20 09:00 01/16/20 10:29 Methylprednisolone Sod Succ 40 Mg Vial IVP 40 mg DAILY JOSSUE Administration Metoprolol Tartrate 5 mg 01/14/20 08:54 01/17/20 04:04 Metoprolol Tartrate 5 Mg/5 Ml Vial IVP 5 mg Q4H PRN Administration for HR > 90 or SBP>150 Oxybutynin Chloride 10 mg 01/15/20 09:00 01/16/20 10:30 Oxybutynin 5 Mg Tab PO 10 mg DAILY JOSSUE Administration Sertraline HCl 100 mg 01/15/20 09:00 01/16/20 10:30 Sertraline Hcl 100 Mg Tab PO 100 mg DAILY JOSSUE Administration Sodium Chloride 10 ml 01/14/20 21:00 01/16/20 20:52 Flush - Normal Saline 10 Ml Syringe IVF 10 ml Q12HR JOSSUE Administration Trospium 20 mg 01/14/20 21:00 01/16/20 20:52 Trospium 20 Mg Tab PO 20 mg BID JOSSUE Administration Warfarin Sodium 5 mg 01/16/20 09:00 01/16/20 10:32 Warfarin Sodium 5 Mg Tab PO 5 mg DAILY JOSSUE Administration - Exam General - other findings: anxious, trmulous, clammt Neck: no JVD Heart: no murmur, irregular Respiratory - other findings: post wheezes, decreased BS Gastrointestinal: soft, non-distended, normal bowel sounds Extremities: 1+ LE edema Hosp A/P (1) Leg weakness, bilateral Code(s): R29.898 - OTH SYMPTOMS AND SIGNS INVOLVING THE MUSCULOSKELETAL SYSTEM Status: Acute (2) Dementia Code(s): F03.90 - UNSPECIFIED DEMENTIA WITHOUT BEHAVIORAL DISTURBANCE Status: Acute Qualifiers: Dementia type: unspecified type Dementia behavioral disturbance: without behavioral disturbance Qualified Code(s): F03.90 - Unspecified dementia without behavioral disturbance (3) CAD (coronary artery disease) Code(s): I25.10 - ATHSCL HEART DISEASE OF [place] CORONARY ARTERY W/O ANG PCTRS Status: Acute Qualifiers: Coronary Disease-Associated Artery/Lesion type: [place] artery [place] vs. transplanted heart: [place] heart Associated angina: without angina Qualified Code(s): I25.10 - Atherosclerotic heart disease of [place] coronary artery without angina pectoris (4) HTN (hypertension) Code(s): I10 - ESSENTIAL (PRIMARY) HYPERTENSION Status: Acute Qualifiers: Hypertension type: essential hypertension Qualified Code(s): I10 - Essential (primary) hypertension (5) Atrial fibrillation Code(s): I48.91 - UNSPECIFIED ATRIAL FIBRILLATION Status: Acute Qualifiers: Atrial fibrillation type: permanent Qualified Code(s): I48.21 - Permanent atrial fibrillation (6) Acute respiratory failure with hypoxia Code(s): J96.01 - ACUTE RESPIRATORY FAILURE WITH HYPOXIA Status: Acute - Plan STAT CXR, ABG O2 to keep sat >92Blood, urine cultures review when studies available
--- NOTE | 2020-01-17 08:14 | RAD ---
EXAM: Single view of the chest HISTORY: Shortness of breath COMPARISON: 01/13/2020 FINDINGS: Single view of the chest shows a normal sized cardiomediastinal silhouette. The patient is status post sternotomy. There are developing areas of airspace opacity in the left lung. No pleural effusion. No acute osseous abnormality. IMPRESSION: Developing left pulmonary infiltrate.
[2020-01-17 08:20] LABS: Actual Bicarbonate (HCO3a) 25.2 mEq/L (22-28); Base Excess (BEa) 0.8 mEq/L (-2.0 to +3.0); CO2 Tension 39.6 mmHg (35.0-45.0); Calcium, Ionized (arterial) 1.13 mmol/L (1.12-1.30); Carboxyhemoglobin (COHb) 0.7 gm% (0.0-3.0); Hemoglobin (Hb) 14.3 g/dL (14.0-18.0); Potassium - ABG Lab 4.13 mmol/L (3.70-5.30); pH, Arterial 7.42 (7.35-7.45)
[2020-01-17 08:22] LABS: O2 Tension (PaO2), arterial 53.4 mmHg (> 60.0)
[2020-01-17 08:25] LABS: Puncture Site RBA
[2020-01-17 08:43] LABS: #Lymphocytes 1.2 thou/uL (1.20-3.40); #Monocytes 1.8 thou/uL (0.11-0.59); #Neutrophils 13.8 thou/uL (1.40-6.50); %Basophils 0.1 % (0.0-1.0); %Eosinophils 0.2 % (0.0-10.0); %Monocytes 10.6 % (0.0-10.0); %Neutrophils 82.1 % (42.0-75.0); Hemoglobin 13.8 g/dL (14.0-18.0); Mean Corpuscular HGB CONC 32.9 g/dL (32.0-36.0); Mean Corpuscular Hemoglobin 33.1 pg (27.0-31.0); Mean Platelet Volume 9.4 fL (7.4-10.4); Platelet Count 173 thou/uL (130-400); RBC Distribution Width 11.9 % (11.5-14.5); Red Blood Cell (RBC) Count 4.17 mill/uL (4.70-6.10); White Blood Cell (WBC) Count 16.8 thou/uL (4.8-10.8)
--- NOTE | 2020-01-17 08:52 | PDOC.BPN ---
- Brief Progress Note Encounter Date: 01/17/20 Encounter Time: 08:49 CXR- L sided PNA. ABG low O2. start antibx, culteres pending
[2020-01-17 09:04] LABS: ALT (SGPT) 33 U/L (8-55); AST (SGOT) 27 U/L (5-34); Albumin 3.7 g/dL (3.4-4.8); Alkaline Phosphatase 33 U/L (40-110); Anion Gap 13 mmol/L (10-20); BUN (Urea Nitrogen) 31 mg/dL (8.4-25.7); Bilirubin, Total 0.7 mg/dL (0.2-1.2); Calc. Creatinine Clearance 56 mL/min (70-130); Calcium 9.1 mg/dL (7.8-10.44); Carbon Dioxide 27 mmol/L (23-31); Chloride 97 mmol/L (98-107); Estimated GFR-MDRD 58; Glucose 158 mg/dL (83-110); Potassium 4.3 mmol/L (3.5-5.1); Protein, Total 7.7 g/dL (5.8-8.1); Sodium 133 mmol/L (136-145)
[2020-01-17] MEDS: Oxybutynin 5 MG TAB PO SCH (09:53)
[2020-01-17] MEDS: Trospium 20 MG TAB PO SCH ×2 (09:53→20:21)
[2020-01-17] MEDS: Carvedilol 6.25 MG TAB PO SCH ×2 (09:54→20:21)
[2020-01-17] MEDS: Azithromycin 500 MG in Sodium Chloride 0.9% 250 ML 250 ML IVPB SCH (10:06)
[2020-01-17] MEDS: Cefepime 2 GM in Sodium Chloride 0.9% 100 ML IVPB SCH ×2 (10:57→23:32)
[2020-01-17] MEDS ORDERED: Gentamicin 370 MG in Sodium Chloride 0.9% 100 ML IVPB SCH (12:00)
[2020-01-17] MEDS: OCTAGAM 10% 20 GM, OCTAGAM 10% 5 GM in Admixture Fee 1 EACH IVPB SCH (12:05)
--- NOTE | 2020-01-17 14:09 | PDOC.NEUPN ---
- Subjective Encounter Date: 01/17/20 Subjective: Patient complained of SOB but no other new complaints. - Objective Vital Signs & Weight: Vital Signs (12 hours) Temp Pulse Resp BP BP Pulse Ox 01/17/20 11:02 99.8 F H 73 20 151/91 H 98 01/17/20 09:54 165/97 H 01/17/20 08:00 99.8 F H 76 40 H 165/97 H 95 01/17/20 07:10 100.3 F H 76 20 95 01/17/20 04:15 155/81 H 01/17/20 03:59 170/85 H 01/17/20 03:48 99.4 F 73 18 180/72 H 96 01/17/20 02:33 162/52 H Weight Weight 187 lb 1.6 oz I&O: 01/16/20 01/17/20 01/18/20 06:59 06:59 06:59 Intake Total 3260 1979 Balance 3260 1979 Result Diagrams: 01/17/20 08:30 01/17/20 08:30 Radiology Reviewed by me: Yes EKG Reviewed by me: Yes ROS - Review of Systems ROS unobtainable: due to mental status (dementia) - Medication Medications: Active Medications Generic Name Dose Route Start Last Admin Trade Name Freq PRN Reason Stop Dose Admin Albuterol/Ipratropium 3 ml 01/14/20 10:26 01/16/20 21:16 Ipratropium/Albuterol Sulfate 3 Ml Neb NEB 3 ml Q4H PRN Administration WHEEZING Albuterol/Ipratropium 3 ml 01/17/20 13:00 01/17/20 12:14 Ipratropium/Albuterol Sulfate 3 Ml Neb NEB 3 ml [id number] JOSSUE Administration Atorvastatin Calcium 20 mg 01/14/20 21:00 01/16/20 20:52 Atorvastatin Calcium 20 Mg Tab PO 20 mg HS JOSSUE Administration Carvedilol 6.25 mg 01/14/20 21:00 01/17/20 09:54 Carvedilol 6.25 Mg Tab PO 6.25 mg BID JOSSUE Administration Donepezil HCl 5 mg 01/15/20 21:00 01/16/20 20:52 Donepezil Hcl 5 Mg Tab PO 5 mg HS JOSSUE Administration Haloperidol 1 mg 01/14/20 10:55 01/16/20 20:52 Haloperidol 1 Mg Tab PO 1 mg HSPRN PRN Administration ANXIETY Hydralazine HCl 25 mg 01/14/20 00:04 01/17/20 00:27 Hydralazine 25 Mg Tab PO 25 mg QID PRN Administration Hypertension Sodium Chloride 1,000 mls @ 75 mls/hr 01/14/20 00:15 01/16/20 17:02 Normal Saline 0.9% IV Not Given .[id number] JOSSUE Immune Globulin 20 gm/ Immune 250 mls @ 0 mls/hr 01/16/20 11:00 01/17/20 12:05 Globulin 5 gm/ Miscellaneous IVPB 01/18/20 11:01 250 mls Medication 1100 JOSSUE Administration As Directed Azithromycin 500 mg/ Sodium 250 mls @ 250 mls/hr 01/17/20 10:00 01/17/20 10:06 Chloride IVPB 250 mls Q24HR JOSSUE Administration Cefepime HCl 2 gm/ Sodium 100 mls @ 200 mls/hr 01/17/20 11:00 01/17/20 10:57 Chloride IVPB 100 mls Q12H JOSSUE Administration Methylprednisolone Sodium Succinate 40 mg 01/15/20 09:00 01/17/20 07:45 Methylprednisolone Sod Succ 40 Mg Vial IVP 40 mg DAILY JOSSUE Administration Metoprolol Tartrate 5 mg 01/14/20 08:54 01/17/20 04:04 Metoprolol Tartrate 5 Mg/5 Ml Vial IVP 5 mg Q4H PRN Administration for HR > 90 or SBP>150 Oxybutynin Chloride 10 mg 01/15/20 09:00 01/17/20 09:53 Oxybutynin 5 Mg Tab PO 10 mg DAILY JOSSUE Administration Sertraline HCl 100 mg 01/15/20 09:00 01/17/20 09:53 Sertraline Hcl 100 Mg Tab PO 100 mg DAILY JOSSUE Administration Sodium Chloride 10 ml 01/14/20 21:00 01/17/20 09:55 Flush - Normal Saline 10 Ml Syringe IVF 10 ml Q12HR JOSSUE Administration Trospium 20 mg 01/14/20 21:00 01/17/20 09:53 Trospium 20 Mg Tab PO 20 mg BID JOSSUE Administration - Exam General Appearance: awake alert Eye: PERRL ENT: normocephalic atraumatic Neck: supple Cardiovascular: RRR Gastrointestinal: soft Extremities: no cyanosis Skin: normal turgor Neurological: no new deficit Musculoskeletal: normal tone, no muscle wasting PSYCH: normal affect, normal behavior, oriented to person Results - Labs Result Diagrams: 01/17/20 08:30 01/17/20 08:30 Lab results: WBC 16.8 thou/uL (4.8-10.8) H 01/17/20 08:30 Hgb 13.8 g/dL (14.0-18.0) L 01/17/20 08:30 Hct 42.0 % (42.0-52.0) 01/17/20 08:30 MCV 101.0 fL (78.0-98.0) H 01/17/20 08:30 Plt Count 173 thou/uL (130-400) 01/17/20 08:30 Neutrophils % 82.1 % (42.0-75.0) H 01/17/20 08:30 ABG pH 7.42 (7.35-7.45) 01/17/20 08:20 ABG pCO2 39.6 mmHg (35.0-45.0) 01/17/20 08:20 ABG pO2 53.4 mmHg (> 60.0) L* 01/17/20 08:20 Sodium 133 mmol/L (136-145) L 01/17/20 08:30 Potassium 4.3 mmol/L (3.5-5.1) 01/17/20 08:30 Chloride 97 mmol/L (98-107) L 01/17/20 08:30 Carbon Dioxide 27 mmol/L (23-31) 01/17/20 08:30 BUN 31 mg/dL (8.4-25.7) H 01/17/20 08:30 Creatinine 1.19 mg/dL (0.7-1.3) 01/17/20 08:30 Glucose 158 mg/dL (83-110) H 01/17/20 08:30 Calcium 9.1 mg/dL (7.8-10.44) 01/17/20 08:30 Total Bilirubin 0.7 mg/dL (0.2-1.2) 01/17/20 08:30 AST 27 U/L (5-34) 01/17/20 08:30 ALT 33 U/L (8-55) 01/17/20 08:30 Alkaline Phosphatase 33 U/L (40-110) L 01/17/20 08:30 Troponin I 0.011 ng/mL (< 0.028) 01/13/20 20:56 C-Reactive Protein 6.42 mg/dL (= or < 0.5) H 01/14/20 11:39 B-Natriuretic Peptide 161.4 pg/mL (0-100) H 01/15/20 05:35 Serum Total Protein 7.7 g/dL (5.8-8.1) 01/17/20 08:30 Albumin 3.7 g/dL (3.4-4.8) 01/17/20 08:30 Urine Ketones Negative mg/dL (Negative) 01/13/20 19:44 Urine Blood Negative (Negative) 01/13/20 19:44 Urine Nitrite Negative (Negative) 01/13/20 19:44 Ur Leukocyte Esterase Negative Jeremiah/uL (Negative) 01/13/20 19:44 Urine RBC 0-3 HPF (0-3) 01/13/20 19:44 Urine WBC 0-3 HPF (0-3) 01/13/20 19:44 Ur Squamous Epith Cells None Seen HPF (0-3) 01/13/20 19:44 Urine Bacteria None Seen HPF (None Seen) 01/13/20 19:44 PN A/P (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 transplanted heart: [place] heart Associated angina: without angina Qualified Code(s): I25.10 - Atherosclerotic heart disease of [place] coronary artery without angina pectoris (4) Dementia Code(s): F03.90 - UNSPECIFIED DEMENTIA WITHOUT BEHAVIORAL DISTURBANCE Status: Acute Qualifiers: Dementia type: unspecified type Dementia behavioral disturbance: without behavioral disturbance Qualified Code(s): F03.90 - Unspecified dementia without behavioral disturbance (5) HTN (hypertension) Code(s): I10 - ESSENTIAL (PRIMARY) HYPERTENSION Status: Acute Qualifiers: Hypertension type: essential hypertension Qualified Code(s): I10 - Essential (primary) hypertension (6) Leg weakness, bilateral Code(s): R29.898 - [facility] SYMPTOMS AND SIGNS INVOLVING THE MUSCULOSKELETAL SYSTEM Status: Acute - Plan 85 year old male with history significant for dementia presented with bilateral weakness. Examination should sensory deficits in BLE up to knees with diminished reflexes. Concern for GBS. LP to look for albuminocytogenic dissociation will be performed once INR is adequate. Check PT/INR daily. Neurochecks every 4 hours. Monitor respiratory status . NIF every 6 hours. Continue to hold coumadin. Coumadin is for atrial fibrillation. Discussed with Dr. Pearson and he is aware and will bridge with Lovenox if needed. Continue IVIG 0.4 G/Kg daily for 3 day. Today is day 2. Continue home medications. Strict control of BP and BG. PT/OT/Speech. Continue medical management per primary team.
--- NOTE | 2020-01-17 14:13 | PDOC.NEUPN ---
- Objective Vital Signs & Weight: Vital Signs (12 hours) Temp Pulse Resp BP BP Pulse Ox 01/17/20 11:02 99.8 F H 73 20 151/91 H 98 01/17/20 09:54 165/97 H 01/17/20 08:00 99.8 F H 76 40 H 165/97 H 95 01/17/20 07:10 100.3 F H 76 20 95 01/17/20 04:15 155/81 H 01/17/20 03:59 170/85 H 01/17/20 03:48 99.4 F 73 18 180/72 H 96 01/17/20 02:33 162/52 H Weight Weight 187 lb 1.6 oz I&O: 01/16/20 01/17/20 01/18/20 06:59 06:59 06:59 Intake Total 3260 1979 Balance 3260 1979 Result Diagrams: 01/17/20 08:30 01/17/20 08:30 ROS - Medication Medications: Active Medications Generic Name Dose Route Start Last Admin Trade Name Freq PRN Reason Stop Dose Admin Albuterol/Ipratropium 3 ml 01/14/20 10:26 01/16/20 21:16 Ipratropium/Albuterol Sulfate 3 Ml Neb NEB 3 ml Q4H PRN Administration WHEEZING Albuterol/Ipratropium 3 ml 01/17/20 13:00 01/17/20 12:14 Ipratropium/Albuterol Sulfate 3 Ml Neb NEB 3 ml [id number] JOSSUE Administration Atorvastatin Calcium 20 mg 01/14/20 21:00 01/16/20 20:52 Atorvastatin Calcium 20 Mg Tab PO 20 mg HS JOSSUE Administration Carvedilol 6.25 mg 01/14/20 21:00 01/17/20 09:54 Carvedilol 6.25 Mg Tab PO 6.25 mg BID JOSSUE Administration Donepezil HCl 5 mg 01/15/20 21:00 01/16/20 20:52 Donepezil Hcl 5 Mg Tab PO 5 mg HS JOSSUE Administration Haloperidol 1 mg 01/14/20 10:55 01/16/20 20:52 Haloperidol 1 Mg Tab PO 1 mg HSPRN PRN Administration ANXIETY Hydralazine HCl 25 mg 01/14/20 00:04 01/17/20 00:27 Hydralazine 25 Mg Tab PO 25 mg QID PRN Administration Hypertension Sodium Chloride 1,000 mls @ 75 mls/hr 01/14/20 00:15 01/16/20 17:02 Normal Saline 0.9% IV Not Given .[id number] JOSSUE Immune Globulin 20 gm/ Immune 250 mls @ 0 mls/hr 01/16/20 11:00 01/17/20 12:05 Globulin 5 gm/ Miscellaneous IVPB 01/18/20 11:01 250 mls Medication 1100 JOSSUE Administration As Directed Azithromycin 500 mg/ Sodium 250 mls @ 250 mls/hr 01/17/20 10:00 01/17/20 10:06 Chloride IVPB 250 mls Q24HR JOSSUE Administration Cefepime HCl 2 gm/ Sodium 100 mls @ 200 mls/hr 01/17/20 11:00 01/17/20 10:57 Chloride IVPB 100 mls Q12H JOSSUE Administration Methylprednisolone Sodium Succinate 40 mg 01/15/20 09:00 01/17/20 07:45 Methylprednisolone Sod Succ 40 Mg Vial IVP 40 mg DAILY JOSSUE Administration Metoprolol Tartrate 5 mg 01/14/20 08:54 01/17/20 04:04 Metoprolol Tartrate 5 Mg/5 Ml Vial IVP 5 mg Q4H PRN Administration for HR > 90 or SBP>150 Oxybutynin Chloride 10 mg 01/15/20 09:00 01/17/20 09:53 Oxybutynin 5 Mg Tab PO 10 mg DAILY JOSSUE Administration Sertraline HCl 100 mg 01/15/20 09:00 01/17/20 09:53 Sertraline Hcl 100 Mg Tab PO 100 mg DAILY JOSSUE Administration Sodium Chloride 10 ml 01/14/20 21:00 01/17/20 09:55 Flush - Normal Saline 10 Ml Syringe IVF 10 ml Q12HR JOSSUE Administration Trospium 20 mg 01/14/20 21:00 01/17/20 09:53 Trospium 20 Mg Tab PO 20 mg BID JOSSUE Administration Results - Labs Result Diagrams: 01/17/20 08:30 01/17/20 08:30 Lab results: WBC 16.8 thou/uL (4.8-10.8) H 01/17/20 08:30 Hgb 13.8 g/dL (14.0-18.0) L 01/17/20 08:30 Hct 42.0 % (42.0-52.0) 01/17/20 08:30 MCV 101.0 fL (78.0-98.0) H 01/17/20 08:30 Plt Count 173 thou/uL (130-400) 01/17/20 08:30 Neutrophils % 82.1 % (42.0-75.0) H 01/17/20 08:30 ABG pH 7.42 (7.35-7.45) 01/17/20 08:20 ABG pCO2 39.6 mmHg (35.0-45.0) 01/17/20 08:20 ABG pO2 53.4 mmHg (> 60.0) L* 01/17/20 08:20 Sodium 133 mmol/L (136-145) L 01/17/20 08:30 Potassium 4.3 mmol/L (3.5-5.1) 01/17/20 08:30 Chloride 97 mmol/L (98-107) L 01/17/20 08:30 Carbon Dioxide 27 mmol/L (23-31) 01/17/20 08:30 BUN 31 mg/dL (8.4-25.7) H 01/17/20 08:30 Creatinine 1.19 mg/dL (0.7-1.3) 01/17/20 08:30 Glucose 158 mg/dL (83-110) H 01/17/20 08:30 Calcium 9.1 mg/dL (7.8-10.44) 01/17/20 08:30 Total Bilirubin 0.7 mg/dL (0.2-1.2) 01/17/20 08:30 AST 27 U/L (5-34) 01/17/20 08:30 ALT 33 U/L (8-55) 01/17/20 08:30 Alkaline Phosphatase 33 U/L (40-110) L 01/17/20 08:30 Troponin I 0.011 ng/mL (< 0.028) 01/13/20 20:56 C-Reactive Protein 6.42 mg/dL (= or < 0.5) H 01/14/20 11:39 B-Natriuretic Peptide 161.4 pg/mL (0-100) H 01/15/20 05:35 Serum Total Protein 7.7 g/dL (5.8-8.1) 01/17/20 08:30 Albumin 3.7 g/dL (3.4-4.8) 01/17/20 08:30 Urine Ketones Negative mg/dL (Negative) 01/13/20 19:44 Urine Blood Negative (Negative) 01/13/20 19:44 Urine Nitrite Negative (Negative) 01/13/20 19:44 Ur Leukocyte Esterase Negative Jeremiah/uL (Negative) 01/13/20 19:44 Urine RBC 0-3 HPF (0-3) 01/13/20 19:44 Urine WBC 0-3 HPF (0-3) 01/13/20 19:44 Ur Squamous Epith Cells None Seen HPF (0-3) 01/13/20 19:44 Urine Bacteria None Seen HPF (None Seen) 01/13/20 19:44 PN A/P (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 transplanted heart: [place] heart Associated angina: without angina Qualified Code(s): I25.10 - Atherosclerotic heart disease of [place] coronary artery without angina pectoris (4) Dementia Code(s): F03.90 - UNSPECIFIED DEMENTIA WITHOUT BEHAVIORAL DISTURBANCE Status: Acute Qualifiers: Dementia type: unspecified type Dementia behavioral disturbance: without behavioral disturbance Qualified Code(s): F03.90 - Unspecified dementia without behavioral disturbance (5) HTN (hypertension) Code(s): I10 - ESSENTIAL (PRIMARY) HYPERTENSION Status: Acute Qualifiers: Hypertension type: essential hypertension Qualified Code(s): I10 - E ssential (primary) hypertension (6) Leg weakness, bilateral Code(s): R29.898 - OTH SYMPTOMS AND SIGNS INVOLVING THE MUSCULOSKELETAL SYSTEM Status: Acute - Plan Daily Plan: PT/OT, speech therapy, incentive spirometry, DVT proph w/SCDs 85 year old male with history significant for dementia presented with bilateral weakness. Examination should sensory deficits in BLE up to knees with diminished reflexes. Concern for GBS. Complain of SOB. CXR L sided PNA. Antibiotics by primary team. LP to look for albuminocytogenic dissociation will be performed once INR is adequate. Check PT/INR daily. Neurochecks every 4 hours. Monitor respiratory status . NIF every 6 hours. Continue to hold coumadin. Coumadin is for atrial fibrillation. Discussed with Dr. Pearson and he is aware and will bridge with Lovenox if needed. Continue IVIG 0.4 G/Kg daily for 3 day. Today is day 2. Continue home medications. Strict control of BP and BG. PT/OT/Speech. Continue medical management per primary team. .
[2020-01-17] MEDS: Warfarin Sodium 5 MG TAB PO SCH (18:31)
[2020-01-17] MEDS: Sodium Chloride 0.9% 1,000 ML IV SCH ×2 (18:31→22:04)
[2020-01-17] MEDS: Atorvastatin Calcium 20 MG TAB PO SCH (20:21)
[2020-01-17] MEDS: Donepezil HCl 5 MG TAB PO SCH (20:21)
[2020-01-18] MEDS: hydrALAZINE 25 MG TAB PO PRN ×3 (05:05→21:58)
[2020-01-18] MEDS: Carvedilol 6.25 MG TAB PO SCH ×2 (09:12→21:52)
[2020-01-18] MEDS: Oxybutynin 5 MG TAB PO SCH (09:12)
[2020-01-18] MEDS: Trospium 20 MG TAB PO SCH ×2 (09:12→21:52)
[2020-01-18] MEDS: methylPREDNISolone Sod Succ 40 MG VIAL IVP SCH (09:12)
[2020-01-18] MEDS: Azithromycin 500 MG in Sodium Chloride 0.9% 250 ML 250 ML IVPB SCH (10:21)
[2020-01-18] MEDS ORDERED: Amlodipine 10 MG TAB PO SCH (11:15)
--- NOTE | 2020-01-18 11:21 | PDOC.HOSPP ---
- Subjective Encounter Date: 01/18/20 Encounter Time: 11:15 Subjective: up walking with PT. SOB, cough improved - Objective Vital Signs & Weight: Vital Signs (12 hours) Temp Pulse Resp BP BP Pulse Ox 01/18/20 10:21 69 150/87 H 01/18/20 09:12 172/98 H 01/18/20 08:00 99.4 F 81 20 172/98 H 91 L 01/18/20 07:34 81 18 94 L 01/18/20 05:10 99.1 F 01/18/20 05:05 82 180/95 H 01/18/20 03:48 100.0 F H 82 18 179/80 H 95 01/18/20 01:02 75 20 93 L 01/17/20 23:28 99.6 F 76 16 172/80 H 94 L Weight Weight 187 lb 1.6 oz I&O: 01/17/20 01/18/20 01/19/20 06:59 06:59 06:59 Intake Total 1979 290 Balance 1979 290 Result Diagrams: 01/17/20 08:30 01/17/20 08:30 Hospitalist ROS - Medication Medications: Active Medications Generic Name Dose Route Start Last Admin Trade Name Freq PRN Reason Stop Dose Admin Albuterol/Ipratropium 3 ml 01/14/20 10:26 01/16/20 21:16 Ipratropium/Albuterol Sulfate 3 Ml Neb NEB 3 ml Q4H PRN Administration WHEEZING Albuterol/Ipratropium 3 ml 01/17/20 13:00 01/18/20 07:34 Ipratropium/Albuterol Sulfate 3 Ml Neb NEB 3 ml [id number] JOSSUE Administration Atorvastatin Calcium 20 mg 01/14/20 21:00 01/17/20 20:21 Atorvastatin Calcium 20 Mg Tab PO 20 mg HS JOSSUE Administration Carvedilol 6.25 mg 01/14/20 21:00 01/18/20 09:12 Carvedilol 6.25 Mg Tab PO 6.25 mg BID JOSSUE Administration Donepezil HCl 5 mg 01/15/20 21:00 01/17/20 20:21 Donepezil Hcl 5 Mg Tab PO 5 mg HS JOSSUE Administration Haloperidol 1 mg 01/14/20 10:55 01/16/20 20:52 Haloperidol 1 Mg Tab PO 1 mg HSPRN PRN Administration ANXIETY Hydralazine HCl 25 mg 01/14/20 00:04 01/18/20 10:21 Hydralazine 25 Mg Tab PO 25 mg QID PRN Administration Hypertension Sodium Chloride 1,000 mls @ 75 mls/hr 01/14/20 00:15 01/17/20 22:04 Normal Saline 0.9% IV Not Given .[id number] JOSSUE Azithromycin 500 mg/ Sodium 250 mls @ 250 mls/hr 01/17/20 10:00 01/18/20 10:21 Chloride IVPB 250 mls Q24HR JOSSUE Administration Cefepime HCl 2 gm/ Sodium 100 mls @ 200 mls/hr 01/17/20 11:00 01/17/20 23:32 Chloride IVPB 100 mls Q12H JOSSUE Administration Methylprednisolone Sodium Succinate 40 mg 01/15/20 09:00 01/18/20 09:12 Methylprednisolone Sod Succ 40 Mg Vial IVP 40 mg DAILY JOSSUE Administration Metoprolol Tartrate 5 mg 01/14/20 08:54 01/17/20 23:34 Metoprolol Tartrate 5 Mg/5 Ml Vial IVP 5 mg Q4H PRN Administration for HR > 90 or SBP>150 Oxybutynin Chloride 10 mg 01/15/20 09:00 01/18/20 09:12 Oxybutynin 5 Mg Tab PO 10 mg DAILY JOSSUE Administration Sertraline HCl 100 mg 01/15/20 09:00 01/18/20 09:12 Sertraline Hcl 100 Mg Tab PO 100 mg DAILY JOSSUE Administration Sodium Chloride 10 ml 01/14/20 21:00 01/18/20 09:13 Flush - Normal Saline 10 Ml Syringe IVF 10 ml Q12HR JOSSUE Administration Trospium 20 mg 01/14/20 21:00 01/18/20 09:12 Trospium 20 Mg Tab PO 20 mg BID JOSSUE Administration - Exam General Appearance: awake alert Neck: no JVD Heart: irregular Respiratory - other findings: L sided post rales Gastrointestinal: soft, non-tender, normal bowel sounds Extremities: no edema Neurological - other findings: sensation now intact in legs/feet Hosp A/P (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 transplanted heart: [place] heart Associated angina: angina presence unspecified Qualified Code(s): I25.10 - Atherosclerotic heart disease of [place] coronary artery without angina pectoris (4) HTN (hypertension) Code(s): I10 - ESSENTIAL (PRIMARY) HYPERTENSION Status: Acute Qualifiers: Hypertension type: essential hypertension Qualified Code(s): I10 - Essential (primary) hypertension (5) Atrial fibrillation Code(s): I48.91 - UNSPECIFIED ATRIAL FIBRILLATION Status: Acute Qualifiers: Atrial fibrillation type: permanent Qualified Code(s): I48.21 - Permanent atrial fibrillation (6) Acute respiratory failure with hypoxia Code(s): J96.01 - ACUTE RESPIRATORY FAILURE WITH HYPOXIA Status: Acute (7) Leg weakness, bilateral Code(s): R29.898 - OTH SYMPTOMS AND SIGNS INVOLVING THE MUSCULOSKELETAL SYSTEM Status: Acute (8) PNA (pneumonia) Code(s): J18.9 - PNEUMONIA, UNSPECIFIED ORGANISM Status: Acute Qualifiers: Pneumonia type: due to Pneumococcus Laterality: left Lung location: lower lobe of lung Qualified Code(s): J13 - Pneumonia due to Streptococcus pneumoniae - Plan PNA= cont iv antibx cont nebs, 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
[2020-01-18] MEDS: Sodium Chloride 0.9% 1,000 ML IV SCH (11:35)
[2020-01-18] MEDS: OCTAGAM 10% 20 GM, OCTAGAM 10% 5 GM in Admixture Fee 1 EACH IVPB SCH (11:51)
[2020-01-18] MEDS: Cefepime 2 GM in Sodium Chloride 0.9% 100 ML IVPB SCH (12:09)
[2020-01-18] MEDS: cefTRIAXone\\ROCEPHIN 1 GM in Sodium Chloride 0.9% 100 ML IVPB SCH (13:34)
[2020-01-18] MEDS: Gentamicin 370 MG in Sodium Chloride 0.9% 100 ML IVPB SCH (15:31)
[2020-01-18] MEDS: Donepezil HCl 5 MG TAB PO SCH (21:52)
[2020-01-18] MEDS: Atorvastatin Calcium 20 MG TAB PO SCH (21:52)
[2020-01-18] MEDS: Haloperidol 1 MG TAB PO PRN (22:19)
[2020-01-19] MEDS: Sodium Chloride 0.9% 1,000 ML IV SCH ×2 (02:49→13:42)
[2020-01-19 05:17] LABS: #Monocytes 1.2 thou/uL (0.11-0.59); #Neutrophils 8.9 thou/uL (1.40-6.50); %Basophils 0.3 % (0.0-1.0); %Eosinophils 0.2 % (0.0-10.0); %Monocytes 10.8 % (0.0-10.0); %Neutrophils 79.7 % (42.0-75.0); Hemoglobin 11.6 g/dL (14.0-18.0); Mean Corpuscular HGB CONC 33.6 g/dL (32.0-36.0); Mean Corpuscular Volume 98.2 fL (78.0-98.0); Mean Platelet Volume 9.5 fL (7.4-10.4); Platelet Count 143 thou/uL (130-400); Red Blood Cell (RBC) Count 3.51 mill/uL (4.70-6.10); White Blood Cell (WBC) Count 11.1 thou/uL (4.8-10.8)
[2020-01-19 05:23] LABS: INR-International Normal Ratio 1.7; Prothrombin Time 20.1 sec (12.0-14.7)
[2020-01-19 05:40] LABS: Anion Gap 12 mmol/L (10-20); BUN (Urea Nitrogen) 33 mg/dL (8.4-25.7); Calc. Creatinine Clearance 57 mL/min (70-130); Calcium 8.5 mg/dL (7.8-10.44); Carbon Dioxide 27 mmol/L (23-31); Chloride 95 mmol/L (98-107); Estimated GFR-MDRD 59; Glucose 151 mg/dL (83-110); Potassium 3.9 mmol/L (3.5-5.1); Sodium 130 mmol/L (136-145)
[2020-01-19] MEDS: Amlodipine 5 MG TAB PO SCH (09:42)
[2020-01-19] MEDS: Losartan/Hydrochlorothiazide 100 mg/25 mg Tablet PO SCH (09:42)
[2020-01-19] MEDS: Oxybutynin 5 MG TAB PO SCH (09:43)
[2020-01-19] MEDS: Carvedilol 6.25 MG TAB PO SCH ×2 (09:43→21:06)
[2020-01-19] MEDS: methylPREDNISolone Sod Succ 40 MG VIAL IVP SCH (09:43)
[2020-01-19] MEDS: Trospium 20 MG TAB PO SCH ×2 (09:43→21:06)
[2020-01-19] MEDS: Azithromycin 500 MG in Sodium Chloride 0.9% 250 ML 250 ML IVPB SCH (10:52)
--- NOTE | 2020-01-19 11:00 | PDOC.HOSPP ---
- Subjective Encounter Date: 01/19/20 Encounter Time: 10:50 Subjective: alert, chronicaaly confused - Objective Vital Signs & Weight: Vital Signs (12 hours) Temp Pulse Resp BP BP Pulse Ox 01/19/20 09:43 162/84 H 01/19/20 09:42 74 162/84 H 01/19/20 08:16 74 16 98 01/19/20 08:11 98.1 F 63 14 162/84 H 97 01/19/20 06:51 98.6 F 77 18 178/80 H 92 L 01/19/20 00:49 79 22 H 94 L 01/19/20 00:00 97.7 F 73 14 159/81 H Weight Weight 187 lb 1.6 oz I&O: 01/18/20 01/19/20 01/20/20 06:59 06:59 06:59 Intake Total 290 360 Balance 290 360 Result Diagrams: 01/19/20 05:02 01/19/20 05:02 Hospitalist ROS - Medication Medications: Active Medications Generic Name Dose Route Start Last Admin Trade Name Freq PRN Reason Stop Dose Admin Albuterol/Ipratropium 3 ml 01/14/20 10:26 01/16/20 21:16 Ipratropium/Albuterol Sulfate 3 Ml Neb NEB 3 ml Q4H PRN Administration WHEEZING Albuterol/Ipratropium 3 ml 01/17/20 13:00 01/19/20 08:16 Ipratropium/Albuterol Sulfate 3 Ml Neb NEB 3 ml [id number] JOSSUE Administration Amlodipine Besylate 5 mg 01/19/20 09:00 01/19/20 09:42 Amlodipine 5 Mg Tab PO 5 mg DAILY JOSSUE Administration Atorvastatin Calcium 20 mg 01/14/20 21:00 01/18/20 21:52 Atorvastatin Calcium 20 Mg Tab PO 20 mg HS JOSSUE Administration Carvedilol 6.25 mg 01/14/20 21:00 01/19/20 09:43 Carvedilol 6.25 Mg Tab PO 6.25 mg BID JOSSUE Administration Donepezil HCl 5 mg 01/15/20 21:00 01/18/20 21:52 Donepezil Hcl 5 Mg Tab PO 5 mg HS JOSSUE Administration HCTZ/Losartan Potassium 1 tab 01/19/20 09:00 01/19/20 09:42 Losartan/Hydrochlorothiazide 100 Mg/25 Mg Tablet PO 1 tab DAILY JOSSUE Administration Haloperidol 1 mg 01/14/20 10:55 01/18/20 22:19 Haloperidol 1 Mg Tab PO 1 mg HSPRN PRN Administration ANXIETY Hydralazine HCl 25 mg 01/14/20 00:04 01/18/20 21:58 Hydralazine 25 Mg Tab PO 25 mg QID PRN Administration Hypertension Sodium Chloride 1,000 mls @ 75 mls/hr 01/14/20 00:15 01/19/20 02:49 Normal Saline 0.9% IV Not Given .[id number] JOSSUE Azithromycin 500 mg/ Sodium 250 mls @ 250 mls/hr 01/17/20 10:00 01/18/20 10:21 Chloride IVPB 250 mls Q24HR JOSSUE Administration Gentamicin Sulfate 370 mg/ 109.25 mls @ 100 mls/hr 01/18/20 15:00 01/18/20 15:31 Sodium Chloride IVPB 109.25 mls Q24HR JOSSUE Administration Ceftriaxone Sodium 1 gm/ 100 mls @ 200 mls/hr 01/18/20 12:00 01/18/20 13:34 Sodium Chloride IVPB 100 mls Q24HR JOSSUE Administration Methylprednisolone Sodium Succinate 40 mg 01/15/20 09:00 01/19/20 09:43 Methylprednisolone Sod Succ 40 Mg Vial IVP 40 mg DAILY JOSSUE Administration Metoprolol Tartrate 5 mg 01/14/20 08:54 01/17/20 23:34 Metoprolol Tartrate 5 Mg/5 Ml Vial IVP 5 mg Q4H PRN Administration for HR > 90 or SBP>150 Oxybutynin Chloride 10 mg 01/15/20 09:00 01/19/20 09:43 Oxybutynin 5 Mg Tab PO 10 mg DAILY JOSSUE Administration Sertraline HCl 100 mg 01/15/20 09:00 01/19/20 09:43 Sertraline Hcl 100 Mg Tab PO 100 mg DAILY JOSSUE Administration Sodium Chloride 10 ml 01/14/20 21:00 01/19/20 09:44 Flush - Normal Saline 10 Ml Syringe IVF 10 ml Q12HR JOSSUE Administration Trospium 20 mg 01/14/20 21:00 01/19/20 09:43 Trospium 20 Mg Tab PO 20 mg BID JOSSUE Administration - Exam General Appearance: awake alert Neck: no JVD Heart: no murmur, irregular Respiratory - other findings: L sided rales Gastrointestinal: soft, non-tender, normal bowel sounds Extremities: no edema Hosp A/P (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 transplanted heart: [place] heart Associated angina: angina presence u nspecified Qualified Code(s): I25.10 - Atherosclerotic heart disease of [place] coronary artery without angina pectoris (4) HTN (hypertension) Code(s): I10 - ESSENTIAL (PRIMARY) HYPERTENSION Status: Acute Qualifiers: Hypertension type: essential hypertension Qualified Code(s): I10 - Essential (primary) hypertension (5) Atrial fibrillation Code(s): I48.91 - UNSPECIFIED ATRIAL FIBRILLATION Status: Acute Qualifiers: Atrial fibrillation type: permanent Qualified Code(s): I48.21 - Permanent atrial fibrillation (6) Acute respiratory failure with hypoxia Code(s): J96.01 - ACUTE RESPIRATORY FAILURE WITH HYPOXIA Status: Acute (7) Leg weakness, bilateral Code(s): R29.898 - OTH SYMPTOMS AND SIGNS INVOLVING THE MUSCULOSKELETAL SYSTEM Status: Acute (8) PNA (pneumonia) Code(s): J18.9 - PNEUMONIA, UNSPECIFIED ORGANISM Status: Acute Qualifiers: Pneumonia type: due to Pneumococcus Laterality: left Lung location: lower lobe of lung Qualified Code(s): J13 - Pneumonia due to Streptococcus pneumoniae - Plan PNA= cont iv antibx cont nebs, O2 supplementation post TX G-B syndrome-improved family wishes not to have LP, restart coumadin CM for REHAB or SNR
--- NOTE | 2020-01-19 12:21 | PDOC.NEUPN ---
- Subjective Encounter Date: 01/19/20 Subjective: Patient alert and awake. Baseline confusion due to dementia. - Objective Vital Signs & Weight: Vital Signs (12 hours) Temp Pulse Resp BP BP Pulse Ox 01/19/20 11:45 97.6 F 71 16 161/91 H 94 L 01/19/20 09:43 162/84 H 01/19/20 09:42 74 162/84 H 01/19/20 08:16 74 16 98 01/19/20 08:11 98.1 F 63 14 162/84 H 97 01/19/20 06:51 98.6 F 77 18 178/80 H 92 L 01/19/20 00:49 79 22 H 94 L Weight Weight 187 lb 1.6 oz I&O: 01/18/20 01/19/20 01/20/20 06:59 06:59 06:59 Intake Total 290 360 Balance 290 360 Result Diagrams: 01/19/20 05:02 01/19/20 05:02 Radiology Reviewed by me: Yes EKG Reviewed by me: Yes ROS - Review of Systems ROS unobtainable: due to mental status - Medication Medications: Active Medications Generic Name Dose Route Start Last Admin Trade Name Freq PRN Reason Stop Dose Admin Albuterol/Ipratropium 3 ml 01/14/20 10:26 01/16/20 21:16 Ipratropium/Albuterol Sulfate 3 Ml Neb NEB 3 ml Q4H PRN Administration WHEEZING Albuterol/Ipratropium 3 ml 01/17/20 13:00 01/19/20 08:16 Ipratropium/Albuterol Sulfate 3 Ml Neb NEB 3 ml [id number] JOSSUE Administration Amlodipine Besylate 5 mg 01/19/20 09:00 01/19/20 09:42 Amlodipine 5 Mg Tab PO 5 mg DAILY JOSSUE Administration Atorvastatin Calcium 20 mg 01/14/20 21:00 01/18/20 21:52 Atorvastatin Calcium 20 Mg Tab PO 20 mg HS JOSSUE Administration Carvedilol 6.25 mg 01/14/20 21:00 01/19/20 09:43 Carvedilol 6.25 Mg Tab PO 6.25 mg BID JOSSUE Administration Donepezil HCl 5 mg 01/15/20 21:00 01/18/20 21:52 Donepezil Hcl 5 Mg Tab PO 5 mg HS JOSSUE Administration HCTZ/Losartan Potassium 1 tab 01/19/20 09:00 01/19/20 09:42 Losartan/Hydrochlorothiazide 100 Mg/25 Mg Tablet PO 1 tab DAILY JOSSUE Administration Haloperidol 1 mg 01/14/20 10:55 01/18/20 22:19 Haloperidol 1 Mg Tab PO 1 mg HSPRN PRN Administration ANXIETY Hydralazine HCl 25 mg 01/14/20 00:04 01/18/20 21:58 Hydralazine 25 Mg Tab PO 25 mg QID PRN Administration Hypertension Sodium Chloride 1,000 mls @ 75 mls/hr 01/14/20 00:15 01/19/20 02:49 Normal Saline 0.9% IV Not Given .[id number] JOSSUE Azithromycin 500 mg/ Sodium 250 mls @ 250 mls/hr 01/17/20 10:00 01/19/20 10:52 Chloride IVPB 250 mls Q24HR JOSSUE Administration Gentamicin Sulfate 370 mg/ 109.25 mls @ 100 mls/hr 01/18/20 15:00 01/18/20 15:31 Sodium Chloride IVPB 109.25 mls Q24HR JOSSUE Administration Ceftriaxone Sodium 1 gm/ 100 mls @ 200 mls/hr 01/18/20 12:00 01/18/20 13:34 Sodium Chloride IVPB 100 mls Q24HR JOSSUE Administration Methylprednisolone Sodium Succinate 40 mg 01/15/20 09:00 01/19/20 09:43 Methylprednisolone Sod Succ 40 Mg Vial IVP 40 mg DAILY JOSSUE Administration Metoprolol Tartrate 5 mg 01/14/20 08:54 01/17/20 23:34 Metoprolol Tartrate 5 Mg/5 Ml Vial IVP 5 mg Q4H PRN Administration for HR > 90 or SBP>150 Oxybutynin Chloride 10 mg 01/15/20 09:00 01/19/20 09:43 Oxybutynin 5 Mg Tab PO 10 mg DAILY JOSSUE Administration Sertraline HCl 100 mg 01/15/20 09:00 01/19/20 09:43 Sertraline Hcl 100 Mg Tab PO 100 mg DAILY JOSSUE Administration Sodium Chloride 10 ml 01/14/20 21:00 01/19/20 09:44 Flush - Normal Saline 10 Ml Syringe IVF 10 ml Q12HR JOSSUE Administration Trospium 20 mg 01/14/20 21:00 01/19/20 09:43 Trospium 20 Mg Tab PO 20 mg BID JOSSUE Administration - Exam General Appearance: awake alert Eye: PERRL ENT: normocephalic atraumatic Neck: supple Respiratory: CTAB Cardiovascular: RRR Gastrointestinal: soft Extremities: no cyanosis Skin: normal turgor Neurological: no new deficit Musculoskeletal: normal tone, no muscle wasting PSYCH: not oriented Results - Labs Result Diagrams: 01/19/20 05:02 01/19/20 05:02 Lab results: WBC 11.1 thou/uL (4.8-10.8) H 01/19/20 05:02 Hgb 11.6 g/dL (14.0-18.0) L 01/19/20 05:02 Hct 34.5 % (42.0-52.0) L 01/19/20 05:02 MCV 98.2 fL (78.0-98.0) H 01/19/20 05:02 Plt Count 143 thou/uL (130-400) 01/19/20 05:02 Neutrophils % 79.7 % (42.0-75.0) H 01/19/20 05:02 ABG pH 7.42 (7.35-7.45) 01/17/20 08:20 ABG pCO2 39.6 mmHg (35.0-45.0) 01/17/20 08:20 ABG pO2 53.4 mmHg (> 60.0) L* 01/17/20 08:20 Sodium 130 mmol/L (136-145) L 01/19/20 05:02 Potassium 3.9 mmol/L (3.5-5.1) 01/19/20 05:02 Chloride 95 mmol/L (98-107) L 01/19/20 05:02 Carbon Dioxide 27 mmol/L (23-31) 01/19/20 05:02 BUN 33 mg/dL (8.4-25.7) H 01/19/20 05:02 Creatinine 1.18 mg/dL (0.7-1.3) 01/19/20 05:02 Glucose 151 mg/dL (83-110) H 01/19/20 05:02 Calcium 8.5 mg/dL (7.8-10.44) 01/19/20 05:02 Total Bilirubin 0.7 mg/dL (0.2-1.2) 01/17/20 08:30 AST 27 U/L (5-34) 01/17/20 08:30 ALT 33 U/L (8-55) 01/17/20 08:30 Alkaline Phosphatase 33 U/L (40-110) L 01/17/20 08:30 Troponin I 0.011 ng/mL (< 0.028) 01/13/20 20:56 C-Reactive Protein 6.42 mg/dL (= or < 0.5) H 01/14/20 11:39 B-Natriuretic Peptide 161.4 pg/mL (0-100) H 01/15/20 05:35 Serum Total Protein 7.7 g/dL (5.8-8.1) 01/17/20 08:30 Albumin 3.7 g/dL (3.4-4.8) 01/17/20 08:30 Urine Ketones Negative mg/dL (Negative) 01/13/20 19:44 Urine Blood Negative (Negative) 01/13/20 19:44 Urine Nitrite Negative (Negative) 01/13/20 19:44 Ur Leukocyte Esterase Negative Jeremiah/uL (Negative) 01/13/20 19:44 Urine RBC 0-3 HPF (0-3) 01/13/20 19:44 Urine WBC 0-3 HPF (0-3) 01/13/20 19:44 Ur Squamous Epith Cells None Seen HPF (0-3) 01/13/20 19:44 Urine Bacteria None Seen HPF (None Seen) 01/13/20 19:44 - Radiology Interpretation CT scan - head Additional Comment: No acute intracranial pathology. 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 transplanted heart: [place] heart Associated angina: angina presence unspecified Qualified Code(s): I25.10 - Atherosclerotic heart disease of [place] coronary artery without angina pectoris (4) Dementia Code(s): F03.90 - UNSPECIFIED DEMENTIA WITHOUT BEHAVIORAL DISTURBANCE Status: Acute Qualifiers: Dementia type: unspecified type Dementia behavioral disturbance: without behavioral disturbance Qualified Code(s): F03.90 - Unspecified dementia without behavioral disturbance (5) HTN (hypertension) Code(s): I10 - ESSENTIAL (PRIMARY) HYPERTENSION Status: Acute Qualifiers: Hypertension type: essential hypertension Qualified Code(s): I10 - Essential (primary) hypertension (6) Leg weakness, bilateral Code(s): R29.898 - OTH SYMPTOMS AND SIGNS INVOLVING THE MUSCULOSKELETAL SYSTEM Status: Acute - Plan Daily Plan: plan discussed w/ family, PT/OT, speech therapy, DVT proph w/SCDs 85 year old male with history significant for dementia presented with bilateral weakness. 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 Completed IVIG course for 3 days. Doing better. Sill complain of SOB. LP to look for albuminocytogenic dissociation declined by family. Neurochecks every 4 hours. Monitor respiratory status . Resume coumadin. Status post IVIG X3 days for GBS. Continue home medications. Strict control of BP and BG. PT/OT/Speech. Continue medical management per primary team. Plan discussed with the .
[2020-01-19] MEDS: cefTRIAXone\\ROCEPHIN 1 GM in Sodium Chloride 0.9% 100 ML IVPB SCH (13:25)
[2020-01-19] MEDS: Gentamicin 370 MG in Sodium Chloride 0.9% 100 ML IVPB SCH (15:57)
[2020-01-19] MEDS: hydrALAZINE 25 MG TAB PO PRN (17:45)
[2020-01-19] MEDS: Warfarin Sodium 5 MG TAB PO SCH (17:45)
[2020-01-19] MEDS: Donepezil HCl 5 MG TAB PO SCH (21:06)
[2020-01-19] MEDS: Atorvastatin Calcium 20 MG TAB PO SCH (21:06)
[2020-01-19] MEDS: Haloperidol 1 MG TAB PO SCH (21:07)
[2020-01-20] MEDS: Losartan/Hydrochlorothiazide 100 mg/25 mg Tablet PO SCH (08:57)
[2020-01-20] MEDS: methylPREDNISolone Sod Succ 40 MG VIAL IVP SCH (08:57)
[2020-01-20] MEDS: Oxybutynin 5 MG TAB PO SCH (08:58)
[2020-01-20] MEDS: Carvedilol 6.25 MG TAB PO SCH ×2 (08:58→20:06)
[2020-01-20] MEDS: Amlodipine 5 MG TAB PO SCH (08:58)
[2020-01-20] MEDS: Trospium 20 MG TAB PO SCH ×2 (08:59→20:09)
[2020-01-20] MEDS: Azithromycin 500 MG in Sodium Chloride 0.9% 250 ML 250 ML IVPB SCH (10:58)
[2020-01-20] MEDS: cefTRIAXone\\ROCEPHIN 1 GM in Sodium Chloride 0.9% 100 ML IVPB SCH (12:58)
[2020-01-20] MEDS: Sodium Chloride 0.9% 1,000 ML IV SCH ×2 (14:27→17:54)
--- NOTE | 2020-01-20 15:50 | PDOC.HOSPP ---
- Subjective Encounter Date: 01/20/20 - Objective Vital Signs & Weight: Vital Signs (12 hours) Temp Pulse Resp BP BP Pulse Ox 01/20/20 11:10 99.0 F 65 16 145/71 H 100 01/20/20 08:58 76 163/80 H 01/20/20 08:15 76 12 01/20/20 08:08 98.5 F 64 14 163/80 H 100 01/20/20 08:00 98.5 F 64 14 163/80 H 100 Weight Weight 187 lb 1.6 oz I&O: 01/19/20 01/20/20 01/21/20 06:59 06:59 06:59 Intake Total 360 2320 Balance 360 2320 Result Diagrams: 01/19/20 05:02 01/19/20 05:02 Hospitalist ROS - Medication Medications: Active Medications Generic Name Dose Route Start Last Admin Trade Name Freq PRN Reason Stop Dose Admin Albuterol/Ipratropium 3 ml 01/14/20 10:26 01/16/20 21:16 Ipratropium/Albuterol Sulfate 3 Ml Neb NEB 3 ml Q4H PRN Administration WHEEZING Albuterol/Ipratropium 3 ml 01/17/20 13:00 01/20/20 12:56 Ipratropium/Albuterol Sulfate 3 Ml Neb NEB 3 ml [id number] JOSSUE Administration Amlodipine Besylate 5 mg 01/19/20 09:00 01/20/20 08:58 Amlodipine 5 Mg Tab PO 5 mg DAILY JOSSUE Administration Atorvastatin Calcium 20 mg 01/14/20 21:00 01/19/20 21:06 Atorvastatin Calcium 20 Mg Tab PO 20 mg HS JOSSUE Administration Carvedilol 6.25 mg 01/14/20 21:00 01/20/20 08:58 Carvedilol 6.25 Mg Tab PO 6.25 mg BID JOSSUE Administration Donepezil HCl 5 mg 01/15/20 21:00 01/19/20 21:06 Donepezil Hcl 5 Mg Tab PO 5 mg HS JOSSUE Administration HCTZ/Losartan Potassium 1 tab 01/19/20 09:00 01/20/20 08:57 Losartan/Hydrochlorothiazide 100 Mg/25 Mg Tablet PO 1 tab DAILY JOSSUE Administration Haloperidol 1 mg 01/19/20 21:00 01/19/20 21:07 Haloperidol 1 Mg Tab PO 1 mg HS JOSSUE Administration Hydralazine HCl 25 mg 01/14/20 00:04 01/19/20 17:45 Hydralazine 25 Mg Tab PO 25 mg QID PRN Administration Hypertension Sodium Chloride 1,000 mls @ 75 mls/hr 01/14/20 00:15 01/20/20 14:27 Normal Saline 0.9% IV Not Given .[id number] JOSSUE Azithromycin 500 mg/ Sodium 250 mls @ 250 mls/hr 01/17/20 10:00 01/20/20 10:58 Chloride IVPB 250 mls Q24HR JOSSUE Administration Gentamicin Sulfate 370 mg/ 109.25 mls @ 100 mls/hr 01/18/20 15:00 01/19/20 15:57 Sodium Chloride IVPB 109.25 mls Q24HR JOSSUE Administration Ceftriaxone Sodium 1 gm/ 100 mls @ 200 mls/hr 01/18/20 12:00 01/20/20 12:58 Sodium Chloride IVPB 100 mls Q24HR JOSSUE Administration Methylprednisolone Sodium Succinate 40 mg 01/15/20 09:00 01/20/20 08:57 Methylprednisolone Sod Succ 40 Mg Vial IVP 40 mg DAILY JOSSUE Administration Metoprolol Tartrate 5 mg 01/14/20 08:54 01/17/20 23:34 Metoprolol Tartrate 5 Mg/5 Ml Vial IVP 5 mg Q4H PRN Administration for HR > 90 or SBP>150 Oxybutynin Chloride 10 mg 01/15/20 09:00 01/20/20 08:58 Oxybutynin 5 Mg Tab PO 10 mg DAILY JOSSUE Administration Sertraline HCl 100 mg 01/15/20 09:00 01/20/20 08:58 Sertraline Hcl 100 Mg Tab PO 100 mg DAILY JOSSUE Administration Sodium Chloride 10 ml 01/14/20 21:00 01/20/20 09:00 Flush - Normal Saline 10 Ml Syringe IVF 10 ml Q12HR JOSSUE Administration Trospium 20 mg 01/14/20 21:00 01/20/20 08:59 Trospium 20 Mg Tab PO 20 mg BID JOSSUE Administration Warfarin Sodium 5 mg 01/19/20 17:00 01/19/20 17:45 Warfarin Sodium 5 Mg Tab PO 5 mg 1700 JOSSUE Administration - Exam General Appearance: awake alert ENT: normocephalic atraumatic Neck: supple Heart: RRR Respiratory: normal chest expansion, no tachypnea Gastrointestinal: soft Extremities: no cyanosis, no clubbing Neurological: cranial nerve grossly intact, no focal deficits Hosp A/P (1) Acute respiratory failure with hypoxia Code(s): J96.01 - ACUTE RESPIRATORY FAILURE WITH HYPOXIA Status: Acute (2) Atrial fibrillation Code(s): I48.91 - UNSPECIFIED ATRIAL FIBRILLATION Status: Acute Qualifiers: Atrial fibrillation type: permanent Qualified Code(s): I48.21 - Permanent atrial fibrillation (3) CAD (coronary artery disease) Code(s): I25.10 - ATHSCL HEART DISEASE OF [place] CORONARY ARTERY W/O ANG PCTRS Status: Acute Qualifiers: Coronary Disease-Associated Artery/Lesion type: [place] artery [place] vs. 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 The patient is pleasantly confused due to underlying dementia. He is on warfarin for atrial fibrillation. INR is 1.7. Continue monitoring INR daily. Pending placement.
[2020-01-20] MEDS: Gentamicin 370 MG in Sodium Chloride 0.9% 100 ML IVPB SCH (16:29)
[2020-01-20] MEDS: Warfarin Sodium 5 MG TAB PO SCH (17:54)
[2020-01-20] MEDS: Atorvastatin Calcium 20 MG TAB PO SCH (20:06)
[2020-01-20] MEDS: Haloperidol 1 MG TAB PO SCH (20:09)
[2020-01-20] MEDS: Donepezil HCl 5 MG TAB PO SCH (20:09)
[2020-01-21] MEDS: Sodium Chloride 0.9% 1,000 ML IV SCH (04:36)
[2020-01-21] MEDS: hydrALAZINE 25 MG TAB PO PRN (05:44)
[2020-01-21 05:46] LABS: #Eosinphils 0.1 thou/uL (0.0-0.7); #Lymphocytes 1.3 thou/uL (1.20-3.40); #Monocytes 1.3 thou/uL (0.11-0.59); %Basophils 0.1 % (0.0-1.0); %Eosinophils 0.5 % (0.0-10.0); %Lymphocytes 12.4 % (21.0-51.0); %Monocytes 11.8 % (0.0-10.0); %Neutrophils 75.2 % (42.0-75.0); Hemoglobin 12.6 g/dL (14.0-18.0); Mean Corpuscular HGB CONC 33.8 g/dL (32.0-36.0); Mean Corpuscular Hemoglobin 33.2 pg (27.0-31.0); Mean Corpuscular Volume 98.3 fL (78.0-98.0); Mean Platelet Volume 9.6 fL (7.4-10.4); Platelet Count 186 thou/uL (130-400); RBC Distribution Width 11.8 % (11.5-14.5); White Blood Cell (WBC) Count 10.6 thou/uL (4.8-10.8)
[2020-01-21 05:47] LABS: INR-International Normal Ratio 1.5; Prothrombin Time 18.4 sec (12.0-14.7)
[2020-01-21 06:12] LABS: Anion Gap 13 mmol/L (10-20); BUN (Urea Nitrogen) 34 mg/dL (8.4-25.7); Calc. Creatinine Clearance 53 mL/min (70-130); Carbon Dioxide 30 mmol/L (23-31); Chloride 93 mmol/L (98-107); Estimated GFR-MDRD 54; Glucose 138 mg/dL (83-110); Potassium 3.8 mmol/L (3.5-5.1); Sodium 132 mmol/L (136-145)
[2020-01-21] MEDS: Amlodipine 5 MG TAB PO SCH (08:12)
[2020-01-21] MEDS: Carvedilol 6.25 MG TAB PO SCH ×2 (08:12→20:22)
[2020-01-21] MEDS: Losartan/Hydrochlorothiazide 100 mg/25 mg Tablet PO SCH (08:12)
[2020-01-21] MEDS: Oxybutynin 5 MG TAB PO SCH (08:13)
[2020-01-21] MEDS: methylPREDNISolone Sod Succ 40 MG VIAL IVP SCH (08:13)
[2020-01-21] MEDS: Trospium 20 MG TAB PO SCH ×2 (08:15→20:22)
[2020-01-21] MEDS: Azithromycin 500 MG in Sodium Chloride 0.9% 250 ML 250 ML IVPB SCH (10:31)
[2020-01-21] MEDS: cefTRIAXone\\ROCEPHIN 1 GM in Sodium Chloride 0.9% 100 ML IVPB SCH (11:57)
--- NOTE | 2020-01-21 13:23 | PDOC.HOSPP ---
- Subjective Encounter Date: 01/21/20 - Objective Vital Signs & Weight: Vital Signs (12 hours) Temp Pulse Resp BP BP Pulse Ox 01/21/20 11:39 98.0 F 74 16 134/88 100 01/21/20 08:12 60 148/78 H 01/21/20 08:00 16 100 01/21/20 07:13 98.0 F 63 16 148/78 H 100 01/21/20 07:09 58 L 14 98 01/21/20 05:44 64 151/79 H 01/21/20 05:32 64 151/79 H 01/21/20 04:52 98.5 F 81 16 174/68 H 93 L Weight Weight 187 lb 1.6 oz I&O: 01/20/20 01/21/20 01/22/20 06:59 06:59 06:59 Intake Total 2320 400 Balance 2320 400 Result Diagrams: 01/21/20 05:29 01/21/20 05:29 Hospitalist ROS - Medication Medications: Active Medications Generic Name Dose Route Start Last Admin Trade Name Freq PRN Reason Stop Dose Admin Albuterol/Ipratropium 3 ml 01/14/20 10:26 01/16/20 21:16 Ipratropium/Albuterol Sulfate 3 Ml Neb NEB 3 ml Q4H PRN Administration WHEEZING Albuterol/Ipratropium 3 ml 01/17/20 13:00 01/21/20 13:19 Ipratropium/Albuterol Sulfate 3 Ml Neb NEB 3 ml [id number] JOSSUE Administration Amlodipine Besylate 5 mg 01/19/20 09:00 01/21/20 08:12 Amlodipine 5 Mg Tab PO 5 mg DAILY JOSSUE Administration Atorvastatin Calcium 20 mg 01/14/20 21:00 01/20/20 20:06 Atorvastatin Calcium 20 Mg Tab PO 20 mg HS JOSSUE Administration Carvedilol 6.25 mg 01/14/20 21:00 01/21/20 08:12 Carvedilol 6.25 Mg Tab PO 6.25 mg BID JOSSUE Administration Donepezil HCl 5 mg 01/15/20 21:00 01/20/20 20:09 Donepezil Hcl 5 Mg Tab PO 5 mg HS JOSSUE Administration HCTZ/Losartan Potassium 1 tab 01/19/20 09:00 01/21/20 08:12 Losartan/Hydrochlorothiazide 100 Mg/25 Mg Tablet PO 1 tab DAILY JOSSUE Administration Haloperidol 1 mg 01/19/20 21:00 01/20/20 20:09 Haloperidol 1 Mg Tab PO 1 mg HS JOSSUE Administration Hydralazine HCl 25 mg 01/14/20 00:04 01/21/20 05:44 Hydralazine 25 Mg Tab PO 25 mg QID PRN Administration Hypertension Sodium Chloride 1,000 mls @ 75 mls/hr 01/14/20 00:15 01/21/20 04:36 Normal Saline 0.9% IV Not Given .[id number] JOSSUE Azithromycin 500 mg/ Sodium 250 mls @ 250 mls/hr 01/17/20 10:00 01/21/20 10:31 Chloride IVPB 250 mls Q24HR JOSSUE Administration Gentamicin Sulfate 370 mg/ 109.25 mls @ 100 mls/hr 01/18/20 15:00 01/20/20 16:29 Sodium Chloride IVPB 109.25 mls Q24HR JOSSUE Administration Ceftriaxone Sodium 1 gm/ 100 mls @ 200 mls/hr 01/18/20 12:00 01/21/20 11:57 Sodium Chloride IVPB 100 mls Q24HR JOSSUE Administration Methylprednisolone Sodium Succinate 40 mg 01/15/20 09:00 01/21/20 08:13 Methylprednisolone Sod Succ 40 Mg Vial IVP 40 mg DAILY JOSSUE Administration Metoprolol Tartrate 5 mg 01/14/20 08:54 01/17/20 23:34 Metoprolol Tartrate 5 Mg/5 Ml Vial IVP 5 mg Q4H PRN Administration for HR > 90 or SBP>150 Oxybutynin Chloride 10 mg 01/15/20 09:00 01/21/20 08:13 Oxybutynin 5 Mg Tab PO 10 mg DAILY JOSSUE Administration Sertraline HCl 100 mg 01/15/20 09:00 01/21/20 08:12 Sertraline Hcl 100 Mg Tab PO 100 mg DAILY JOSSUE Administration Sodium Chloride 10 ml 01/14/20 21:00 01/21/20 08:13 Flush - Normal Saline 10 Ml Syringe IVF 10 ml Q12HR JOSSUE Administration Trospium 20 mg 01/14/20 21:00 01/21/20 08:15 Trospium 20 Mg Tab PO 20 mg BID JOSSUE Administration Warfarin Sodium 5 mg 01/19/20 17:00 01/20/20 17:54 Warfarin Sodium 5 Mg Tab PO 5 mg 1700 JOSSUE Administration - Exam General Appearance: awake alert ENT: normocephalic atraumatic Neck: supple, no JVD Heart: RRR Respiratory: normal chest expansion, no tachypnea Extremities: no cyanosis, no clubbing Neurological: cranial nerve grossly intact, no weakness Hosp A/P (1) Acute respiratory failure with hypoxia Code(s): J96.01 - ACUTE RESPIRATORY FAILURE WITH HYPOXIA Status: Acute (2) Atrial fibrillation Code(s): I48.91 - UNSPECIFIED ATRIAL FIBRILLATION Status: Acute Qualifiers: Atrial fibrillation type: permanent Qualified Code(s): I48.21 - Permanent atrial fibrillation (3) CAD (coronary artery disease) Code(s): I25.10 - ATHSCL HEART DISEASE OF [place] CORONARY ARTERY W/O ANG PCTRS Status: Acute Qualifiers: Coronary Disease-Associated Artery/Lesion type: [place] artery [place] vs. 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 The patient is pleasantly confused due to underlying dementia. He is on warfarin for atrial fibrillation. INR is 1.5. Increase warfarin dose to 7.5 mg orally daily. Pending placement.
[2020-01-21] MEDS: Gentamicin 370 MG in Sodium Chloride 0.9% 100 ML IVPB SCH (14:51)
[2020-01-21] MEDS ORDERED: Acetaminophen 325 MG TAB PO PRN (16:38)
[2020-01-21] MEDS: Warfarin Sodium 7.5 MG TAB PO SCH (17:47)
[2020-01-21] MEDS: Atorvastatin Calcium 20 MG TAB PO SCH (20:21)
[2020-01-21] MEDS: Donepezil HCl 5 MG TAB PO SCH (20:22)
[2020-01-21] MEDS: Haloperidol 1 MG TAB PO SCH (20:22)
[2020-01-22] MEDS: Sodium Chloride 0.9% 1,000 ML IV SCH ×3 (02:33→21:45)
[2020-01-22 06:26] LABS: #Eosinphils 0.1 thou/uL (0.0-0.7); #Lymphocytes 1.6 thou/uL (1.20-3.40); #Monocytes 1.3 thou/uL (0.11-0.59); #Neutrophils 9.2 thou/uL (1.40-6.50); %Basophils 0.2 % (0.0-1.0); %Eosinophils 0.9 % (0.0-10.0); %Monocytes 10.8 % (0.0-10.0); %Neutrophils 75.1 % (42.0-75.0); Hemoglobin 12.2 g/dL (14.0-18.0); Mean Corpuscular HGB CONC 33.4 g/dL (32.0-36.0); Mean Corpuscular Volume 98.7 fL (78.0-98.0); Mean Platelet Volume 9.9 fL (7.4-10.4); Platelet Count 183 thou/uL (130-400); RBC Distribution Width 11.9 % (11.5-14.5); White Blood Cell (WBC) Count 12.3 thou/uL (4.8-10.8)
[2020-01-22 06:30] LABS: INR-International Normal Ratio 1.6; Prothrombin Time 19.6 sec (12.0-14.7)
[2020-01-22 06:43] LABS: Anion Gap 12 mmol/L (10-20); BUN (Urea Nitrogen) 36 mg/dL (8.4-25.7); Calc. Creatinine Clearance 47 mL/min (70-130); Calcium 8.7 mg/dL (7.8-10.44); Carbon Dioxide 33 mmol/L (23-31); Chloride 92 mmol/L (98-107); Estimated GFR-MDRD 47; Glucose 136 mg/dL (83-110); Potassium 3.6 mmol/L (3.5-5.1); Sodium 133 mmol/L (136-145)
[2020-01-22] MEDS: Amlodipine 5 MG TAB PO SCH (08:45)
[2020-01-22] MEDS: Oxybutynin 5 MG TAB PO SCH (08:46)
[2020-01-22] MEDS: Trospium 20 MG TAB PO SCH ×2 (08:46→21:38)
[2020-01-22] MEDS: Carvedilol 6.25 MG TAB PO SCH ×2 (08:46→21:38)
[2020-01-22] MEDS: Losartan/Hydrochlorothiazide 100 mg/25 mg Tablet PO SCH (08:46)
[2020-01-22] MEDS: methylPREDNISolone Sod Succ 40 MG VIAL IVP SCH (08:47)
[2020-01-22] MEDS: Azithromycin 500 MG in Sodium Chloride 0.9% 250 ML 250 ML IVPB SCH (12:03)
[2020-01-22] MEDS: Amoxicillin/Potassium Clav 875 MG TAB PO SCH ×2 (12:37→23:40)
--- NOTE | 2020-01-22 15:17 | PDOC.HOSPP ---
- Subjective Encounter Date: 01/22/20 Subjective: The patient remains confused. - Objective Vital Signs & Weight: Vital Signs (12 hours) Temp Pulse Resp BP BP Pulse Ox 01/22/20 14:24 67 16 95 01/22/20 10:55 98.1 F 62 18 153/75 H 93 L 01/22/20 08:46 144/93 H 01/22/20 08:45 73 01/22/20 08:17 73 16 97 01/22/20 08:15 97 01/22/20 07:04 98.7 F 55 L 18 144/93 H 97 01/22/20 03:48 98.3 F 60 16 166/73 H 100 Weight Weight 187 lb 1.6 oz I&O: 01/21/20 01/22/20 01/23/20 06:59 06:59 06:59 Intake Total 400 810 Output Total 550 Balance 400 260 Result Diagrams: 01/22/20 05:40 01/22/20 05:40 Hospitalist ROS - Medication Medications: Active Medications Generic Name Dose Route Start Last Admin Trade Name Freq PRN Reason Stop Dose Admin Acetaminophen 650 mg 01/21/20 16:38 01/21/20 17:48 Acetaminophen 325 Mg Tab PO 650 mg Q6H PRN Administration Headache/ Albuterol/Ipratropium 3 ml 01/14/20 10:26 01/16/20 21:16 Ipratropium/Albuterol Sulfate 3 Ml Neb NEB 3 ml Q4H PRN Administration WHEEZING Albuterol/Ipratropium 3 ml 01/17/20 13:00 01/22/20 14:24 Ipratropium/Albuterol Sulfate 3 Ml Neb NEB 3 ml [id number] JOSSUE Administration Amlodipine Besylate 5 mg 01/19/20 09:00 01/22/20 08:45 Amlodipine 5 Mg Tab PO 5 mg DAILY JOSSUE Administration Amoxicillin/Clavulanate Potassium 875 mg 01/22/20 21:00 01/22/20 12:37 Amoxicillin/Potassium Clav 875 Mg Tab PO 875 mg Q12HR JOSSUE Administration Atorvastatin Calcium 20 mg 01/14/20 21:00 01/21/20 20:21 Atorvastatin Calcium 20 Mg Tab PO 20 mg HS JOSSUE Administration Carvedilol 6.25 mg 01/14/20 21:00 01/22/20 08:46 Carvedilol 6.25 Mg Tab PO 6.25 mg BID JOSSUE Administration Donepezil HCl 5 mg 01/15/20 21:00 01/21/20 20:22 Donepezil Hcl 5 Mg Tab PO 5 mg HS JOSSUE Administration HCTZ/Losartan Potassium 1 tab 01/19/20 09:00 01/22/20 08:46 Losartan/Hydrochlorothiazide 100 Mg/25 Mg Tablet PO 1 tab DAILY JOSSUE Administration Haloperidol 1 mg 01/19/20 21:00 01/21/20 20:22 Haloperidol 1 Mg Tab PO 1 mg HS JOSSUE Administration Hydralazine HCl 25 mg 01/14/20 00:04 01/21/20 05:44 Hydralazine 25 Mg Tab PO 25 mg QID PRN Administration Hypertension Sodium Chloride 1,000 mls @ 75 mls/hr 01/14/20 00:15 01/22/20 08:47 Normal Saline 0.9% IV Not Given .[id number] JOSSUE Gentamicin Sulfate 370 mg/ 109.25 mls @ 100 mls/hr 01/18/20 15:00 01/21/20 14:51 Sodium Chloride IVPB 109.25 mls Q24HR JOSSUE Administration Methylprednisolone Sodium Succinate 40 mg 01/15/20 09:00 01/22/20 08:47 Methylprednisolone Sod Succ 40 Mg Vial IVP 40 mg DAILY JOSSUE Administration Metoprolol Tartrate 5 mg 01/14/20 08:54 01/17/20 23:34 Metoprolol Tartrate 5 Mg/5 Ml Vial IVP 5 mg Q4H PRN Administration for HR > 90 or SBP>150 Oxybutynin Chloride 10 mg 01/15/20 09:00 01/22/20 08:46 Oxybutynin 5 Mg Tab PO 10 mg DAILY JOSSUE Administration Sertraline HCl 100 mg 01/15/20 09:00 01/22/20 08:46 Sertraline Hcl 100 Mg Tab PO 100 mg DAILY JOSSUE Administration Sodium Chloride 10 ml 01/14/20 21:00 01/22/20 08:47 Flush - Normal Saline 10 Ml Syringe IVF 10 ml Q12HR JOSSUE Administration Trospium 20 mg 01/14/20 21:00 01/22/20 08:46 Trospium 20 Mg Tab PO 20 mg BID JOSSUE Administration Warfarin Sodium 7.5 mg 01/21/20 17:00 01/21/20 17:47 Warfarin Sodium 7.5 Mg Tab PO 7.5 mg 1700 JOSSUE Administration - Exam General Appearance: awake alert ENT: normocephalic atraumatic Neck: supple, no JVD Respiratory: normal chest expansion, no tachypnea Extremities: no cyanosis, no clubbing Neurological: cranial nerve grossly intact Hosp A/P (1) Acute respiratory failure with hypoxia Code(s): J96.01 - ACUTE RESPIRATORY FAILURE WITH HYPOXIA Status: Acute (2) Atrial fibrillation Code(s): I48.91 - UNSPECIFIED ATRIAL FIBRILLATION Status: Acute Qualifiers: Atrial fibrillation type: permanent Qualified Code(s): I48.21 - Permanent atrial fibrillation (3) CAD (coronary artery disease) Code(s): I25.10 - ATHSCL HEART DISEASE OF [place] CORONARY ARTERY W/O ANG PCTRS Status: Acute Qualifiers: Coronary Disease-Associated Artery/Lesion type: [place] artery [place] vs. 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 The patient is pleasantly confused due to underlying dementia. He is on warfarin for atrial fibrillation. INR is 1.7. Creatinine level worsened since yesterday. Hold hydrochlorothiazide and losartan. Pending placement.
[2020-01-22] MEDS: Warfarin Sodium 7.5 MG TAB PO SCH (17:08)
[2020-01-22] MEDS: Gentamicin 370 MG in Sodium Chloride 0.9% 100 ML IVPB SCH (18:12)
[2020-01-22] MEDS: cefTRIAXone\\ROCEPHIN 1 GM in Sodium Chloride 0.9% 100 ML IVPB SCH (18:12)
[2020-01-22] MEDS: Donepezil HCl 5 MG TAB PO SCH (21:38)
[2020-01-22] MEDS: Haloperidol 1 MG TAB PO SCH (21:38)
[2020-01-22] MEDS: Atorvastatin Calcium 20 MG TAB PO SCH (21:38)
[2020-01-23 05:38] LABS: #Basophils 0.1 thou/uL (0.0-0.2); #Eosinphils 0.3 thou/uL (0.0-0.7); #Lymphocytes 1.8 thou/uL (1.20-3.40); #Monocytes 1.2 thou/uL (0.11-0.59); #Neutrophils 8.9 thou/uL (1.40-6.50); %Basophils 0.8 % (0.0-1.0); %Eosinophils 2.3 % (0.0-10.0); %Lymphocytes 14.9 % (21.0-51.0); %Monocytes 9.8 % (0.0-10.0); %Neutrophils 72.1 % (42.0-75.0); Hemoglobin 13.4 g/dL (14.0-18.0); Mean Corpuscular HGB CONC 32.8 g/dL (32.0-36.0); Mean Corpuscular Volume 97.6 fL (78.0-98.0); Mean Platelet Volume 9.2 fL (7.4-10.4); Platelet Count 194 thou/uL (130-400); RBC Distribution Width 11.9 % (11.5-14.5); Red Blood Cell (RBC) Count 4.19 mill/uL (4.70-6.10); White Blood Cell (WBC) Count 12.3 thou/uL (4.8-10.8)
[2020-01-23 05:44] LABS: INR-International Normal Ratio 1.8; Prothrombin Time 20.8 sec (12.0-14.7)
[2020-01-23 06:00] LABS: Anion Gap 14 mmol/L (10-20); BUN (Urea Nitrogen) 44 mg/dL (8.4-25.7); Calc. Creatinine Clearance 37 mL/min (70-130); Calcium 8.8 mg/dL (7.8-10.44); Carbon Dioxide 31 mmol/L (23-31); Chloride 93 mmol/L (98-107); Estimated GFR-MDRD 36; Glucose 113 mg/dL (83-110); Potassium 3.5 mmol/L (3.5-5.1); Sodium 134 mmol/L (136-145)
[2020-01-23] MEDS: Amoxicillin/Potassium Clav 875 MG TAB PO SCH (08:45)
[2020-01-23] MEDS: Amlodipine 5 MG TAB PO SCH (08:46)
[2020-01-23] MEDS: Carvedilol 6.25 MG TAB PO SCH ×2 (08:46→20:13)
[2020-01-23] MEDS: Oxybutynin 5 MG TAB PO SCH (08:46)
[2020-01-23] MEDS: Trospium 20 MG TAB PO SCH ×2 (08:46→20:13)
[2020-01-23] MEDS: predniSONE 20 MG TAB PO SCH (08:46)
[2020-01-23] MEDS: Sodium Chloride 0.9% 1,000 ML IV SCH ×3 (08:54→22:30)
[2020-01-23] MEDS ORDERED: Azithromycin 250 MG TAB PO SCH (09:00)
[2020-01-23] MEDS ORDERED: Bisacodyl 10 MG SUPP PR SCH (10:15)
[2020-01-23] MEDS ORDERED: Polyethylene Glycol 3350 17 GM Packet PO SCH (10:15)
[2020-01-23] MEDS ORDERED: Fleet Enema 133 ML BOT PR SCH (13:30)
--- NOTE | 2020-01-23 14:55 | PDOC.HOSPP ---
- Subjective Encounter Date: 01/23/20 - Objective Vital Signs & Weight: Vital Signs (12 hours) Temp Pulse Resp BP Pulse Ox 01/23/20 10:59 98.6 F 65 16 136/83 94 L 01/23/20 07:15 98.6 F 64 18 136/87 98 01/23/20 07:00 64 16 01/23/20 03:59 98.8 F 67 18 141/64 H 96 Weight Weight 187 lb 1.6 oz I&O: 01/22/20 01/23/20 01/24/20 06:59 06:59 06:59 Intake Total 810 980 Output Total 550 Balance 260 980 Result Diagrams: 01/23/20 05:26 01/23/20 05:26 Hospitalist ROS - Medication Medications: Active Medications Generic Name Dose Route Start Last Admin Trade Name Freq PRN Reason Stop Dose Admin Acetaminophen 650 mg 01/21/20 16:38 01/21/20 17:48 Acetaminophen 325 Mg Tab PO 650 mg Q6H PRN Administration Headache/ Albuterol/Ipratropium 3 ml 01/14/20 10:26 01/16/20 21:16 Ipratropium/Albuterol Sulfate 3 Ml Neb NEB 3 ml Q4H PRN Administration WHEEZING Albuterol/Ipratropium 3 ml 01/17/20 13:00 01/23/20 07:00 Ipratropium/Albuterol Sulfate 3 Ml Neb NEB 3 ml [id number] JOSSUE Administration Amlodipine Besylate 5 mg 01/19/20 09:00 01/23/20 08:46 Amlodipine 5 Mg Tab PO 5 mg DAILY JOSSUE Administration Atorvastatin Calcium 20 mg 01/14/20 21:00 01/22/20 21:38 Atorvastatin Calcium 20 Mg Tab PO 20 mg HS JOSSUE Administration Carvedilol 6.25 mg 01/14/20 21:00 01/23/20 08:46 Carvedilol 6.25 Mg Tab PO 6.25 mg BID JOSSUE Administration Donepezil HCl 5 mg 01/15/20 21:00 01/22/20 21:38 Donepezil Hcl 5 Mg Tab PO 5 mg HS JOSSUE Administration HCTZ/Losartan Potassium 1 tab 01/19/20 09:00 01/22/20 08:46 Losartan/Hydrochlorothiazide 100 Mg/25 Mg Tablet PO 1 tab DAILY JOSSUE Administration Haloperidol 1 mg 01/19/20 21:00 01/22/20 21:38 Haloperidol 1 Mg Tab PO 1 mg HS JOSSUE Administration Hydralazine HCl 25 mg 01/14/20 00:04 01/21/20 05:44 Hydralazine 25 Mg Tab PO 25 mg QID PRN Administration Hypertension Metoprolol Tartrate 5 mg 01/14/20 08:54 01/17/20 23:34 Metoprolol Tartrate 5 Mg/5 Ml Vial IVP 5 mg Q4H PRN Administration for HR > 90 or SBP>150 Oxybutynin Chloride 10 mg 01/15/20 09:00 01/23/20 08:46 Oxybutynin 5 Mg Tab PO 10 mg DAILY JOSSUE Administration Prednisone 40 mg 01/23/20 09:00 01/23/20 08:46 Prednisone 20 Mg Tab PO 40 mg DAILY JOSSUE Administration Sertraline HCl 100 mg 01/15/20 09:00 01/23/20 08:45 Sertraline Hcl 100 Mg Tab PO 100 mg DAILY JOSSUE Administration Sodium Biphosphate/Sodium Phosphate 133 ml 01/23/20 13:30 01/23/20 14:26 Fleet Enema 133 Ml Bot DE 01/23/20 15:30 133 ml NOW JOSSUE Administration Sodium Chloride 10 ml 01/14/20 21:00 01/23/20 08:46 Flush - Normal Saline 10 Ml Syringe IVF Not Given Q12HR JOSSUE Trospium 20 mg 01/14/20 21:00 01/23/20 08:46 Trospium 20 Mg Tab PO 20 mg BID JOSSUE Administration Warfarin Sodium 7.5 mg 01/21/20 17:00 01/22/20 17:08 Warfarin Sodium 7.5 Mg Tab PO 7.5 mg 1700 JOSSUE Administration - Exam General Appearance: awake alert ENT: normocephalic atraumatic Neck: supple, no JVD Heart: RRR Respiratory: normal chest expansion, no tachypnea Extremities: no cyanosis, no clubbing Hosp A/P (1) Acute respiratory failure with hypoxia Code(s): J96.01 - ACUTE RESPIRATORY FAILURE WITH HYPOXIA Status: Acute (2) Atrial fibrillation Code(s): I48.91 - UNSPECIFIED ATRIAL FIBRILLATION Status: Acute Qualifiers: Atrial fibrillation type: permanent Qualified Code(s): I48.21 - Permanent atrial fibrillation (3) CAD (coronary artery disease) Code(s): I25.10 - ATHSCL HEART DISEASE OF [place] CORONARY ARTERY W/O ANG PCTRS Status: Acute Qualifiers: Coronary Disease-Associated Artery/Lesion type: [place] artery [place] vs. 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 The patient is pleasantly confused due to underlying dementia. He is on warfarin for atrial fibrillation. INR is 1.8. Acute renal failure likely due to dehydration and gentamicin. Increase IV fluids to 150 cc/h. Losartan and hydrochlorothiazide are on hold. The patient completed 5 days of antibiotics for pneumonia. Mineral oil enema for constipation.
[2020-01-23 16:41] LABS: Bacteria/HPF None Seen HPF (None Seen); Bilirubin Negative (Negative); Blood, Urine Trace (Negative); Clarity Clear (Clear); Glucose, Urine (Dipstick) Normal (Negative); Ketone, Urine Negative (Negative); Leukocyte Negative Leu/uL (Negative); Nitrite Negative (Negative); Protein, Urine (Dipstick) 50 mg/dL (Neg-Trace); RBC/HPF 0-3 HPF (0-3); Specific Gravity, Urine 1.016 (1.002-1.036); Squamous Epithelial None Seen HPF (0-3); Urobilinogen Normal mg/dL (Less than 2); pH, Urine 6.5 (5.0-9.0)
[2020-01-23] MEDS: Warfarin Sodium 7.5 MG TAB PO SCH (16:56)
[2020-01-23] MEDS: Donepezil HCl 5 MG TAB PO SCH (20:13)
[2020-01-23] MEDS: Atorvastatin Calcium 20 MG TAB PO SCH (20:13)
[2020-01-23] MEDS: Haloperidol 1 MG TAB PO SCH (20:14)
[2020-01-24] MEDS: Sodium Chloride 0.9% 1,000 ML IV SCH ×3 (05:07→17:05)
[2020-01-24 06:00] LABS: INR-International Normal Ratio 1.8; Prothrombin Time 21.3 sec (12.0-14.7)
[2020-01-24 06:18] LABS: Anion Gap 13 mmol/L (10-20); BUN (Urea Nitrogen) 43 mg/dL (8.4-25.7); Band 2 % (5-11); Calc. Creatinine Clearance 38 mL/min (70-130); Calcium 7.8 mg/dL (7.8-10.44); Carbon Dioxide 22 mmol/L (23-31); Chloride 99 mmol/L (98-107); Estimated GFR-MDRD 37; Glucose 181 mg/dL (83-110); Hypochromia SLIGHT = 6-15 cells (100X) (0-5/hpf); Lymphocytes 3 % (21-51); MDiff Complete? YES; Mean Corpuscular HGB CONC 34.2 g/dL (32.0-36.0); Mean Corpuscular Hemoglobin 33.5 pg (27.0-31.0); Mean Corpuscular Volume 97.8 fL (78.0-98.0); Mean Platelet Volume 9.7 fL (7.4-10.4); Monocytes 8 % (0-10); Neutrophil 87 % (42-75); Platelet Count 164 thou/uL (130-400); Platelet Morphology Comment Appears Adequate; Potassium 3.7 mmol/L (3.5-5.1); RBC Distribution Width 11.9 % (11.5-14.5); Red Blood Cell (RBC) Count 3.59 mill/uL (4.70-6.10); Sodium 130 mmol/L (136-145); White Blood Cell (WBC) Count 15.3 thou/uL (4.8-10.8)
--- NOTE | 2020-01-24 07:59 | RAD ---
Exam: Chest one view HISTORY:Shortness of breath Comparison: 01/17/2020, 01/13/2020 FINDINGS: Cardiac silhouette:Stable cardiac silhouette is stable sternotomy wires. Aorta: Unremarkable Pulmonary vessels: Normal Costophrenic angles: Clear LUNGS: Improved aeration of the lung parenchyma. Residual interstitial opacities lung bases do remain . Pneumothorax: None Osseous abnormalities: None IMPRESSION: 1. Improved aeration of the lung parenchyma. 2. Residual opacity in the lung bases do remain. Continued surveillance is recommended.
[2020-01-24] MEDS: predniSONE 20 MG TAB PO SCH (10:38)
[2020-01-24] MEDS: Carvedilol 6.25 MG TAB PO SCH ×2 (10:38→20:00)
[2020-01-24] MEDS: Trospium 20 MG TAB PO SCH ×2 (10:38→20:00)
[2020-01-24] MEDS: Oxybutynin 5 MG TAB PO SCH (10:38)
[2020-01-24] MEDS: Amlodipine 5 MG TAB PO SCH (10:38)
[2020-01-24] MEDS: Warfarin Sodium 7.5 MG TAB PO SCH (17:05)
[2020-01-24] MEDS: Haloperidol 1 MG TAB PO SCH (20:00)
[2020-01-24] MEDS: Donepezil HCl 5 MG TAB PO SCH (20:00)
[2020-01-24] MEDS: Atorvastatin Calcium 20 MG TAB PO SCH (20:00)
--- NOTE | 2020-01-24 20:31 | PDOC.HOSPP ---
- Subjective Encounter Date: 01/24/20 - Objective Vital Signs & Weight: Vital Signs (12 hours) Temp Pulse Resp BP BP Pulse Ox 01/24/20 20:00 153/69 H 01/24/20 19:33 98.4 F 70 15 153/69 H 93 L 01/24/20 18:47 70 16 93 L 01/24/20 17:08 70 132/65 01/24/20 16:05 97.8 F 67 18 142/76 H 93 L 01/24/20 14:09 67 20 93 L 01/24/20 11:49 99.2 F 68 14 166/85 H 93 L 01/24/20 10:38 57 L 148/82 H Weight Admit Weight 187 lb 1.6 oz Weight 187 lb 1.6 oz I&O: 01/23/20 01/24/20 01/25/20 06:59 06:59 06:59 Intake Total 980 3890 2730 Output Total 700 Balance 980 3190 2730 Result Diagrams: 01/24/20 05:40 01/24/20 05:40 Hospitalist ROS - Medication Medications: Active Medications Generic Name Dose Route Start Last Admin Trade Name Freq PRN Reason Stop Dose Admin Acetaminophen 650 mg 01/21/20 16:38 01/21/20 17:48 Acetaminophen 325 Mg Tab PO 650 mg Q6H PRN Administration Headache/ Albuterol/Ipratropium 3 ml 01/14/20 10:26 01/16/20 21:16 Ipratropium/Albuterol Sulfate 3 Ml Neb NEB 3 ml Q4H PRN Administration WHEEZING Albuterol/Ipratropium 3 ml 01/17/20 13:00 01/24/20 18:47 Ipratropium/Albuterol Sulfate 3 Ml Neb NEB 3 ml [id number] JOSSUE Administration Amlodipine Besylate 5 mg 01/19/20 09:00 01/24/20 10:38 Amlodipine 5 Mg Tab PO 5 mg DAILY JOSSUE Administration Atorvastatin Calcium 20 mg 01/14/20 21:00 01/24/20 20:00 Atorvastatin Calcium 20 Mg Tab PO 20 mg HS JOSSUE Administration Carvedilol 6.25 mg 01/14/20 21:00 01/24/20 20:00 Carvedilol 6.25 Mg Tab PO 6.25 mg BID JOSSUE Administration Donepezil HCl 5 mg 01/15/20 21:00 01/24/20 20:00 Donepezil Hcl 5 Mg Tab PO 5 mg HS JOSSUE Administration Haloperidol 1 mg 01/19/20 21:00 01/24/20 20:00 Haloperidol 1 Mg Tab PO 1 mg HS JOSSUE Administration Hydralazine HCl 25 mg 01/14/20 00:04 01/21/20 05:44 Hydralazine 25 Mg Tab PO 25 mg QID PRN Administration Hypertension Sodium Chloride 1,000 mls @ 150 mls/hr 01/23/20 14:50 01/24/20 17:05 Normal Saline 0.9% IV 1,000 mls .[id number] JOSSUE Administration Metoprolol Tartrate 5 mg 01/14/20 08:54 01/17/20 23:34 Metoprolol Tartrate 5 Mg/5 Ml Vial IVP 5 mg Q4H PRN Administration for HR > 90 or SBP>150 Oxybutynin Chloride 10 mg 01/15/20 09:00 01/24/20 10:38 Oxybutynin 5 Mg Tab PO 10 mg DAILY JOSSUE Administration Sertraline HCl 100 mg 01/15/20 09:00 01/24/20 10:38 Sertraline Hcl 100 Mg Tab PO 100 mg DAILY JOSSUE Administration Sodium Chloride 10 ml 01/14/20 21:00 01/24/20 20:01 Flush - Normal Saline 10 Ml Syringe IVF Not Given Q12HR JOSSUE Trospium 20 mg 01/14/20 21:00 01/24/20 20:00 Trospium 20 Mg Tab PO 20 mg BID JOSSUE Administration Warfarin Sodium 7.5 mg 01/21/20 17:00 01/24/20 17:05 Warfarin Sodium 7.5 Mg Tab PO 7.5 mg 1700 JOSSUE Administration - Exam General Appearance: awake alert ENT: normocephalic atraumatic Neck: supple, no JVD Heart: RRR Respiratory: normal chest expansion, no tachypnea Gastrointestinal: soft Extremities: no cyanosis, no clubbing Neurological: no focal deficits Hosp A/P (1) Acute respiratory failure with hypoxia Code(s): J96.01 - ACUTE RESPIRATORY FAILURE WITH HYPOXIA Status: Acute (2) Atrial fibrillation Code(s): I48.91 - UNSPECIFIED ATRIAL FIBRILLATION Status: Acute Qualifiers: Atrial fibrillation type: permanent Qualified Code(s): I48.21 - Permanent atrial fibrillation (3) CAD (coronary artery disease) Code(s): I25.10 - ATHSCL HEART DISEASE OF [place] CORONARY ARTERY W/O ANG PCTRS Status: Acute Qualifiers: Coronary Disease-Associated Artery/Lesion type: [place] artery [place] vs. 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 The patient is pleasantly confused due to underlying dementia. He is on warfarin for atrial fibrillation. INR is 1.8. Acute renal failure likely due to dehydration and gentamicin. Cr improving. Continue IVF. Losartan and hydrochlorothiazide are on hold. The patient completed 5 days of antibiotics for pneumonia. Mineral oil enema for constipation was adminstered yesterday. 2 BMs reported.
[2020-01-25] MEDS: Sodium Chloride 0.9% 1,000 ML IV SCH ×3 (01:09→15:17)
[2020-01-25] MEDS: hydrALAZINE 25 MG TAB PO PRN (03:53)
[2020-01-25 05:19] LABS: #Eosinphils 0.1 thou/uL (0.0-0.7); #Monocytes 0.8 thou/uL (0.11-0.59); #Neutrophils 10.8 thou/uL (1.40-6.50); %Eosinophils 0.5 % (0.0-10.0); %Lymphocytes 7.9 % (21.0-51.0); %Monocytes 6.5 % (0.0-10.0); %Neutrophils 85.1 % (42.0-75.0); Hemoglobin 11.7 g/dL (14.0-18.0); INR-International Normal Ratio 2.5; Mean Corpuscular HGB CONC 32.1 g/dL (32.0-36.0); Mean Corpuscular Hemoglobin 31.9 pg (27.0-31.0); Mean Corpuscular Volume 99.5 fL (78.0-98.0); Mean Platelet Volume 9.6 fL (7.4-10.4); Platelet Count 157 thou/uL (130-400); Prothrombin Time 27.6 sec (12.0-14.7); RBC Distribution Width 11.8 % (11.5-14.5); Red Blood Cell (RBC) Count 3.67 mill/uL (4.70-6.10); White Blood Cell (WBC) Count 12.7 thou/uL (4.8-10.8)
[2020-01-25 05:41] LABS: Anion Gap 11 mmol/L (10-20); BUN (Urea Nitrogen) 32 mg/dL (8.4-25.7); Calc. Creatinine Clearance 45 mL/min (70-130); Calcium 7.8 mg/dL (7.8-10.44); Carbon Dioxide 26 mmol/L (23-31); Chloride 101 mmol/L (98-107); Estimated GFR-MDRD 45; Glucose 135 mg/dL (83-110); Potassium 3.7 mmol/L (3.5-5.1); Sodium 134 mmol/L (136-145)
[2020-01-25] MEDS: Trospium 20 MG TAB PO SCH (09:21)
[2020-01-25] MEDS: Amlodipine 5 MG TAB PO SCH (09:22)
[2020-01-25] MEDS: Carvedilol 6.25 MG TAB PO SCH (09:22)
[2020-01-25] MEDS: Oxybutynin 5 MG TAB PO SCH (09:22)
[2020-01-25] MEDS ORDERED: Artificial Tear Sol 15 ML BOT EA EYE PRN (11:12)
[2020-01-25 15:41] VITALS: BP 149/74; TEMP 99.6
[2020-01-25] MEDS: Warfarin Sodium 7.5 MG TAB PO SCH (15:49)
--- NOTE | 2020-01-26 02:44 | DIS ---
DATE OF ADMISSION: 01/13/2020 DATE OF DISCHARGE: 01/25/2020 DISCHARGE DIAGNOSES: 1. Acute respiratory failure with hypoxia. 2. Aspiration pneumonia. 3. Atrial fibrillation. 4. Guillain-[place] syndrome. 5. Dementia. 6. Coronary artery disease. DISCHARGE MEDICATIONS: 1. Augmentin 1 tablet orally twice daily for 5 days. 2. Dulcolax 10 mg per rectal daily as needed for constipation. 3. Artificial Tears 1-2 drops each eye as needed for dry eyes 4 times a day. 4. Amlodipine 5 mg orally daily. 5. Atorvastatin 20 mg orally nightly. 6. Carvedilol 6.25 mg orally twice daily. 7. Donepezil 5 mg orally nightly. 8. Nitroglycerin 0.4 mg sublingual q.5 minutes as needed for chest pain. 9. Oxybutynin 10 mg orally daily. 10. Zoloft 100 mg orally daily. 11. Tolterodine tartrate (Detrol) 4 mg orally nightly. 12. Warfarin 5 mg orally daily. HISTORY OF PRESENT ILLNESS AND HOSPITAL COURSE: The patient is an 85-year-old male with past medical history of dementia, hypertension, and hyperlipidemia, who was brought to the hospital by his family due to inability to walk. The patient was found to be hypoxic in the ER. Initial evaluation revealed the possibility of aspiration pneumonia. Neurology consulted for his lower extremity weakness and the impression was Guillain-[place] syndrome. The family refused lumbar puncture to assess for albuminocytologic dissociation. The patient was managed with IVIG for 3 days and his weakness is slightly improved with physical therapy over the duration of his hospital stay. He is currently completing his IV antibiotic course for his pneumonia. Acute kidney injury developed during his hospital stay due to dehydration and this has been improving with IV fluids. Job ID: [id number]
--- NOTE | 2020-01-27 16:00 | EKG ---
Test Reason : Blood Pressure : / mmHG Vent. Rate : 064 BPM Atrial Rate : 076 BPM P-R Int : 000 ms QRS Dur : 080 ms QT Int : 402 ms P-R-T Axes : 000 060 106 degrees QTc Int : 414 ms Atrial fibrillation Anteroseptal infarct , age undetermined Abnormal ECG Confirmed by KIRTSEN ABDULLAHI ([id number]), greeting card editor CHAD SAUNDERS ([id number]) on 01/27/2020 4:00:28 PM Referred By: Confirmed By:KIRSTEN ABDULLAHI
== END 2020-01-25 16:29 | DRG 94 ==
LOC: ERS 19:14 → SURG A 23:01
PROVIDERS: ADMIT Internal Medicine; ATTEND Internal Medicine
PROC: 30233S1 Transfusion of Nonautologous Globulin into Peripheral Vein, Percutaneous Approach (ICD-10-PCS; principal; 2020-01-17)
DX: G61.0 Guillain-Barre syndrome (principal); J69.0 Pneumonitis due to inhalation of food and vomit; J96.01 Acute respiratory failure with hypoxia; G93.41 Metabolic encephalopathy; N17.9 Acute kidney failure, unspecified; I48.21 Permanent atrial fibrillation; F03.90 Unspecified dementia, unspecified severity, without behavioral disturbance, psychotic disturbance, mood disturbance, and anxiety; I25.10 Atherosclerotic heart disease of native coronary artery without angina pectoris; E78.5 Hyperlipidemia, unspecified; Z20.828 Contact with and (suspected) exposure to other viral communicable diseases; E86.0 Dehydration; F32.9 Major depressive disorder, single episode, unspecified; E87.6 Hypokalemia; K59.00 Constipation, unspecified; I12.9 Hypertensive chronic kidney disease with stage 1 through stage 4 chronic kidney disease, or unspecified chronic kidney disease; N18.30 Chronic kidney disease, stage 3 unspecified; M10.9 Gout, unspecified; Z95.1 Presence of aortocoronary bypass graft; Z88.2 Allergy status to sulfonamides; Z88.1 Allergy status to other antibiotic agents; Z88.8 Allergy status to other drugs, medicaments and biological substances; Z79.01 Long term (current) use of anticoagulants
CPT/HCPCS: 36415; 36416; 70450; 71045; 80048; 80053; 81003; 81015; 82728; 82805; 83880; 84484; 85025; 85379; 85610; 85730; 86140; 87040; 87086; 87635; 87804; 90471; 90662; 93005; 93306; 94150; 94640; G0008; J0456; J0692; J0696; J1568; J1580; J2920; J3490; J7050; J7512; J7620; U0003